=== PATIENT | female | born 2000 | race Two or more races ===

== ENCOUNTER 2024-03-21 09:29 | Inpatient (IN) | payer OTHER ==
[~2024-03-21] VITALS: Ht 182.9 cm; Wt 55.1 kg
[2024-03-21 10:21] LABS: Basophils # (auto) 0.1 10 ^3/uL (0-0.2); Basophils % (auto) 1.1 % (0.0-2.0); Eosinophils # (auto) 0 10 ^3/uL (0-0.8); Eosinophils % (auto) 0.2 % (0.0-7.0); Hematocrit 39.5 % (36.0-46.0); Hemoglobin 13.7 g/dL (12.2-16.2); Lymphocytes # (auto) 0.9 10 ^3/uL (0.4-5.4); Lymphocytes % (auto) 14.5 % (10.0-50.0); Mean Corpuscular Hemoglobin 34.4 pg (28.0-32.0); Mean Corpuscular Hgb Conc. 34.6 g/dL (32.0-36.0); Mean Corpuscular Volume 99.2 fL (80.0-100.0); Monocytes # (auto) 0.5 10 ^3/uL (0-1.3); Monocytes % (auto) 8.5 % (0.0-12.0); Neutrophils # (auto) 4.7 10 ^3/uL (1.6-8.6); Neutrophils % (auto) 75.7 % (37.0-80.0); Nucleated Red Blood Cells % 0.2 %; Red Blood Cells 3.98 10^6/uL (4.0-5.20); Red Cell Distribution Width 14.5 % (11.8-14.3); White Blood Cell 6.2 10^3/uL (4.4-10.8)
[2024-03-21 10:58] LABS: Alanine Aminotransferase 96 U/L (7-40); Albumin 4.5 g/dL (3.2-4.8); Alkaline Phosphatase 148 U/L (46-116); Anion Gap 10 (5-15); Aspartate Aminotransferase 146 U/L (13-40); Calcium 10.4 mg/dL (8.7-10.4); Carbon Dioxide 27 mmol/L (20-30); Chloride 100 mmol/L (98-107); Glucose 122 mg/dL (74-106); Sodium 137 mmol/L (136-145)
[2024-03-21 10:59] LABS: Bilirubin, Total 0.8 mg/dL (0.2-1.0)
[2024-03-21 11:06] LABS: BUN/Creatinine Ratio 9.8 (10.0-20.0); Blood Urea Nitrogen < 5 mg/dL (9-23)
[2024-03-21 11:19] VITALS: RESP 18; O2SAT 96
[2024-03-21] MEDS: SODIUM CHLORIDE 0.9% 1,000 ML IV ONE ×2 (11:33→11:34)
[2024-03-21] MEDS: THIAMINE 100mg/ml INJ (200mg/2ml VIAL) IV ONE (11:40)
[2024-03-21] MEDS ORDERED: ONDANSETRON HCL 4 MG/2 ML VIAL IV PRN (13:30)
[2024-03-21] MEDS ORDERED: HYDROcodone-ACET 5/325MG TAB PO PRN (13:30)
[2024-03-21] MEDS: LACTATED RINGER'S 2,000 ML IV ONE (13:30)
[2024-03-21] MEDS ORDERED: ACETAMINOPHEN 325 MG TAB PO PRN (13:30)
[2024-03-21] MEDS: PANTOPRAZOLE 40 MG/10 ML VIAL INJ IV SCH (13:30)
[2024-03-21] MEDS ORDERED: DOCUSATE SOD 100 MG CAP PO PRN (13:30)
[2024-03-21] MEDS: SODIUM CHLOR 0.9% PF (SALINE LOCK) 10ML VIAL/SYR IV SCH (14:22)
[2024-03-21] MEDS: LACTATED RINGER'S 1,000 ML IV ONE (15:50)
[2024-03-21 16:11] VITALS: PULSE 83; RESP 19; O2SAT 100
[2024-03-21 16:30] VITALS: BP 127/93; PULSE 83; RESP 19; TEMP 98; O2SAT 100
[2024-03-21] MEDS: LORazepam 2MG/ML-1ML VIAL IV PRN (19:12)
[2024-03-21 22:00] VITALS: BP 122/73; PULSE 75; RESP 18; TEMP 97.6; O2SAT 97
[2024-03-22 01:00] VITALS: BP 123/92; PULSE 69; RESP 19; TEMP 98; O2SAT 99
[2024-03-22 05:00] VITALS: BP 130/80; PULSE 60; RESP 17; TEMP 98.3; O2SAT 98
[2024-03-22 08:14] VITALS: BP 115/87; PULSE 102; RESP 16; TEMP 96.8; O2SAT 98
[2024-03-22 09:09] LABS: Basophils # (auto) 0 10 ^3/uL (0-0.2); Basophils % (auto) 0.4 % (0.0-2.0); Eosinophils # (auto) 0.1 10 ^3/uL (0-0.8); Eosinophils % (auto) 1.3 % (0.0-7.0); Hematocrit 40.1 % (36.0-46.0); Hemoglobin 13.7 g/dL (12.2-16.2); Lymphocytes # (auto) 0.9 10 ^3/uL (0.4-5.4); Lymphocytes % (auto) 18.3 % (10.0-50.0); Mean Corpuscular Hemoglobin 34.2 pg (28.0-32.0); Mean Corpuscular Hgb Conc. 34.1 g/dL (32.0-36.0); Mean Corpuscular Volume 100.2 fL (80.0-100.0); Monocytes # (auto) 0.4 10 ^3/uL (0-1.3); Monocytes % (auto) 7.6 % (0.0-12.0); Neutrophils # (auto) 3.7 10 ^3/uL (1.6-8.6); Neutrophils % (auto) 72.4 % (37.0-80.0); Nucleated Red Blood Cells % 0.1 %; Red Cell Distribution Width 14.8 % (11.8-14.3); White Blood Cell 5.1 10^3/uL (4.4-10.8)
[2024-03-22] MEDS: MAALOX PLUS or MAALOX 30 ML PO PRN (09:14)
[2024-03-22] MEDS: LACTULOSE 20Gm/30ML SOLN PO ONE (09:14)
[2024-03-22] MEDS: POTASSIUM CHL 20 Meq TABLET PO ONE ×2 (09:14→14:00)
[2024-03-22] MEDS: THIAMINE HCL 100 MG TAB PO SCH (09:15)
[2024-03-22] MEDS: ENOXAPARIN SOD 40 MG/0.4 ML SYRINGE SC SCH (09:15)
[2024-03-22] MEDS: FOLIC ACID 1 MG TAB PO SCH (09:15)
[2024-03-22 09:32] LABS: Alanine Aminotransferase 73 U/L (7-40); Alkaline Phosphatase 131 U/L (46-116); Anion Gap 10 (5-15); Aspartate Aminotransferase 132 U/L (13-40); Calcium 9.5 mg/dL (8.7-10.4); Carbon Dioxide 24 mmol/L (20-30); Chloride 104 mmol/L (98-107); Glucose 96 mg/dL (74-106); Potassium 3.3 mmol/L (3.5-5.1); Sodium 138 mmol/L (136-145)
[2024-03-22 09:33] LABS: Albumin 4.1 g/dL (3.2-4.8); Bilirubin, Total 2.3 mg/dL (0.2-1.0); Total Protein 7.4 g/dL (5.7-8.2)
[2024-03-22 09:34] LABS: Blood Urea Nitrogen < 5 mg/dL (9-23)
[2024-03-22 12:36] VITALS: BP 127/91; PULSE 73; RESP 15; TEMP 97.1; O2SAT 100
[2024-03-22] MEDS ORDERED: FOLI-119 PO (14:08)
[2024-03-22] MEDS ORDERED: THIA100T10 PO (14:08)
[2024-03-22 15:34] VITALS: BP 127/91; PULSE 73; RESP 15; TEMP 97.3; O2SAT 100
== END 2024-03-22 16:34 | disposition home or self-care (01) | DRG 203 ==
LOC: ER 09:29 → OVERFLOW 13:23 → CENTRAL 17:05
PROVIDERS: ADMIT Internal Medicine Pulmonary Disease; ATTEND Internal Medicine Pulmonary Disease
DX: M94.0 Chondrocostal junction syndrome [Tietze] (principal); E88.89 Other specified metabolic disorders; E80.6 Other disorders of bilirubin metabolism; F10.239 Alcohol dependence with withdrawal, unspecified; R74.01 Elevation of levels of liver transaminase levels; Y90.0 Blood alcohol level of less than 20 mg/100 ml; Z79.899 Other long term (current) drug therapy
CPT/HCPCS: 36415; 71045; 76705; 80053; 80320; 83735; 83880; 84484; 85025; 85379; 93005; 93970; 96361; 96374; 96375; G0378; J2470

== ENCOUNTER 2024-12-18 14:35 | Inpatient (IN) | payer MEDICAID, OTHER ==
[~2024-12-18] VITALS: Ht 160 cm; Wt 49.9 kg
[2024-12-18] MEDS: cefTRIAXone 1GM/50ML D5W 50 ML IV ONE (00:30)
[2024-12-18] MEDS: chlordiazePOXIDE HCL 25 MG CAP PO ONE (08:35)
[~2024-12-18 14:35] MED LIST: FOLI-119 PO; THIA100T10 PO
[2024-12-18] MEDS: SODIUM CHLORIDE 0.9% 1,000 ML IV ONE (15:00)
--- NOTE | 2024-12-18 15:01 | ED.PDOC ---
History of Present Illness HPI Comments 24 y.o female presents to the ED for a chief complaint of substernal chest pain associated with dizziness, blurred vision and right sided head pain s/p fall 3 days ago. Patient is unable to recall fall event due to drinking alcohol and states she has a history of alcohol abuse. Patient's last heavy drink was 3 days ago and today had one. Patient presents with tremors and constant chest pain that is non radiating. She denies any medical history or allergies. Chief Complaint: Withdrawal Time Seen by MD: 15:40 Primary Care Provider: Unknown Reviewed Notes: Nurses Notes, Medications, Allergies Allergies: Coded Allergies: NO KNOWN ALLERGIES (Unverified , 03/21/24) Home Meds Active Scripts Thiamine Hcl (VITAMIN B-1) 100 Mg Tb, 100 MG PO DAILY for 30 Days, #30 TAB Prov:FABIANO MURDOCK RESIDENT 03/22/24 Folic Acid (Folic Acid) 1 Mg Tab, 1 MG PO DAILY for 30 Days, #30 TAB Prov:FABIANO MURDOCK RESIDENT 03/22/24 Information Source: Patient Mode of Arrival: Ambulatory Severity: Moderate Timing: Hours Duration: Since onset Past Medical History PAST MEDICAL HISTORY: Denies Surgical History: Denies all surgeries ANIMAL KILLER History: No Pertinent ANIMAL KILLER History Family History Family History: Unknown Social History Smoker: Cigarettes Alcohol: Heavy Drugs: Marijuana Lives In: Home Constitutional: denies: chills, diaphoresis, fatigue, fever, malaise, sweats, weakness, others EENTM: reports: blurred vision; denies: double vision, ear bleeding, ear discharge, ear drainage, ear pain, ear ringing, eye pain, eye redness, hearing loss, mouth pain, mouth swelling, nasal discharge, nose bleeding, nose congestion, nose pain, photophobia, tearing, throat pain, throat swelling, voice changes, others Respiratory: denies: cough, hemoptysis, orthopnea, SOB at rest, shortness of breath, SOB with excertion, stridor, wheezing, others Cardiovascular: reports: chest pain; denies: dizzy spells, diaphoresis, Dyspnea on exertion, edema, irregular heart beat, left arm pain, lightheadedness, palpitations, PND, syncope, others Gastrointestinal: denies: abdomen distended, abdominal pain, blood streaked bowels, constipated, diarrhea, dysphagia, difficulty swallowing, hematemesis, melena, nausea, poor appetite, poor fluid intake, rectal bleeding, rectal pain, vomiting, others Genitourinary: denies: abnormal vagina bleeding, burning, dyspareunia, dysuria, flank pain, frequency, hematuria, incontinence, pain, , vagina discharge, urgency, others Neurological: reports: dizziness, headache, tremors; denies: fainting, left sided numbness, left sided weakness, numbness, paresthesia, pre-existing deficit, right sided numbness, right sided weakness, seizure, speech problems, tingling, weakness, others Musculoskeletal: denies: back pain, gout, joint pain, joint swelling, muscle pain, muscle stiffness, neck pain, others Integumetry: denies: bruises, change in color, change in hair/nails, dryness, laceration, lesions, lumps, rash, wounds, others Allergic/Immunocompromised: denies: Difficulty Healing, Frequent Infections, Hives, Itching, others Hematologic/Lymphatic: denies: anemia, blood clots, easy bleeding, easy bruising, swollen glands, others Endocrine: denies: excessive hunger, excessive sweating, excessive thirst, excessive urination, flushing, intolerance to cold, intolerance to heat, une xplained weight gain, unexplained weight loss, others Psychiatric: denies: anxiety, bipolar disorder, depression, hopeless, panic disorder, schizophrenia, sleepless, suicidal, others Physical Exam General Appearance: Mild Distress HEENT: PERRL/EOMI (Face symmetric. Moist mucous membranes.), Other (Face s ymmetric. Moist mucous membranes.) Neck: Full Range of Motion, Non-Tender, Normal Inspection, Supple Respiratory: Lungs Clear, No Accessory Muscle Use, No Respiratory Distress, Normal Breath Sounds, Other (Sternal abrasion and tenderness to palpation. No crepitus.) Cardiovascular: No Edema, No JVD, Tachycardia Breast Exam: Deferred Gastrointestinal: Non Tender, Soft Genitalia: Deferred Pelvic: Deferred Rectal: Deferred Extremities: Normal inspection, Normal range of motion, Non-tender, No pedal edema Neurologic: Alert (Oriented x4), Normal Affect, Other (Anxious. Tremulous. Ambulatory.) Cerebellar Function: Tremor Reflexes: NOT DONE Skin: Dry, Normal Color, Warm Lymphatic: NOT DONE Was a procedure done? Was a procedure done?: No Differential Dx Considerations may include: Minor head injury/concussion, skull fracture, intracranial hemorrhage, facial contusion, facial fracture, ETOH withdrawal, Dehydration/hypovolemia, Electrolyte imbalance, Anxiety, among others X-Ray, Labs, Meds, VS Vital Signs Date Time Temp Pulse Resp B/P (MAP) Pulse Ox O2 Delivery O2 Flow Rate FiO2 12/18/24 18:40 98.2 95 16 110/77 (88) 99 98.2 12/18/24 15:08 98.0 110 18 119/74 (89) 100 98.0 Lab Test 12/18/24 14:59 Range/Units White Blood Count 5.8 4.4-10.8 10^3/uL Red Blood Count 4.05 4.0-5.20 10^6/uL Hemoglobin 14.2 12.2-16.2 g/dL Hematocrit 41.2 36.0-46.0 % Mean Corpuscular Volume 101.7 H 80.0-100.0 fL Mean Corpuscular Hemoglobin 35.1 H 28.0-32.0 pg Mean Corpuscular Hemoglobin Concent 34.5 32.0-36.0 g/dL Red Cell Distribution Width 12.8 11.8-14.3 % Platelet Count 304 140-450 10^3/uL Mean Platelet Volume 7.8 6.9-10.8 fL Neutrophils (%) (Auto) 71.7 37.0-80.0 % Lymphocytes (%) (Auto) 19.8 10.0-50.0 % Monocytes (%) (Auto) 7.3 0.0-12.0 % Eosinophils (%) (Auto) 0.4 0.0-7.0 % Basophils (%) (Auto) 0.8 0.0-2.0 % Neutrophils # (Auto) 4.2 1.6-8.6 10 ^3/uL Lymphocytes # (Auto) 1.2 0.4-5.4 10 ^3/uL Monocytes # (Auto) 0.4 0-1.3 10 ^3/uL Eosinophils # (Auto) 0 0-0.8 10 ^3/uL Basophils # (Auto) 0 0-0.2 10 ^3/uL Nucleated Red Blood Cells 0.2 % Sodium Level 137 136-145 mmol/L Potassium Level 3.5 3.5-5.1 mmol/L Chloride Level 98 98-107 mmol/L Carbon Dioxide Level 26 20-31 mmol/L Anion Gap 13 5-15 Blood Urea Nitrogen 6 L 9-23 mg/dL Creatinine 0.44 L 0.550-1.02 mg/dL Glomerular Filtration Rate Calc 137 >90 mL/min BUN/Creatinine Ratio 13.6 10.0-20.0 Serum Glucose 103 74-106 mg/dL Calcium Level 10.2 8.7-10.4 mg/dL Plasma/Serum Blood Alcohol 140.3 H <10 mg/dL Current Medications Medications (Trade) Dose Ordered Sig/Daniela Route Start Time Stop Time Status Last Admin Sodium Chloride 1,000 ml @ 1,000 mls/hr Q1H ONCE IV 12/18/24 15:00 12/18/24 15:59 DC 12/18/24 15:00 Lorazepam (Ativan Inj) 1 mg ONCE ONCE IV 12/18/24 15:00 12/18/24 15:01 DC 12/18/24 18:35 Chlordiazepoxide HCl (Librium Capsule) 50 mg ONCE ONCE PO 12/18/24 15:00 12/18/24 15:01 DC 12/18/24 08:35 PROCEDURE(s): HWOCT - HEAD WITHOUT CONTRAST REASON: trauma ORDER NUMBER(s): [id number], ACCESSION NUMBER(s): [id number] EXAM: CT HEAD WITHOUT CONTRAST; DATE: 12/18/2024 08:26 PM HISTORY: trauma COMPARISON: None TECHNIQUE: Axial images were obtained and reformatted in coronal and sagittal planes. All CT scans at this medical facility are performed using dose modulation techniques as appropriate to a performed exam including the following: Automated exposure control was utilized; adjustment of the MA and/or KV according to patient size; and use of iterative reconstruction technique. CT Dose: CTDI volume is C1 mGy. Dose-length product is 2200 mGy*cm FINDINGS: Supratentorial Region: No evidence for large acute territorial ischemia. No intracranial hemorrhage is noted. Posterior Fossa: No acute abnormality. Brainstem: Unremarkable. Sellar/Suprasellar Region: Unremarkable. Ventricles, Cisterns, Sulci: Age-appropriate. Orbits: Unremarkable. Paranasal Sinuses: Unremarkable. Mastoid Air Cells: Unremarkable. Vasculature: Unremarkable. Bones/Soft Tissues: No acute abnormality. Other: None. IMPRESSION: 1. No acute intracranial process. EDURE(s): FAC2C - MAXILLOFACIAL WITHOUT REASON: trauma ORDER NUMBER(s): [id number], ACCESSION NUMBER(s): [id number] Procedure: CT MAXILLOFACIAL WITHOUT Study Date and Requested Time: 12/18/2024 08:26 PM History: trauma Comparison: None Dose: CTDI: 60.94 mGy DLP: 2200.99 mGycm Technique: Multiplanar images obtained through the face without intravenous contrast. Findings: No evidence of acute fracture or other significant osseous abnormality. Orbits and globes grossly unremarkable. Mild mucoperiosteal thickening of the right maxillary sinus. Otherwise, the Paranasal sinuses and right mastoid clear. Partial Opacification of left posterior and inferior mastoid. The nasal septum is relatively midline in position with left-sided nasal spurring. Nasal cavity and visualized nasopharynx and oropharynx grossly unremarkable with no evidence of focal lesion. Minimal right infraorbital soft tissue edema. Cerumen within the right external auditory canal. Impression: No evidence of acute traumatic fractures. Minimal right infraorbital soft tissue edema. Left mastoid disease. EDURE(s): CXR2 - CHEST TWO VIEWS ROUTINE REASON: sternal pain s/p fall ORDER NUMBER(s): [id number], ACCESSION NUMBER(s): [id number] EXAM: XY CHEST TWO VIEWS ROUTINE CLINICAL HISTORY: sternal pain s/p fall TECHNIQUE: Frontal and lateral views of the chest WID: COMPARISON: None FINDINGS: Lines and tubes: None Chest: The heart size and pulmonary vasculature is within normal limits. No pleural effusion, pneumothorax, or consolidation. The osseous structures are grossly intact. IMPRESSION: No acute cardiopulmonary abnormality. X-Ray, Labs, Meds, VS Comment 24-year-old female with a history of alcohol dependence complaining of right- sided headache, right-sided facial pain, dizziness and blurred vision status post fall while intoxicated. Vitals remarkable for heart rate 110, Exam remarkable for right head and facial soft tissue tenderness and right facial bruising, sternal tenderness to palpation with mild bruising, tremulousness Rhythm strip independently interpreted by me: Sinus tach, rate 110, no ectopy. CT head unremarkable CT maxillofacial bones Impression: No evidence of acute traumatic fractures. Minimal right infraorbital soft tissue edema. Left mastoid disease. Chest x-ray two views remarkable CBC and basic metabolic panel unremarkable, hCG negative, alcohol 140.3, UA, and urine drug screen pending Patient treated with the following in the ED: 2 L 0.9 normal saline IV bolus, Ativan 1 mg IV, Librium 50 mg p.o., Rocephin 1 g IV Re-evaluation, patient states symptoms have improved. Vitals are stable. Plan is to admit the patient for treatment of alcohol withdrawal and for IV antibiotics. Time of 1ST Reevaluation: 15:00 Reevaluation 1ST: Unchanged Patient Education/Counseling: Diagnosis, Treatment, Prognosis Family Education/Counseling: No Family Present Departure 1 Departure Time of Disposition: 22:13 Impression: Primary Impression: Alcohol withdrawal Additional Impression: Mastoiditis Disposition: 07 LEFT AWOL/ELOPED Admit to: Tele Condition: Guarded Critical Care Note Critical Care Time?: No Stability Stability form required: No I personally scribed for RUT ZAPATA MD ([facility]) on 12/18/24 at 15:01. Electronically submitted by Wendy Whitney ([facility]). RUT ZAPATA MD Dec 18, 2024 15:01
[2024-12-18 15:24] LABS: Potassium 3.5 mmol/L (3.5-5.1); Sodium 137 mmol/L (136-145)
[2024-12-18 15:25] LABS: Anion Gap 13 (5-15); Calcium 10.2 mg/dL (8.7-10.4); Carbon Dioxide 26 mmol/L (20-31)
[2024-12-18 15:27] LABS: Chloride 98 mmol/L (98-107)
[2024-12-18 15:30] LABS: BUN/Creatinine Ratio 13.6 (10.0-20.0); Blood Urea Nitrogen 6 mg/dL (9-23); Glucose 103 mg/dL (74-106)
[2024-12-18 15:33] LABS: Basophils # (auto) 0 10 ^3/uL (0-0.2); Basophils % (auto) 0.8 % (0.0-2.0); Eosinophils # (auto) 0 10 ^3/uL (0-0.8); Eosinophils % (auto) 0.4 % (0.0-7.0); Hematocrit 41.2 % (36.0-46.0); Hemoglobin 14.2 g/dL (12.2-16.2); Lymphocytes # (auto) 1.2 10 ^3/uL (0.4-5.4); Lymphocytes % (auto) 19.8 % (10.0-50.0); Mean Corpuscular Hemoglobin 35.1 pg (28.0-32.0); Mean Corpuscular Hgb Conc. 34.5 g/dL (32.0-36.0); Mean Corpuscular Volume 101.7 fL (80.0-100.0); Monocytes # (auto) 0.4 10 ^3/uL (0-1.3); Monocytes % (auto) 7.3 % (0.0-12.0); Neutrophils # (auto) 4.2 10 ^3/uL (1.6-8.6); Neutrophils % (auto) 71.7 % (37.0-80.0); Nucleated Red Blood Cells % 0.2 %; Platelet Count (auto) 304 10^3/uL (140-450); Red Blood Cells 4.05 10^6/uL (4.0-5.20); Red Cell Distribution Width 12.8 % (11.8-14.3); White Blood Cell 5.8 10^3/uL (4.4-10.8)
[2024-12-18] MEDS: LORazepam 2MG/ML-1ML VIAL IV ONE (18:35)
--- NOTE | 2024-12-18 20:58 | DVH ---
EXAM: XY CHEST TWO VIEWS ROUTINE CLINICAL HISTORY: sternal pain s/p fall TECHNIQUE: Frontal and lateral views of the chest WID: COMPARISON: None FINDINGS: Lines and tubes: None Chest: The heart size and pulmonary vasculature is within normal limits. No pleural effusion, pneumothorax, or consolidation. The osseous structures are grossly intact. IMPRESSION: No acute cardiopulmonary abnormality.
--- NOTE | 2024-12-18 21:23 | DVH ---
EXAM: CT HEAD WITHOUT CONTRAST; DATE: 12/18/2024 08:26 PM HISTORY: trauma COMPARISON: None TECHNIQUE: Axial images were obtained and reformatted in coronal and sagittal planes. All CT scans at this medical facility are performed using dose modulation techniques as appropriate t o a performed exam including the following: Automated exposure control was utilized; adjustment of th e MA and/or KV according to patient size; and use of iterative reconstruction technique. CT Dose: CTDI volume is C1 mGy. Dose-length product is 2200 mGy*cm FINDINGS: Supratentorial Region: No evidence for large acute territorial ischemia. No intracranial hemorrhage is noted. Posterior Fossa: No acute abnormality. Brainstem: Unremarkable. Sellar/Suprasellar Region: Unremarkable. Ventricles, Cisterns, Sulci: Age-appropriate. Orbits: Unremarkable. Paranasal Sinuses: Unremarkable. Mastoid Air Cells: Unremarkable. Vasculature: Unremarkable. Bones/Soft Tissues: No acute abnormality. Other: None. IMPRESSION: 1. No acute intracranial process.
--- NOTE | 2024-12-18 21:37 | DVH ---
Procedure: CT MAXILLOFACIAL WITHOUT Study Date and Requested Time: 2024 08:26 PM History: trauma Comparison: None Dose: CTDI: 60.94 mGy DLP: 2200.99 mGycm Technique: Multiplanar images obtained through the face without intravenous contrast. Findings: No evidence of acute fracture or other significant osseous abnormality. Orbits and globes grossly unr emarkable. Mild mucoperiosteal thickening of the right maxillary sinus. Otherwise, the Paranasal sinuses and ri ght mastoid clear. Partial Opacification of left posterior and inferior mastoid. The nasal septum is relatively midline in position with left-sided nasal spurring. Nasal cavity and visualized nasopharynx and oropharynx grossly unremarkable with no evidence of focal lesion. Minimal right infraorbital soft tissue edema. Cerumen within the right external auditory ca nal. Impression: No evidence of acute traumatic fractures. Minimal right infraorbital soft tissue edema. Left mastoid disease.
--- NOTE | 2024-12-18 23:52 | DVHHPRES ---
History of Present Illness Resident Creating Document: JOIE PALUMBO RESIDENT History of Present Illness Ms Raymond is a 24-year-old female with past medical history of alcoholism who does not follow a physician presented to the ER with a chief complaint of mechanical fall and intractable nausea and vomiting starting 12/15. Patient reports that she drinks around a large bottle of vodka daily at home, patient the same on 12/15 and then experienced a fall when she tripped in her house and hit her head and chest onto a hard surface. Patient was knocked out and her woke the patient up, denies any seizure-like activity, losing urine or bowel incontinence. Patient has been experiencing intractable nausea and vomiting, and vomited almost 10 times today, mostly mucoid denies any hemoptysis or hematemesis. Also reports chest pain which is sharp and pressure-type, midsternal radiating to the left shoulder, increases with ambulation or any kind of movement. Patient also reports palpable chest tenderness. Patient was previously admitted in this facility for similar reasons in February 21 Past medical history: Chronic alcoholism Past surgical history: None Social history: Lives with , drinks a large bottle of vodka daily for the past 12 years, uses marijuana gummies. PCP: None Home medications: None Patient seen and examined in the ER. Has a resting tremor. CIWA score is 17 Smoke: Quit ALCOHOL: heavy Drugs: Marijuana Lives: with Family Review of Systems Constitutional: Yes: Chills Respiratory: Pleuritic Pain Cardiovascular: Chest Pain, Paroxysmal Noc. Dyspnea Gastrointestinal: Nausea, Vomiting, Abdominal Pain, Constipation Musculoskeletal: shoulder pain Allergies: Coded Allergies: NO KNOWN ALLERGIES (Unverified , 03/21/24) Exam Vital Signs Vital Signs Date Time Temp Pulse Resp B/P (MAP) Pulse Ox O2 Delivery O2 Flow Rate FiO2 12/18/24 18:40 98.2 95 16 110/77 (88) 99 98.2 Exam Young female patient sitting in the chair comfortably in the ER, no acute distress General: Well-built, afebrile, palor, mucosae are moist Cardiovascular: Tachycardic but regular S1 and S2. No murmurs, gallops or rubs. No JVD elevation. No pedal edema. Palpable chest tenderness Respiratory: Normal B/L air entry on room air. Clear lung sounds on auscultation Abdomen: Soft, nontender, nondistended, normoactive bowel sounds, no rebound tenderness, no organomegaly, no masses Genitourinary: Deferred MSK/skin: Mobilizes 4 limbs. Skin is dry and warm Neurological: No motor, no sensitive deficits, normal speech. Pupils are isocoric and reactive. Psych/Mental Status: A/Ox3 Labs/Xrays Labs Test 12/18/24 14:59 Range/Units White Blood Count 5.8 4.4-10.8 10^3/uL Red Blood Count 4.05 4.0-5.20 10^6/uL Hemoglobin 14.2 12.2-16.2 g/dL Hematocrit 41.2 36.0-46.0 % Mean Corpuscular Volume 101.7 H 80.0-100.0 fL Mean Corpuscular Hemoglobin 35.1 H 28.0-32.0 pg Mean Corpuscular Hemoglobin Concent 34.5 32.0-36.0 g/dL Red Cell Distribution Width 12.8 11.8-14.3 % Platelet Count 304 140-450 10^3/uL Mean Platelet Volume 7.8 6.9-10.8 fL Neutrophils (%) (Auto) 71.7 37.0-80.0 % Lymphocytes (%) (Auto) 19.8 10.0-50.0 % Monocytes (%) (Auto) 7.3 0.0-12.0 % Eosinophils (%) (Auto) 0.4 0.0-7.0 % Basophils (%) (Auto) 0.8 0.0-2.0 % Neutrophils # (Auto) 4.2 1.6-8.6 10 ^3/uL Lymphocytes # (Auto) 1.2 0.4-5.4 10 ^3/uL Monocytes # (Auto) 0.4 0-1.3 10 ^3/uL Eosinophils # (Auto) 0 0-0.8 10 ^3/uL Basophils # (Auto) 0 0-0.2 10 ^3/uL Nucleated Red Blood Cells 0.2 % Sodium Level 137 136-145 mmol/L Potassium Level 3.5 3.5-5.1 mmol/L Chloride Level 98 98-107 mmol/L Carbon Dioxide Level 26 20-31 mmol/L Anion Gap 13 5-15 Blood Urea Nitrogen 6 L 9-23 mg/dL Creatinine 0.44 L 0.550-1.02 mg/dL Glomerular Filtration Rate Calc 137 >90 mL/min BUN/Creatinine Ratio 13.6 10.0-20.0 Serum Glucose 103 74-106 mg/dL Calcium Level 10.2 8.7-10.4 mg/dL Beta HCG, Quantitative 1.0 L 1.5-4.2 mIU/mL Plasma/Serum Blood Alcohol 140.3 H <10 mg/dL Assessment/Plan Assessment/Plan Alcoholic withdrawal-CIWA score 17 Chronic alcoholic dependence Mechanical fall and loss of consciousness Intractable nausea and vomiting Atypical chest pain, likely musculoskeletal Probable GERD Macrocytosis but no anemia Transaminitis Hypomagnesemia Plan: Head CT unremarkable for acute intracranial pathology IV lorazepam 1 mg Q 1 hour maximum of 3 doses ordered, followed by Librium Thiamine, folate supplemented. IV banana bag daily EKG pending, troponin I negative, BNP unremarkable Follow up with B12 and vitamin-D levels Follow up with liver ultrasound, hepatitis panel, lipase level 2 g magnesium ordered Pantoprazole 40 mg IV daily litigation services manager consulted for resources and primary care physician Lovenox 40 mg sc daily Diet: NPO Plan discussed with patient in which all questions have been answered Goals of care discussed for more than 20 minutes, full code status Case discussed with Dr. Potts Plan discussed with: Patient My Orders Orders - JOIE PALUMBO Procedure Category Date Status Time Admit ADMIT 12/18/24 Verified 23:51 Date of Service: Dec 18, 2024 Billing Provider: AG POTTS MD Common Visit Codes: [id number] INP/OBS CARE (HIGH) JOIE PALUMBO Dec 18, 2024 23:52
[2024-12-19] MEDS ORDERED: ONDANSETRON HCL 4 MG/2 ML VIAL IV PRN
[2024-12-19] MEDS ORDERED: HYDROcodone-ACET 5/325MG TAB PO PRN
[2024-12-19] MEDS ORDERED: KETOROLAC TROMETH 30 MG/ML 1ML VIAL IV ONE
[2024-12-19] MEDS: THIAMINE 100mg/ml INJ (200mg/2ml VIAL) IV ONE (00:44)
[2024-12-19] MEDS: FOLIC ACID 1 MG, MAGNESIUM SULF SDV 50% 8 MEQ, MULTIPLE VITAMIN 10 ML, THIAMINE INJ 100... INJ SCH (00:44)
[2024-12-19] MEDS: MULTIPLE VITAMIN TAB PO ONE (00:45)
[2024-12-19] MEDS: LORazepam 2MG/ML-1ML VIAL IV SCH (00:45)
[2024-12-19] MEDS: FOLIC ACID 1 MG TAB PO ONE (00:45)
[2024-12-19] MEDS: PANTOPRAZOLE 40 MG/10 ML VIAL INJ IV ONE (00:45)
[2024-12-19] MEDS: ACETAMINOPHEN 500 MG TAB or CAP PO PRN (00:46)
[2024-12-19] MEDS: ACETAMINOPHEN 325 MG TAB PO ONE (01:59)
[2024-12-19 02:09] LABS: Albumin 4.4 g/dL (3.2-4.8); Phosphorus 3.3 mg/dL (2.4-5.1); Total Protein 7.5 g/dL (5.7-8.2)
[2024-12-19 02:10] LABS: Bilirubin, Total 1.1 mg/dL (0.2-1.0)
[2024-12-19 02:28] LABS: Bilirubin, Direct 0.3 mg/dL (<0.3); Magnesium 1.5 mg/dL (1.6-2.6)
[2024-12-19 03:20] VITALS: BP 124/77; PULSE 75; RESP 17; TEMP 98.1; O2SAT 100
[2024-12-19 04:48] VITALS: BP 131/78; PULSE 89; RESP 15; TEMP 97.8; O2SAT 95
[2024-12-19 05:16] LABS: Basophils # (auto) 0 10 ^3/uL (0-0.2); Eosinophils # (auto) 0 10 ^3/uL (0-0.8); Hemoglobin 12.1 g/dL (12.2-16.2); Lymphocytes # (auto) 0.8 10 ^3/uL (0.4-5.4); Monocytes # (auto) 0.5 10 ^3/uL (0-1.3)
[2024-12-19 05:19] LABS: Basophils % (auto) 0.8 % (0.0-2.0); Eosinophils % (auto) 0.6 % (0.0-7.0); Hematocrit 34.6 % (36.0-46.0); Lymphocytes % (auto) 18.1 % (10.0-50.0); Mean Corpuscular Hemoglobin 35.6 pg (28.0-32.0); Mean Corpuscular Volume 101.7 fL (80.0-100.0); Monocytes % (auto) 11.4 % (0.0-12.0); Neutrophils # (auto) 3.1 10 ^3/uL (1.6-8.6); Neutrophils % (auto) 69.1 % (37.0-80.0); Nucleated Red Blood Cells % 0.2 %; Platelet Count (auto) 210 10^3/uL (140-450); Red Cell Distribution Width 12.6 % (11.8-14.3); White Blood Cell 4.4 10^3/uL (4.4-10.8)
[2024-12-19] MEDS: chlordiazePOXIDE HCL 25 MG CAP PO SCH (05:29)
[2024-12-19] MEDS: MAGNESIUM SULFATE 1GM/100ML 100 ML IV SCH (05:43)
[2024-12-19 05:50] LABS: Anion Gap 8 (5-15); Calcium 9.6 mg/dL (8.7-10.4); Carbon Dioxide 26 mmol/L (20-31); Chloride 102 mmol/L (98-107); Glucose 82 mg/dL (74-106); Potassium 3.5 mmol/L (3.5-5.1); Sodium 136 mmol/L (136-145); Total Protein 6.8 g/dL (5.7-8.2)
[2024-12-19 05:54] LABS: Alanine Aminotransferase 79 U/L (7-40); Alkaline Phosphatase 237 U/L (46-116); Aspartate Aminotransferase 183 U/L (13-40); BUN/Creatinine Ratio 12.2 (10.0-20.0); Blood Urea Nitrogen < 5 mg/dL (9-23)
[2024-12-19] MEDS: POTASSIUM CHL 20MEQ/50ML 50 ML IV ONE ×2 (06:47→07:00)
[2024-12-19] MEDS: ERGOCALCIFEROL 50,000 UNIT(1.25MG) CAP PO SCH (07:08)
[2024-12-19] MEDS ORDERED: SODIUM CHLORIDE 0.9% 1,000 ML IV SCH (08:15)
--- NOTE | 2024-12-19 09:04 | DVH ---
INDICATION: transamnitis TECHNIQUE: Multiple real-time sonographic images were obtained of the right upper quadrant. COMPARISON: US ABDOMEN LIMITED on DOS: 03/21/24 FINDINGS: The liver demonstrates heterogenous echotexture without focal mass lesions. The liver measu res 19 cm. There is no intrahepatic or extrahepatic ductal dilatation. The common duct measures 0. 2 mm. Gallbladder sludge.. The gallbladder wall measures 0.2 mm and is within normal limits. The right kidney measures 11 cm. The right kidney is normal in contour, size, and shape. The echogen icity is normal. Moderate right hydronephrosis. The pancreas is not well visualized due to overlying bowel gas. IMPRESSION: Gallbladder sludge. Moderate right hydronephrosis. Hepatic steatosis
[2024-12-19] MEDS: FOLIC ACID 1 MG TAB PO SCH (09:46)
[2024-12-19] MEDS ORDERED: PANTOPRAZOLE 40 MG/10 ML VIAL INJ IV SCH (10:00)
[2024-12-19] MEDS: THIAMINE 100mg/ml INJ (200mg/2ml VIAL) IM ONE (11:43)
[2024-12-19 12:05] LABS: Hepatitis B Surface Antibody Positive (Negative); Hepatitis B Surface Antigen Negative (Negative); Hepatitis C Antibody Negative (Negative)
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
[2024-12-20] MEDS ORDERED: THIAMINE HCL 100 MG TAB PO SCH (10:00)
[2024-12-20] MEDS ORDERED: chlordiazePOXIDE HCL 25 MG CAP PO SCH (10:00)
[2024-12-21] MEDS ORDERED: chlordiazePOXIDE HCL 25 MG CAP PO SCH (10:00)
[2024-12-22] MEDS ORDERED: chlordiazePOXIDE HCL 25 MG CAP PO SCH (07:00)
== END 2024-12-19 12:45 | disposition left against medical advice (07) | DRG 243 ==
LOC: ER 14:51 → OVERFLOW 23:51
PROVIDERS: ADMIT Student in an Organized Health Care Education/Training Program; ATTEND Emergency Medicine
DX: K21.9 Gastro-esophageal reflux disease without esophagitis (principal); N13.30 Unspecified hydronephrosis; K76.0 Fatty (change of) liver, not elsewhere classified; H70.892 Other mastoiditis and related conditions, left ear; F10.239 Alcohol dependence with withdrawal, unspecified; D75.89 Other specified diseases of blood and blood-forming organs; F17.210 Nicotine dependence, cigarettes, uncomplicated; E83.42 Hypomagnesemia; Z53.29 Procedure and treatment not carried out because of patient's decision for other reasons; Y90.6 Blood alcohol level of 120-199 mg/100 ml
CPT/HCPCS: 36415; 70450; 70486; 71046; 76705; 80048; 80053; 80076; 80320; 82306; 82607; 82746; 83036; 83690; 83735; 83880; 84100; 84443; 84484; 84702; 85025; 86706; 86803; 87040; 87340; 96365; 96375; G0378; J2470

== ENCOUNTER 2025-01-02 15:10 | Inpatient (IN) | payer MEDICAID ==
[~2025-01-02] VITALS: Ht 160 cm; Wt 49.5 kg
[2025-01-02] MEDS: LORazepam 2MG/ML-1ML VIAL IV ONE ×2 (15:37→20:42)
[2025-01-02 15:46] LABS: Basophils # (auto) 0.1 10 ^3/uL (0-0.2); Basophils % (auto) 0.8 % (0.0-2.0); Eosinophils # (auto) 0 10 ^3/uL (0-0.8); Eosinophils % (auto) 0.2 % (0.0-7.0); Hematocrit 42.3 % (36.0-46.0); Hemoglobin 14.7 g/dL (12.2-16.2); Lymphocytes # (auto) 0.7 10 ^3/uL (0.4-5.4); Lymphocytes % (auto) 9.7 % (10.0-50.0); Mean Corpuscular Hemoglobin 35.1 pg (28.0-32.0); Mean Corpuscular Hgb Conc. 34.7 g/dL (32.0-36.0); Mean Corpuscular Volume 100.9 fL (80.0-100.0); Monocytes # (auto) 0.5 10 ^3/uL (0-1.3); Monocytes % (auto) 6.3 % (0.0-12.0); Neutrophils # (auto) 6.3 10 ^3/uL (1.6-8.6); Nucleated Red Blood Cells % 0.1 %; Platelet Count (auto) 261 10^3/uL (140-450); Red Blood Cells 4.19 10^6/uL (4.0-5.20); Red Cell Distribution Width 12.8 % (11.8-14.3); White Blood Cell 7.6 10^3/uL (4.4-10.8)
--- NOTE | 2025-01-02 16:24 | ED.PDOC ---
History of Present Illness HPI Comments 24-year-old female with PMHx Alcoholism presents with a chief complaint of alcohol withdrawal. Patient states that her last drink was last night where she had a beer. Patient reports a headache, dizziness, nausea, vomiting, chest pressure, and tremors. Patient normally drinks daily or hard liquor. Patient is visibly anxious in triage and unable to sit still. Patient sttates that visual hallucinations and hears "ringing". Chief Complaint: Withdrawal Time Seen by MD: 16:22 Primary Care Provider: UNKNOWN Reviewed Notes: Medications, Allergies Allergies: Coded Allergies: NO KNOWN ALLERGIES (Unverified , 03/21/24) Home Meds Active Scripts Thiamine Hcl (VITAMIN B-1) 100 Mg Tb, 100 MG PO DAILY for 30 Days, #30 TAB Prov:FABIANO MURDOCK RESIDENT 03/22/24 Folic Acid (Folic Acid) 1 Mg Tab, 1 MG PO DAILY for 30 Days, #30 TAB Prov:FABIANO MURDOCK RESIDENT 03/22/24 Information Source: Patient Mode of Arrival: Ambulatory Severity: Moderate Timing: Hours Duration: Since onset Prehospital treatment: None Past Medical History PAST MEDICAL HISTORY: Denies Surgical History: Denies all surgeries [employer] History: No Pertinent [employer]ER History Family History Family History: Unknown Social History Smoker: Cigarettes Alcohol: Heavy Drugs: Marijuana Lives In: Home Constitutional: denies: chills, diaphoresis, fatigue, fever, malaise, sweats, weakness, others EENTM: denies: blurred vision, double vision, ear bleeding, ear discharge, ear drainage, ear pain, ear ringing, eye pain, eye redness, hearing loss, mouth pain, mouth swelling, nasal discharge, nose bleeding, nose congestion, nose pain, photophobia, tearing, throat pain, throat swelling, voice changes, others Respiratory: denies: cough, hemoptysis, orthopnea, SOB at rest, shortness of breath, SOB with excertion, stridor, wheezing, others Cardiovascular: denies: chest pain, dizzy spells, diaphoresis, Dyspnea on exertion, edema, irregular heart beat, left arm pain, lightheadedness, palpitations, PND, syncope, others Gastrointestinal: reports: nausea, vomiting; denies: abdomen distended, abdominal pain, blood streaked bowels, constipated, diarrhea, dysphagia, difficulty swallowing, hematemesis, melena, poor appetite, poor fluid intake, rectal bleeding, rectal pain, others Genitourinary: denies: abnormal vagina bleeding, burning, dyspareunia, dysuria, flank pain, frequency, hematuria, incontinence, pain, , vagina discharge, urgency, others Neurological: reports: dizziness, tremors; denies: fainting, headache, left sided numbness, left sided weakness, numbness, paresthesia, pre-existing deficit, right sided numbness, right sided weakness, seizure, speech problems, tingling, weakness, others Musculoskeletal: denies: back pain, gout, joint pain, joint swelling, muscle pa in, muscle stiffness, neck pain, others Integumetry: denies: bruises, change in color, change in hair/nails, dryness, laceration, lesions, lumps, rash, wounds, others Allergic/Immunocompromised: denies: Difficulty Healing, Frequent Infections, Hives, Itching, others Hematologic/Lymphatic: denies: anemia, blood clots, easy bleeding, easy bruising, swollen glands, others Endocrine: denies: excessive hunger, excessive sweating, excessive thirst, excessive urination, flushing, intolerance to cold, intolerance to heat, unexplained weight gain, unexplained weight loss, others Psychiatric: denies: anxiety, bipolar disorder, depression, hopeless, panic disorder, schizophrenia, sleepless, suicidal, others All Other Systems: Reviewed and Negative Physical Exam General Appearance: Moderate Distress, Normal, Other (ANXIOUS APPEARING) HEENT: Normal ENT Inspection, Pharynx Normal, TMs Normal Neck: Full Range of Motion, Non-Tender, Normal, Normal Inspection Respiratory: Chest Non-Tender, Lungs Clear, No Accessory Muscle Use, No Respiratory Distress, Normal Breath Sounds Cardiovascular: No Edema, No JVD, No Murmur, No Gallop, Tachycardia Breast Exam: Deferred Gastrointestinal: No Organomegaly, Non Tender, No Pulsatile Mass, Normal Bowel Sounds, Soft Genitalia: Deferred Pelvic: Deferred Rectal: Deferred Extremities: No calf tenderness, Normal capillary refill, Normal inspection, Normal range of motion, Non-tender, No pedal edema Neurologic: Alert, net washer II-XII nml as Tested, No Motor Deficits, Normal Affect, Normal Mood, No Sensory Deficits Cerebellar Function: Normal Reflexes: Normal Skin: Dry, Normal Color, Warm Lymphatic: No Adenopathy Was a procedure done? Was a procedure done?: No Differential Dx Considerations may include: Seizures, alcohol withdrawal, delirium tremors, X-Ray, Labs, Meds, VS Vital Signs Date Time Temp Pulse Resp B/P (MAP) Pulse Ox O2 Delivery O2 Flow Rate FiO2 01/02/25 20:00 89 01/02/25 19:53 98.1 93 24 115/83 (94) 97 98.1 01/02/25 19:53 86 16 97 Room Air* 0 21 01/02/25 18:01 98.1 90 16 115/90 (98) 97 98.1 01/02/25 15:53 97.8 86 16 119/84 (96) 97 97.8 01/02/25 15:53 Room Air* 0 21 01/02/25 15:16 98.0 105 20 128/78 (95) 97 98.0 Lab Test 01/02/25 20:26 01/02/25 17:32 01/02/25 15:31 01/02/25 15:21 Range/Units Urine Color Pending Urine Clarity Pending Urine pH Pending Urine Specific [place] Pending Urine Protein Pending Urine Ketones Pending Urine Blood Pending Urine Nitrite Pending Urine Bilirubin Pending Urine Urobilinogen Pending Urine Leukocyte Esterase Pending Urine RBC Pending Urine Microscopic WBC Pending Urine Squamous Epithelial Cells Pending Urine Bacteria Pending Urine Glucose Pending Sodium Level 137 136-145 mmol/L Potassium Level 3.7 3.5-5.1 mmol/L Chloride Level 100 98-107 mmol/L Carbon Dioxide Level 27 20-31 mmol/L Anion Gap 10 5-15 Blood Urea Nitrogen < 5 L 9-23 mg/dL Creatinine 0.44 L 0.550-1.02 mg/dL Glomerular Filtration Rate Calc 137 >90 mL/min BUN/Creatinine Ratio 11.4 10.0-20.0 Serum Glucose 96 74-106 mg/dL Calcium Level 9.6 8.7-10.4 mg/dL Total Bilirubin 1.4 H 0.2-1.0 mg/dL Aspartate Amino Transferase (AST) 231 H 13-40 U/L Alanine Aminotransferase (ALT) 95 H 7-40 U/L Alkaline Phosphatase 276 H 46-116 U/L Total Protein 7.0 5.7-8.2 g/dL Albumin 4.1 3.2-4.8 g/dL Lipase 29 12-53 U/L Plasma/Serum Blood Alcohol 4.5 <10 mg/dL White Blood Count 7.6 4.4-10.8 10^3/uL Red Blood Count 4.19 4.0-5.20 10^6/uL Hemoglobin 14.7 12.2-16.2 g/dL Hematocrit 42.3 36.0-46.0 % Mean Corpuscular Volume 100.9 H 80.0-100.0 fL Mean Corpuscular Hemoglobin 35.1 H 28.0-32.0 pg Mean Corpuscular Hemoglobin Concent 34.7 32.0-36.0 g/dL Red Cell Distribution Width 12.8 11.8-14.3 % Platelet Count 261 140-450 10^3/uL Mean Platelet Volume 8.2 6.9-10.8 fL Neutrophils (%) (Auto) 83.0 H 37.0-80.0 % Lymphocytes (%) (Auto) 9.7 L 10.0-50.0 % Monocytes (%) (Auto) 6.3 0.0-12.0 % Eosinophils (%) (Auto) 0.2 0.0-7.0 % Basophils (%) (Auto) 0.8 0.0-2.0 % Neutrophils # (Auto) 6.3 1.6-8.6 10 ^3/uL Lymphocytes # (Auto) 0.7 0.4-5.4 10 ^3/uL Monocytes # (Auto) 0.5 0-1.3 10 ^3/uL Eosinophils # (Auto) 0 0-0.8 10 ^3/uL Basophils # (Auto) 0.1 0-0.2 10 ^3/uL Nucleated Red Blood Cells 0.1 % POC Glucose 127 H 70-106 mg/dl Current Medications Medications (Trade) Dose Ordered Sig/Daniela Route Start Time Stop Time Status Last Admin Lorazepam (Ativan Inj) 0.5 mg ONCE ONCE IV 01/02/25 15:30 01/02/25 15:31 DC 01/02/25 15:37 Folic Acid 1 mg/ Multivitamins 10 ml/Magnesium Sulfate 8 meq/ Thiamine HCl 100 mg/Dextrose 1,013.2 ml @ 125.001 mls/hr DAILY@1800 INJ 01/02/25 18:00 01/02/25 18:19 Famotidine (Pepcid Injection) 20 mg ONCE ONCE IV 01/02/25 17:15 01/02/25 17:16 DC 01/02/25 17:25 Ondansetron HCl (Zofran) 4 mg ONCE ONCE IV 01/02/25 17:15 01/02/25 17:16 DC 01/02/25 17:25 Lorazepam (Ativan Inj) 0.5 mg ONCE ONCE IV 01/02/25 20:30 01/02/25 20:31 DC 01/02/25 20:42 Prochlorperazine Edisylate (Compazine Inj) 5 mg ONCE ONCE IV 01/02/25 20:30 01/02/25 20:31 DC 01/02/25 20:41 X-Ray, Labs, Meds, VS Comment Imaging: X-rays and CT scans were reviewed and interpreted by this provider, imaging shows no fractures and no pathological disease. Pending radiology review. Laboratory: Labs reviewed and interpreted by this provider. No significant abnormalities noted. Patient has prior medical visits reviewed. Med reconciliation performed Vital signs reviewed Patient will be admitted for alcohol withdrawal Patient's CIWA score of 20 Patient currently has been antibiotic running Has been given Ativan 0.5 with good effect Given Pepcid 24 acid reflux and stomach pains Time of 1ST Reevaluation: 16:53 Reevaluation 1ST: Unchanged Patient Education/Counseling: Diagnosis, Treatment, Need For Follow Up Family Education/Counseling: Diagnosis, Treatment Departure 1 Departure Time of Disposition: 20:48 Impression: Primary Impression: Alcohol withdrawal Qualified Codes: F10.931 - Alcohol use, unspecified with withdrawal delirium Disposition: ADMITTED INPATIENT Condition: Stable Discharged With: Self Critical Care Note Critical Care Time?: No Stability Stability form required: No Heart Score Heart Score: Heart Score Response (Comments) Value History N/A 0 EKG N/A 0 Age N/A 0 Risk Factors N/A 0 Troponin N/A 0 Total 0 I personally scribed for BEULAH REN ([email or web address]) on 01/02/25 at 16:24. Electronically submitted by Kelechi Wang ([email or web address]). BEULAH REN January 02, 2025 16:24
[2025-01-02] MEDS: FAMOTIDINE (10MG/ML) 2ML VL IV ONE (17:25)
[2025-01-02] MEDS: ONDANSETRON HCL 4 MG/2 ML VIAL IV ONE (17:25)
[2025-01-02 18:16] LABS: Chloride 100 mmol/L (98-107); Sodium 137 mmol/L (136-145)
[2025-01-02 18:17] LABS: Alanine Aminotransferase 95 U/L (7-40); Albumin 4.1 g/dL (3.2-4.8); Alkaline Phosphatase 276 U/L (46-116); Anion Gap 10 (5-15); Aspartate Aminotransferase 231 U/L (13-40); BUN/Creatinine Ratio 11.4 (10.0-20.0); Bilirubin, Total 1.4 mg/dL (0.2-1.0); Blood Alcohol 4.5 mg/dL (<10); Blood Urea Nitrogen < 5 mg/dL (9-23); Calcium 9.6 mg/dL (8.7-10.4); Carbon Dioxide 27 mmol/L (20-31); Glucose 96 mg/dL (74-106); Potassium 3.7 mmol/L (3.5-5.1)
[2025-01-02] MEDS: FOLIC ACID 1 MG, MULTIPLE VITAMIN 10 ML, MAGNESIUM SULF SDV 50% 8 MEQ, THIAMINE INJ 100... INJ SCH (18:19)
[2025-01-02 18:28] LABS: Lipase 29 U/L (12-53)
[2025-01-02 19:53] VITALS: PULSE 86; RESP 16; O2SAT 97
[2025-01-02 20:27] LABS: Urine Bacteria None Seen /hpf (None Seen)
[2025-01-02] MEDS: PROCHLORPERAZINE EDISYLATE 5 MG/ML 2ML VIAL IV ONE (20:41)
[2025-01-02 20:45] LABS: Urine Blood Negative /uL (Negative); Urine Clarity Clear (Clear); Urine Color Light-Orange (Yellow); Urine Mucus FEW (None Seen); Urine Protein, UAD 1+ (Negative); Urine Specific Gravity 1.023 (1.001-1.035); Urine Squamous Epithelial Cell FEW /hpf (<5); Urine Urobilinogen Normal (Negative); Urine WBC < 1 /HPF (0-5); Urine pH 8.5 (5.0-9.0)
[2025-01-02] MEDS ORDERED: LORazepam 0.5 MG TAB PO PRN (22:00)
[2025-01-02] MEDS ORDERED: chlordiazePOXIDE HCL 5 MG CAP PO SCH (22:00)
[2025-01-02] MEDS ORDERED: ONDANSETRON HCL 4 MG/2 ML VIAL IV PRN (22:00)
[2025-01-02] MEDS ORDERED: SODIUM CHLORIDE 0.9% 1,000 ML IV SCH (22:00)
[2025-01-02] MEDS: MULTIPLE VITAMIN TAB PO SCH (22:14)
[2025-01-02] MEDS: chlordiazePOXIDE HCL 25 MG CAP PO SCH (22:14)
[2025-01-02] MEDS: FOLIC ACID 1 MG TAB PO SCH (22:14)
[2025-01-02 23:01] LABS: INR 1.15 (0.9-1.15); Partial Thromboplastin Time 26.6 SEC (24.5-34.5)
[2025-01-02 23:03] LABS: Cannabinoid Screen, Urine Neg (NEGATIVE)
[2025-01-02 23:04] LABS: Amphetamine Screen, Urine Neg (NEGATIVE); Barbiturate Scree,Urine Neg (NEGATIVE); Benzodiazephine Screen, Urine Pos (NEGATIVE); Cocaine Screen, Urine Neg (NEGATIVE); Opiate Scree,Urine Neg (NEGATIVE); Phencyclidine Screen, Urine Neg (NEGATIVE)
--- NOTE | 2025-01-03 03:38 | DVHHP2 ---
History of Present Illness History of Present Illness 24-year-old female with a history of alcohol use disorder presents with symptoms consistent with alcohol withdrawal. Patient reports her last alcoholic drink was the night prior (a beer). She normally consumes hard liquor or beer daily. On presentation, she was visibly anxious, unable to sit still, and endorsed auditory and visual hallucinations, including hearing ringing. She also reported headache, dizziness, nausea, vomiting, chest pressure, and tremors. During my assessment, she was noted to be mildly tremulous and a bit drowsy but oriented. CIWA score on arrival was 20, decreased to 3 after treatment. Patient also mentioned mild chest pain overnight. 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 Otherwise unremarkable per ROS in chart. Review of Systems Allergies: Coded Allergies: NO KNOWN ALLERGIES (Unverified , 03/21/24) Medications Current Medications Medications Dose Ordered Sig/Daniela Route Start Time Stop Time Status Last Admin Dose Admin Lorazepam 0.5 mg Q6HP PRN PO 01/02/25 22:00 Cancel Ondansetron HCl 4 mg Q4HP PRN IV 01/02/25 22:00 Folic Acid 1 mg DAILY PO 01/02/25 22:00 01/02/25 22:14 1 MG Multivitamins 1 tab DAILY PO 01/02/25 22:00 01/02/25 22:14 1 TAB Chlordiazepoxide HCl 50 mg Q8HR PO 01/02/25 22:15 01/03/25 14:01 01/02/25 22:14 50 MG Chlordiazepoxide HCl 50 mg Q12HR PO 01/04/25 10:00 01/04/25 22:01 Chlordiazepoxide HCl 25 mg Q12HR PO 01/05/25 10:00 01/05/25 22:01 Chlordiazepoxide HCl 25 mg QAM PO 01/06/25 07:00 01/06/25 07:01 Folic Acid 1 mg/ Magnesium Sulfate 8 meq/ Multivitamins 10 ml/Thiamine HCl 100 mg/Sodium Chloride 1,013.2 ml @ 126.247 mls/hr DAILY@1800 INJ 01/03/25 18:00 Thiamine HCl 100 mg DAILY PO 01/03/25 10:00 Exam Vital Signs Vital Signs Date Time Temp Pulse Resp B/P (MAP) Pulse Ox O2 Delivery O2 Flow Rate FiO2 01/03/25 01:59 61 16 103/58 (73) 97 01/02/25 19:53 98.1 98.1 01/02/25 19:53 Room Air* 0 21 Exam Physical Exam: General: Anxious, mildly drowsy, tremulous HEENT: No signs of trauma Lungs: Clear to auscultation CV: Normal S1/S2, no murmurs Abdomen: Soft, non-distended Neuro: Mild tremors, oriented, no focal deficits Skin: No signs of trauma or jaundice Psych: Anxious, reports hallucinations to previous provider Labs/Xrays Labs Test 01/02/25 22:14 01/02/25 20:52 01/02/25 20:26 01/02/25 17:32 Range/Units Prothrombin Time 12.0 H 9.3-11.8 sec Prothrombin Time INR 1.15 0.9-1.15 Activated Partial Thromboplast Time 26.6 24.5-34.5 SEC Urine Opiates Screen Neg NEGATIVE Urine Fentanyl Screen Neg NEGATIVE Urine Barbiturates Screen Neg NEGATIVE Urine Phencyclidine Screen Neg NEGATIVE Urine Amphetamines Screen Neg NEGATIVE Urine Benzodiazepines Screen Pos NEGATIVE Urine Cocaine Screen Neg NEGATIVE Urine Cannabinoids Screen Neg NEGATIVE Urine Color Light-orange Yellow Urine Clarity Clear Clear Urine pH 8.5 5.0-9.0 Urine Specific [place] 1.023 1.001-1.035 Urine Protein 1+ H Negative Urine Ketones 1+ H Negative Urine Blood Negative Negative /uL Urine Nitrite Negative Negative Urine Bilirubin Negative Negative Urine Urobilinogen Normal Negative mg/dL Urine Leukocyte Esterase Negative Negative /uL Urine RBC 2 0 - 4 /hpf Urine Microscopic WBC < 1 0-5 /HPF Urine Squamous Epithelial Cells Few <5 /hpf Urine Bacteria None seen None Seen /hpf Urine Mucus Few None Seen Urine Glucose Normal Normal mg/dL Sodium Level 137 136-145 mmol/L Potassium Level 3.7 3.5-5.1 mmol/L Chloride Level 100 98-107 mmol/L Carbon Dioxide Level 27 20-31 mmol/L Anion Gap 10 5-15 Blood Urea Nitrogen < 5 L 9-23 mg/dL Creatinine 0.44 L 0.550-1.02 mg/dL Glomerular Filtration Rate Calc 137 >90 mL/min BUN/Creatinine Ratio 11.4 10.0-20.0 Serum Glucose 96 74-106 mg/dL Calcium Level 9.6 8.7-10.4 mg/dL Total Bilirubin 1.4 H 0.2-1.0 mg/dL Aspartate Amino Transferase (AST) 231 H 13-40 U/L Alanine Aminotransferase (ALT) 95 H 7-40 U/L Alkaline Phosphatase 276 H 46-116 U/L Troponin I High Sensitivity < 3 L </=34 ng/L Total Protein 7.0 5.7-8.2 g/dL Albumin 4.1 3.2-4.8 g/dL Lipase 29 12-53 U/L Plasma/Serum Blood Alcohol 4.5 <10 mg/dL Test 01/02/25 15:31 01/02/25 15:21 Range/Units White Blood Count 7.6 4.4-10.8 10^3/uL Red Blood Count 4.19 4.0-5.20 10^6/uL Hemoglobin 14.7 12.2-16.2 g/dL Hematocrit 42.3 36.0-46.0 % Mean Corpuscular Volume 100.9 H 80.0-100.0 fL Mean Corpuscular Hemoglobin 35.1 H 28.0-32.0 pg Mean Corpuscular Hemoglobin Concent 34.7 32.0-36.0 g/dL Red Cell Distribution Width 12.8 11.8-14.3 % Platelet Count 261 140-450 10^3/uL Mean Platelet Volume 8.2 6.9-10.8 fL Neutrophils (%) (Auto) 83.0 H 37.0-80.0 % Lymphocytes (%) (Auto) 9.7 L 10.0-50.0 % Monocytes (%) (Auto) 6.3 0.0-12.0 % Eosinophils (%) (Auto) 0.2 0.0-7.0 % Basophils (%) (Auto) 0.8 0.0-2.0 % Neutrophils # (Auto) 6.3 1.6-8.6 10 ^3/uL Lymphocytes # (Auto) 0.7 0.4-5.4 10 ^3/uL Monocytes # (Auto) 0.5 0-1.3 10 ^3/uL Eosinophils # (Auto) 0 0-0.8 10 ^3/uL Basophils # (Auto) 0.1 0-0.2 10 ^3/uL Nucleated Red Blood Cells 0.1 % POC Glucose 127 H 70-106 mg/dl Assessment/Plan Assessment/Plan #Acute alcohol hepatitis #Alcohol withdrawal CIWA 20 at admission #Hepatic steatosis #Right hydronephrosis Admit Med surg CIWA score 20 --> 3 Banana bag Librium protocol MVI Thiamine Folic acid Ceftriaxone IV F/u on [facility] due to moderate hydronephrosis on november [address] Potts Full code Plan discussed with: Patient, Other (rn) My Orders Orders - BOWEN MARTINEZ Procedure Category Date Status Time Admit ADMIT 01/02/25 Transmitted 21:52 Code Status CODE 01/02/25 Transmitted 21:52 Vital Signs JUAN 01/02/25 In Process 21:52 Review Orders With JUAN 01/02/25 In Process Adm. 21:52 Regular Diet DIET 01/03/25 Transmitted Breakfast Notify Md Of Changes JUAN 01/02/25 In Process From Base 21:52 Advance Directive JUAN 01/02/25 In Process 21:52 Patient Condition ORDERS 01/02/25 Transmitted 21:52 Allergies JUAN 01/02/25 In Process 21:52 Ondansetron Hcl PHA 01/02/25 In Process (Zofran) 22:00 Folic Acid Tablet PHA 01/02/25 In Process 22:00 Multiple Vitamin PHA 01/02/25 In Process Tablet (Mvi Tab) 22:00 Etoh Withdrawal JUAN 01/02/25 In Process Assessment 21:56 Electrocardigram EKG 01/02/25 Logged 21:58 Chlordiazepoxide Hcl PHA 01/02/25 In Process Capsule (Librium Ca 22:15 Folic Acid... PHA 01/03/25 In Process 18:00 Thiamine Tab PHA 01/03/25 In Process 10:00 Acute Hepatitis Panel LAB 01/02/25 In Process 22:03 Chlordiazepoxide Hcl PHA 01/04/25 In Process Capsule (Librium Ca 10:00 Chlordiazepoxide Hcl PHA 01/05/25 In Process Capsule (Librium Ca 10:00 Chlordiazepoxide Hcl PHA 5/17/25 In Process Capsule (Librium Ca 07:00 Date of Service: January 02, 2025 Billing Provider: AG POTTS MD Common Visit Codes: 48568-PSLFZCN INP/OBS CARE (HIGH) Secondary Visit Codes: 38583-ONJGAOCV CARE PLAN 30 MINUTES BOWEN MARTINEZ RESIDENT January 03, 2025 03:38
[2025-01-03 05:04] LABS: Basophils # (auto) 0 10 ^3/uL (0-0.2); Basophils % (auto) 0.5 % (0.0-2.0); Eosinophils # (auto) 0.1 10 ^3/uL (0-0.8); Eosinophils % (auto) 1.5 % (0.0-7.0); Hematocrit 37.2 % (36.0-46.0); Hemoglobin 12.8 g/dL (12.2-16.2); Lymphocytes # (auto) 0.8 10 ^3/uL (0.4-5.4); Mean Corpuscular Hemoglobin 34.5 pg (28.0-32.0); Mean Corpuscular Hgb Conc. 34.4 g/dL (32.0-36.0); Mean Corpuscular Volume 100.5 fL (80.0-100.0); Monocytes # (auto) 0.4 10 ^3/uL (0-1.3); Monocytes % (auto) 8.4 % (0.0-12.0); Neutrophils # (auto) 3.8 10 ^3/uL (1.6-8.6); Neutrophils % (auto) 74.6 % (37.0-80.0); Platelet Count (auto) 164 10^3/uL (140-450); Red Cell Distribution Width 12.7 % (11.8-14.3); White Blood Cell 5.2 10^3/uL (4.4-10.8)
[2025-01-03 05:25] LABS: Albumin 4.2 g/dL (3.2-4.8); Anion Gap 8 (5-15); Calcium 9.3 mg/dL (8.7-10.4); Carbon Dioxide 28 mmol/L (20-31); Chloride 98 mmol/L (98-107); Glucose 98 mg/dL (74-106); Potassium 3.7 mmol/L (3.5-5.1); Sodium 134 mmol/L (136-145); Total Protein 7.1 g/dL (5.7-8.2)
[2025-01-03 05:26] LABS: Alanine Aminotransferase 84 U/L (7-40); Alkaline Phosphatase 277 U/L (46-116); Aspartate Aminotransferase 250 U/L (13-40); BUN/Creatinine Ratio 9.1 (10.0-20.0); Bilirubin, Total 2.1 mg/dL (0.2-1.0); Blood Urea Nitrogen < 5 mg/dL (9-23)
--- NOTE | 2025-01-03 07:48 | DVH ---
INDICATION: h/o moderate hydronephrosis TECHNIQUE: Multiple real-time sonographic images of the kidneys and bladder were obtained. COMPARISON: None FINDINGS: The right kidney measures 10.6 cm in length, which is normal in size. There is normal echog enicity of the right kidney. Mild hydronephrosis. The left kidney measures 10.6 cm in length, which is normal in size. There is normal echogenicity of the left kidney. No hydronephrosis. No large intraluminal masses are seen in the bladder. Prior to voiding the bladder volume measures vo lume 146 cc. IMPRESSION: 1. Mild right hydronephrosis.
[2025-01-03] MEDS: cefTRIAXone 1GM/50ML D5W 50 ML IV SCH (09:58)
[2025-01-03] MEDS ORDERED: THIAMINE 100mg/ml INJ (200mg/2ml VIAL) IV SCH (10:00)
[2025-01-03 10:09] LABS: Hepatitis B Surface Antigen Negative (Negative)
[2025-01-03 10:16] LABS: Hepatitis A Ab IgM Negative; Hepatitis B Core IgM Negative (Negative)
[2025-01-03 10:17] LABS: Hepatitis C Antibody Negative (Negative)
[2025-01-03] MEDS: THIAMINE HCL 100 MG TAB PO SCH (10:21)
[2025-01-03 11:17] VITALS: BP 105/61; PULSE 78; RESP 17; TEMP 98.4; O2SAT 97
[2025-01-03 11:30] VITALS: PULSE 69; RESP 16; O2SAT 100
[2025-01-03 12:28] VITALS: PULSE 69; RESP 16; O2SAT 100
[2025-01-03 12:38] VITALS: BP 97/63; PULSE 69; RESP 16; TEMP 98.2; O2SAT 100
[2025-01-03] MEDS ORDERED: FOLIC ACID 1 MG, MAGNESIUM SULF SDV 50% 8 MEQ, MULTIPLE VITAMIN 10 ML, THIAMINE INJ 100... INJ SCH (18:00)
--- NOTE | 2025-01-03 18:55 | DVHDSRES ---
Discharge Summary Date of Admission Resident Creating Document: MARTIN SEN RESIDENT January 02, 2025 at 21:52 Date of Discharge: January 03, 2025 Admitting Diagnosis Alcohol withdrawal Labs/Diagnostic Data: Laboratory Results Test 01/03/25 04:48 01/02/25 22:14 01/02/25 20:52 01/02/25 20:26 White Blood Count 5.2 10^3/uL (4.4-10.8) Red Blood Count 3.70 10^6/uL (4.0-5.20) Hemoglobin 12.8 g/dL (12.2-16.2) Hematocrit 37.2 % (36.0-46.0) Mean Corpuscular Volume 100.5 fL (80.0-100.0) Mean Corpuscular Hemoglobin 34.5 pg (28.0-32.0) Mean Corpuscular Hemoglobin Concent 34.4 g/dL (32.0-36.0) Red Cell Distribution Width 12.7 % (11.8-14.3) Platelet Count 164 10^3/uL (140-450) Mean Platelet Volume 8.0 fL (6.9-10.8) Neutrophils (%) (Auto) 74.6 % (37.0-80.0) Lymphocytes (%) (Auto) 15.0 % (10.0-50.0) Monocytes (%) (Auto) 8.4 % (0.0-12.0) Eosinophils (%) (Auto) 1.5 % (0.0-7.0) Basophils (%) (Auto) 0.5 % (0.0-2.0) Neutrophils # (Auto) 3.8 10 ^3/uL (1.6-8.6) Lymphocytes # (Auto) 0.8 10 ^3/uL (0.4-5.4) Monocytes # (Auto) 0.4 10 ^3/uL (0-1.3) Eosinophils # (Auto) 0.1 10 ^3/uL (0-0.8) Basophils # (Auto) 0 10 ^3/uL (0-0.2) Nucleated Red Blood Cells 0.0 % Sodium Level 134 mmol/L (136-145) Potassium Level 3.7 mmol/L (3.5-5.1) Chloride Level 98 mmol/L (98-107) Carbon Dioxide Level 28 mmol/L (20-31) Anion Gap 8 (5-15) Blood Urea Nitrogen < 5 mg/dL (9-23) Creatinine 0.55 mg/dL (0.550-1.02) Glomerular Filtration Rate Calc 130 mL/min (>90) BUN/Creatinine Ratio 9.1 (10.0-20.0) Serum Glucose 98 mg/dL (74-106) Calcium Level 9.3 mg/dL (8.7-10.4) Total Bilirubin 2.1 mg/dL (0.2-1.0) Aspartate Amino Transferase (AST) 250 U/L (13-40) Alanine Aminotransferase (ALT) 84 U/L (7-40) Alkaline Phosphatase 277 U/L (46-116) Total Protein 7.1 g/dL (5.7-8.2) Albumin 4.2 g/dL (3.2-4.8) Prothrombin Time 12.0 sec (9.3-11.8) Prothrombin Time INR 1.15 (0.9-1.15) Activated Partial Thromboplast Time 26.6 SEC (24.5-34.5) Hepatitis A IgM Antibody Negative Hepatitis B Surface Antigen Negative (Negative) Hepatitis B Core IgM Antibody Negative (Negative) Hepatitis C Antibody Negative (Negative) Urine Opiates Screen Neg (NEGATIVE) Urine Fentanyl Screen Neg (NEGATIVE) Urine Barbiturates Screen Neg (NEGATIVE) Urine Phencyclidine Screen Neg (NEGATIVE) Urine Amphetamines Screen Neg (NEGATIVE) Urine Benzodiazepines Screen Pos (NEGATIVE) Urine Cocaine Screen Neg (NEGATIVE) Urine Cannabinoids Screen Neg (NEGATIVE) Urine Color Light-orange (Yellow) Urine Clarity Clear (Clear) Urine pH 8.5 (5.0-9.0) Urine Specific [place] 1.023 (1.001-1.035) Urine Protein 1+ (Negative) Urine Ketones 1+ (Negative) Urine Blood Negative /uL (Negative) Urine Nitrite Negative (Negative) Urine Bilirubin Negative (Negative) Urine Urobilinogen Normal mg/dL (Negative) Urine Leukocyte Esterase Negative /uL (Negative) Urine RBC 2 /hpf (0 - 4) Urine Microscopic WBC < 1 /HPF (0-5) Urine Squamous Epithelial Cells Few /hpf (<5) Urine Bacteria None seen /hpf (None Seen) Urine Mucus Few (None Seen) Urine Glucose Normal mg/dL (Normal) Test 01/02/25 17:32 5/13/25 15:21 Troponin I High Sensitivity < 3 ng/L (</=34) Lipase 29 U/L (12-53) Plasma/Serum Blood Alcohol 4.5 mg/dL (<10) POC Glucose 127 mg/dl (70-106) Other Laboratory Tests 01/03/25 04:48 Brief Hx & Hospital Course: 24-year-old patient with a history of alcohol use since age 15, presents to the hospital with symptoms of alcohol withdrawal, including shakiness and chest pain. The patient reports experiencing similar symptoms a week ago, when they came to the hospital but left due to it being overcrowded. Her current episode began yesterday with shakiness and chest pain. She was diagnosed with probable alcohol withdrawal upon arrival and were started on IV hydration, which has improved her condition. The patient reports a 9-year history of alcohol use, typically consuming a bottle of vodka on weekends and 1-2 beers on weekdays. Associated symptoms include frequent nausea and vomiting, primarily occurring in the mornings on most days. Regarding their current hospital stay, the patient reports feeling better than yesterday and has regained their appetite after receiving IV fluids and benzodiazepines. She was able to eat sandwiches for breakfast. Medical History - Gastroesophageal reflux disease (GERD) - History of alcohol withdrawal symptoms - Liver inflammation due to alcohol use During my assessment, she was noted to be mildly tremulous and a bit drowsy but oriented. CIWA score on arrival was 20, decreased to 3 after treatment. Patient requested to go AMA, Counselled patient about risk for AMA including, DT, Seizure and even , patient verbalized understanding and signed AMA. Condition at Discharge: Undetermined Final Diagnosis/Problems List #Acute alcohol hepatitis #Alcohol withdrawal CIWA 20 at admission #Hepatic steatosis #Right hydronephrosis Discharge Disposition: AMA SNF Discharge Will this Physician continue t: No Discharge Statement: "Patient was advised to return to the ER or call 911 if any headaches, dizziness, shortness of breath, chest pain, abdominal pain, bleeding, fevers, or worsening of medical condition. Patient was counseled about treatment plan, medications, possible side effects, patient�verbalized understanding. All questions were answered to the best of my ability. This discharge took greater then 30 minutes in planning, reviewing documentation, counseling the patient, and discussing with other team members." ASSESSMENT ASSESSMENT Assessment MARTIN SEN RESIDENT January 03, 2025 18:55
[2025-01-04] MEDS ORDERED: THIAMINE 100mg/ml INJ (200mg/2ml VIAL) IV SCH (10:00)
[2025-01-04] MEDS ORDERED: chlordiazePOXIDE HCL 25 MG CAP PO SCH (10:00)
[2025-01-05] MEDS ORDERED: chlordiazePOXIDE HCL 25 MG CAP PO SCH (10:00)
[2025-01-06] MEDS ORDERED: chlordiazePOXIDE HCL 25 MG CAP PO SCH (07:00)
== END 2025-01-03 16:00 | disposition left against medical advice (07) | DRG 280 ==
LOC: ER 15:18 → OVERFLOW 21:52 → EAST 01-03 10:57
PROVIDERS: ADMIT Student in an Organized Health Care Education/Training Program; ATTEND Student in an Organized Health Care Education/Training Program
DX: K70.10 Alcoholic hepatitis without ascites (principal); N13.30 Unspecified hydronephrosis; F10.239 Alcohol dependence with withdrawal, unspecified; K76.0 Fatty (change of) liver, not elsewhere classified; Z53.29 Procedure and treatment not carried out because of patient's decision for other reasons; F17.210 Nicotine dependence, cigarettes, uncomplicated; K21.9 Gastro-esophageal reflux disease without esophagitis; Z88.8 Allergy status to other drugs, medicaments and biological substances; Z79.899 Other long term (current) drug therapy; Y90.0 Blood alcohol level of less than 20 mg/100 ml
CPT/HCPCS: 36415; 76775; 80053; 80074; 80307; 80320; 81001; 82962; 83690; 84484; 85025; 85610; 85730; 96365; 96375; G0378; J2405; J3490

== ENCOUNTER 2025-01-16 19:19 | Emergency (ER) | payer MEDICAID ==
[~2025-01-16] VITALS: Ht 160 cm; Wt 49.5 kg
[2025-01-16 19:20] VITALS: BP 149/90; RESP 22; TEMP 99.5; O2SAT 98
[2025-01-16] MEDS ORDERED: LORazepam 2MG/ML-1ML VIAL IV ONE (19:45)
[2025-01-16] MEDS ORDERED: ONDANSETRON ODT 4 MG TAB PO ONE (19:45)
[2025-01-16] MEDS ORDERED: SODIUM CHLORIDE 0.9% 1,000 ML IV ONE (19:45)
[2025-01-16 19:50] LABS: Basophils # (auto) 0 10 ^3/uL (0-0.2); Basophils % (auto) 0.4 % (0.0-2.0); Eosinophils # (auto) 0 10 ^3/uL (0-0.8); Eosinophils % (auto) 0.2 % (0.0-7.0); Hematocrit 40.6 % (36.0-46.0); Hemoglobin 14.1 g/dL (12.2-16.2); Lymphocytes # (auto) 0.7 10 ^3/uL (0.4-5.4); Lymphocytes % (auto) 11.2 % (10.0-50.0); Mean Corpuscular Hemoglobin 34.7 pg (28.0-32.0); Mean Corpuscular Hgb Conc. 34.6 g/dL (32.0-36.0); Mean Corpuscular Volume 100.2 fL (80.0-100.0); Monocytes # (auto) 0.4 10 ^3/uL (0-1.3); Monocytes % (auto) 6.5 % (0.0-12.0); Neutrophils # (auto) 4.8 10 ^3/uL (1.6-8.6); Neutrophils % (auto) 81.7 % (37.0-80.0); Platelet Count (auto) 161 10^3/uL (140-450); Red Blood Cells 4.05 10^6/uL (4.0-5.20); Red Cell Distribution Width 12.8 % (11.8-14.3); White Blood Cell 5.9 10^3/uL (4.4-10.8)
[2025-01-16 20:04] LABS: Anion Gap 12 (5-15); BUN/Creatinine Ratio 8.6 (10.0-20.0); Carbon Dioxide 28 mmol/L (20-31); Magnesium 1.8 mg/dL (1.6-2.6); Potassium 4.1 mmol/L (3.5-5.1); Sodium 137 mmol/L (136-145)
[2025-01-16] MEDS ORDERED: PANTOPRAZOLE 40 MG TAB PO ONE (20:30)
[2025-01-16] MEDS ORDERED: SUCRALFATE 1 GM TAB PO ONE (20:30)
[2025-01-16] MEDS ORDERED: LIDOCAINE VISCOUS 2% 15ML UD PO ONE (20:30)
[2025-01-16 20:46] LABS: Cannabinoid Screen, Urine Neg (NEGATIVE)
--- NOTE | 2025-01-16 20:47 | DVH ---
CHEST RADIOGRAPH Indication: cp Technique: Single frontal view of the chest was obtained COMPARISON: XY CHEST PORTABLE on DOS: 12/18/2024 FINDINGS: Lines and Tubes: None Lungs: Clear Pleura: No effusion. No pneumothorax. Cardiomediastinal contours: Unremarkable IMPRESSION: No abnormality.
[2025-01-16 20:52] LABS: Alanine Aminotransferase 168 U/L (7-40); Albumin 4.9 g/dL (3.2-4.8); Alkaline Phosphatase 408 U/L (46-116); Aspartate Aminotransferase 611 U/L (13-40); Bilirubin, Total 1.9 mg/dL (0.2-1.0); Blood Urea Nitrogen 5 mg/dL (9-23); Calcium 11.3 mg/dL (8.7-10.4); Chloride 97 mmol/L (98-107); Glucose 112 mg/dL (74-106); Total Protein 8.4 g/dL (5.7-8.2)
--- NOTE | 2025-01-16 20:55 | ECG ---
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
[2025-01-16 20:57] LABS: Urine Bacteria None Seen /hpf (None Seen)
[2025-01-16 20:58] LABS: Amphetamine Screen, Urine Neg (NEGATIVE); Barbiturate Scree,Urine Neg (NEGATIVE); Benzodiazephine Screen, Urine Pos (NEGATIVE); Cocaine Screen, Urine Neg (NEGATIVE); Opiate Scree,Urine Neg (NEGATIVE); Phencyclidine Screen, Urine Neg (NEGATIVE)
[2025-01-16 21:04] LABS: Lipase 33 U/L (12-53)
[2025-01-16 21:09] LABS: Urine Blood Negative /uL (Negative); Urine Clarity Turbid (Clear); Urine Color Yellow (Yellow); Urine Mucus FEW (None Seen); Urine Protein, UAD 1+ (Negative); Urine Specific Gravity 1.025 (1.001-1.035); Urine Squamous Epithelial Cell MOD /hpf (<5); Urine Urobilinogen 4 mg/dL (Negative); Urine WBC 16 /HPF (0-5); Urine pH 8.5 (5.0-9.0)
--- NOTE | 2025-01-16 22:20 | ED.PDOC ---
History of Present Illness HPI Comments HPI: Poor Historian. 24 -year-old female presents to emergency department with multiple complaints. Most recent alcohol intake was this morning. Patient has history of alcoholism. She states that she feels this way to the she drinks excessively. Patient smokes marijuana occasionally. Patient presents with multiple complaints including epigastric discomfort that radiates to her substernal area with the associated belching. Denies any vomiting. Patient says she has some tremors and she is concerned that she might be withdrawing. PATIENT ALSO COMPLAINS OF URINARY SYMPTOMS STATES HAVING BURNING WITH URINATION INCREASED FREQUENCY. Vitals: temperature of 99.5F, pulse of 108, respiratory rate of 22, blood pressure of 149/90, and a SpO2 of 98%RA Past Medical History: ALCOHOL ABUSE, GASTRITIS, Past Surgical History: DENIES ANY REVIEW OF SYSTEMS: CONSTITUTIONAL: Denies acute: fever, diaphoresis, chills, HEAD: Denies acute: headache, photophobia Eyes: Denies acute: Double vision, vision loss, eye pain, eye discharge. EARS: Denies acute: tinnitus, hearing loss, ear discharge, ear pain, THROAT: Denies acute: sore throat, swelling, difficulty swallowing , pain with swallowing, change in voice. NECK: Denies acute: neck pain, neck swelling, stiff neck. HEART: Denies acute : , palpitations, LUNGS: Denies acute: SOB, wheezing, cough, hemoptysis ABDOMEN: Denies acute: , Nausea, Vomiting, diarrhea, melena , hematemesis, hematochezia SKIN: Denies acute: rash, redness, lesions, itchiness. EXTREMITIES: Denies acute: calf pain, numbness, tingling, weakness, denies pain in extremity. Denies acute: Low back pain. Neuro: Denies acute: focal neurological deficit, motor or sensory focal neurological deficit, seizure like activity, confusion, dizziness, change in mental status, loss of bowel or bladder function, cauda equina like symptoms. : Denies acute: dysuria, hematuria, flank pain, increase in urinary frequency. PSYCH: Denies acute: hallucination, suicidal ideation, homicidal ideation. FEMALE: Denies acute: abnormal vaginal bleeding, foul odor, unusual discharge. PHYSICAL EXAM: General: ---mild-----acute distress, awake and alert. Head: normocephalic, atraumatic. Neck: supple, trachea is midline, no swelling. Throat: Normal phonation. Eyes:, no erythema, no purulent discharge, no proptosis, no icterus. Heart: regular tachycardic,, no significant murmur appreciated. Lungs: no apparent respiratory distress, Able to speak in full sentences. No wheezing, no rhonchi, no crackles. No stridors Clear to auscultation bilaterally. Abdomen: Minimal epigastric tender to palpation, non distended, soft, no guarding, no rebound, + bowel sounds. Neuro: Awake, Alert, oriented to name, self, situation, follows commands GCS=15. Speech is normal. Skin: no petechia, no purpura, no cyanosis, non-pale, not jaundice. Lower extremities: --no - Pitting edema no deformity, no focal swelling, no calf TTP. Makes eye contact. moves all four extremities. Face: no apparent facial droop. Ambulating in the ED independently. ED COURSE: Chief Complaint: Withdrawal Time Seen by MD: 19:23 Primary Care Provider: UNKNOWN Reviewed Notes: Nurses Notes, Allergies Allergies: Coded Allergies: NO KNOWN ALLERGIES (Unverified , 03/21/24) Home Meds Active Scripts Thiamine Hcl (VITAMIN B-1) 100 Mg Tb, 100 MG PO DAILY for 30 Days, #30 TAB Prov:FABIANO MURDOCK RESIDENT 03/22/24 Folic Acid (Folic Acid) 1 Mg Tab, 1 MG PO DAILY for 30 Days, #30 TAB Prov:FABIANO MURDOCK RESIDENT 03/22/24 Information Source: Patient Mode of Arrival: Ambulatory Past Medical History Past Medical History (Other): gastritis Surgical History: Denies all surgeries 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 Was a procedure done?: No EKG EKG : Pulse Rate (adult): 95 [place]: Normal Cardiac Rhythm: NSR Block: None Hypertrophy: None ST: Normal Differential Dx Considerations may include: DDX include Diverticulitis, colitis, gastroenteritis, acute abdomen, SBO, enteritis, constipation, volvulus, appendicitis, Gallbladder disease, choledocolithiasis, ascending cholangitis, pancreatitis, intraAbdominal mass/neoplasm, hepatitis, UTI, pylonephritis, kidney stone, aneurysm, dissection, Inflammatory bowel disease, gastroparesis, ischemic bowel, ovarian torsion, ovarian cyst/mass, tubo-ovarian abscess, , ectopic , PID, STD. X-Ray, Labs, Meds, VS Vital Signs Date Time Temp Pulse Resp B/P (MAP) Pulse Ox O2 Delivery O2 Flow Rate FiO2 01/17/25 02:58 95 01/16/25 19:27 95 01/16/25 19:20 99.5 108 22 149/90 (109) 98 99.5 Lab Test 01/16/25 20:33 01/16/25 19:32 01/16/25 19:30 Range/Units Troponin I High Sensitivity < 3 L < 3 L </=34 ng/L Urine Color Yellow Yellow Urine Clarity Turbid H Clear Urine pH 8.5 5.0-9.0 Urine Specific [place] 1.025 1.001-1.035 Urine Protein 1+ H Negative Urine Ketones 2+ H Negative Urine Blood Negative Negative /uL Urine Nitrite Negative Negative Urine Bilirubin Negative Negative Urine Urobilinogen 4 H Negative mg/dL Urine Leukocyte Esterase 1+ Negative /uL Urine RBC 1 0 - 4 /hpf Urine Microscopic WBC 16 H 0-5 /HPF Urine Squamous Epithelial Cells Mod <5 /hpf Urine Bacteria None seen None Seen /hpf Urine Mucus Few None Seen Urine Glucose Normal Normal mg/dL Urine Opiates Screen Neg NEGATIVE Urine Fentanyl Screen Neg NEGATIVE Urine Barbiturates Screen Neg NEGATIVE Urine Phencyclidine Screen Neg NEGATIVE Urine Amphetamines Screen Neg NEGATIVE Urine Benzodiazepines Screen Pos NEGATIVE Urine Cocaine Screen Neg NEGATIVE Urine Cannabinoids Screen Neg NEGATIVE White Blood Count 5.9 4.4-10.8 10^3/uL Red Blood Count 4.05 4.0-5.20 10^6/uL Hemoglobin 14.1 12.2-16.2 g/dL Hematocrit 40.6 36.0-46.0 % Mean Corpuscular Volume 100.2 H 80.0-100.0 fL Mean Corpuscular Hemoglobin 34.7 H 28.0-32.0 pg Mean Corpuscular Hemoglobin Concent 34.6 32.0-36.0 g/dL Red Cell Distribution Width 12.8 11.8-14.3 % Platelet Count 161 140-450 10^3/uL Mean Platelet Volume 8.5 6.9-10.8 fL Neutrophils (%) (Auto) 81.7 H 37.0-80.0 % Lymphocytes (%) (Auto) 11.2 10.0-50.0 % Monocytes (%) (Auto) 6.5 0.0-12.0 % Eosinophils (%) (Auto) 0.2 0.0-7.0 % Basophils (%) (Auto) 0.4 0.0-2.0 % Neutrophils # (Auto) 4.8 1.6-8.6 10 ^3/uL Lymphocytes # (Auto) 0.7 0.4-5.4 10 ^3/uL Monocytes # (Auto) 0.4 0-1.3 10 ^3/uL Eosinophils # (Auto) 0 0-0.8 10 ^3/uL Basophils # (Auto) 0 0-0.2 10 ^3/uL Nucleated Red Blood Cells 0.0 % Sodium Level 137 136-145 mmol/L Potassium Level 4.1 3.5-5.1 mmol/L Chloride Level 97 L 98-107 mmol/L Carbon Dioxide Level 28 20-31 mmol/L Anion Gap 12 5-15 Blood Urea Nitrogen 5 L 9-23 mg/dL Creatinine 0.58 0.550-1.02 mg/dL Glomerular Filtration Rate Calc 128 >90 mL/min BUN/Creatinine Ratio 8.6 L 10.0-20.0 Serum Glucose 112 H 74-106 mg/dL Lactic Acid Level 1.6 0.4-2.0 mmol/L Calcium Level 11.3 H 8.7-10.4 mg/dL Magnesium Level 1.8 1.6-2.6 mg/dL Total Bilirubin 1.9 H 0.2-1.0 mg/dL Aspartate Amino Transferase (AST) 611 H 13-40 U/L Alanine Aminotransferase (ALT) 168 H 7-40 U/L Alkaline Phosphatase 408 H 46-116 U/L Total Protein 8.4 H 5.7-8.2 g/dL Albumin 4.9 H 3.2-4.8 g/dL Lipase 33 12-53 U/L Plasma/Serum Blood Alcohol 65.0 H <10 mg/dL [facility] [id number] [facility] [address] Ph: [phone] DIAGNOSTIC IMAGING Diagnostic Imaging Report : [id number] Signed PATIENT: DAYANA RIGGS ACCT: [id number] UNIT: [id number] : 2000 LOC: ER ROOM / BED: / AGE / SEX: 24 / F ADM STATUS: REG ER SERVICE 19 ORDERING PHYSICIAN: SHARMIN SWAN DO PROCEDURE(s): CXRP - CHEST PORTABLE REASON: cp ORDER NUMBER(s): [id number], ACCESSION NUMBER(s): [id number] CHEST RADIOGRAPH Indication: cp Technique: Single frontal view of the chest was obtained COMPARISON: XY CHEST PORTABLE on DOS: 12/18/2024 FINDINGS: Lines and Tubes: None Lungs: Clear Pleura: No effusion. No pneumothorax. Cardiomediastinal contours: Unremarkable IMPRESSION: No abnormality. ATED BY: YOUNG MOELLER MD DICTATED DATE/TIME: 01/16/252044 SIGNED BY: YOUNG MOELLER MD SIGNED DATE/TIME: 01/16/252044 CC: Time of 1ST Reevaluation: 19:23 Reevaluation 1ST: Unchanged Patient Education/Counseling: Diagnosis, Treatment Family Education/Counseling: No Family Present Comments Patient was placed up for admission but she eloped. Departure 1 Departure Time of Disposition: 22:28 Impression: Primary Impression: Alcoholic gastritis Additional Impressions: Alcohol withdrawal Elevated LFTs Eloped from emergency department Disposition: 09 ADMITTED INPATIENT Admit to: [facility] Condition: Guarded Discharged With: Self Critical Care Note Critical Care Time?: No Heart Score Heart Score: Heart Score Response (Comments) Value History Slightly Suspicious 0 EKG Normal 0 Age <45 0 Risk Factors No known risk factors 0 Troponin Normal limit 0 Total 0 I personally scribed for SHARMIN SWAN DO ([email or web address]) on 01/17/25 at 02:58. Electronically submitted by Adam Mccrary ([email or web address]). SHARMIN SWAN DO January 16, 2025 22:20
[2025-01-17 02:58] VITALS: PULSE 95
== END 2025-01-16 22:47 | disposition left against medical advice (07) ==
LOC: ER 19:19
DX: K29.20 Alcoholic gastritis without bleeding (principal); F10.939 Alcohol use, unspecified with withdrawal, unspecified; R94.5 Abnormal results of liver function studies; F17.210 Nicotine dependence, cigarettes, uncomplicated; F12.90 Cannabis use, unspecified, uncomplicated; Z79.899 Other long term (current) drug therapy; Y90.9 Presence of alcohol in blood, level not specified
CPT/HCPCS: 36415; 71045; 80053; 80307; 80320; 81001; 83605; 83690; 83735; 84484; 85025; 93005

== ENCOUNTER 2025-02-04 19:03 | Emergency (ER) | payer MEDICAID ==
[~2025-02-04] VITALS: Ht 160 cm; Wt 48.3 kg
[2025-02-04 19:03] VITALS: TEMP 98.4
--- NOTE | 2025-02-04 19:25 | ED.PDOC ---
Psychiatric HPI Comments 24 y.o female presents to the ED for a chief complaint of dizziness associated with tremors and chest pain that started earlier today. Patient reports heavy ETOH abuse for the past 5 years involving heavy liquor, last drink was today at 0300 in which symptoms presented after stopping. Patient denies any nausea, vomiting, fever, chills, diarrhea, abdominal pain. Patient also admits to using marijuana and tobacco yesterday. Chief Complaint: Withdrawal Time Seen by MD: 19:20 Primary Care Provider: UNKNOWN Reviewed Notes: Nurses Notes, Medications, Allergies Information Source: Patient Mode of Arrival: Ambulatory Severity: Able to Care for Self Timing: Hours Duration: Since onset Presents with: None Circumstance: Withdrawal Symptoms Current substance abuse: ETOH Stressors: None History of: None Associated signs and symptoms: ETOH Past Medical History PAST MEDICAL HISTORY: Denies Surgical History: Denies all surgeries CABLE SWAGER History: No Pertinent CABLE SWAGER History Family History Family History: Unknown Social History Smoker: Cigarettes Alcohol: Heavy Drugs: Marijuana Lives In: Home Constitutional: denies: chills, diaphoresis, fatigue, fever, malaise, sweats, weakness, others EENTM: denies: blurred vision, double vision, ear bleeding, ear discharge, ear drainage, ear pain, ear ringing, eye pain, eye redness, hearing loss, mouth pain, mouth swelling, nasal discharge, nose bleeding, nose congestion, nose pain, photophobia, tearing, throat pain, throat swelling, voice changes, others Respiratory: denies: cough, hemoptysis, orthopnea, SOB at rest, shortness of breath, SOB with excertion, stridor, wheezing, others Cardiovascular: reports: chest pain; denies: dizzy spells, diaphoresis, Dyspnea on exertion, edema, irregular heart beat, left arm pain, lightheadedness, palpitations, PND, syncope, others Gastrointestinal: denies: abdomen distended, abdominal pain, blood streaked bowels, constipated, diarrhea, dysphagia, difficulty swallowing, hematemesis, melena, nausea, poor appetite, poor fluid intake, rectal bleeding, rectal pain, vomiting, others Genitourinary: denies: abnormal vagina bleeding, burning, dyspareunia, dysuria, flank pain, frequency, hematuria, incontinence, pain, , vagina discharge, urgency, others Neurological: reports: dizziness, tremors; denies: fainting, headache, left sided numbness, left sided weakness, numbness, paresthesia, pre-existing deficit, right sided numbness, right sided weakness, seizure, speech problems, tingling, weakness, others Musculoskeletal: denies: back pain, gout, joint pain, joint swelling, muscle pain, muscle stiffness, neck pain, others Integumetry: denies: bruises, change in color, change in hair/nails, dryness, laceration, lesions, lumps, rash, wounds, others Allergic/Immunocompromised: denies: Difficulty Healing, Frequent Infections, Hives, Itching, others Hematologic/Lymphatic: denies: anemia, blood clots, easy bleeding, easy bruising, swollen glands, others Endocrine: denies: excessive hunger, excessive sweating, excessive thirst, excessive urination, flushing, intolerance to cold, intolerance to heat, unexplained weight gain, unexplained weight loss, others Psychiatric: reports: anxiety; denies: bipolar disorder, depression, hopeless, panic disorder, schizophrenia, sleepless, suicidal, others All Other Systems: Reviewed and Negative Physical Exam General Appearance: Mild Distress HEENT: Normal ENT Inspection, Pharynx Normal, TMs Normal Neck: Full Range of Motion, Non-Tender, Normal, Normal Inspection Respiratory: Chest Non-Tender, Lungs Clear, No Accessory Muscle Use, No Respiratory Distress, Normal Breath Sounds Cardiovascular: No Edema, No JVD, No Murmur, No Gallop, Normal Peripheral Pulses, Regular Rate/Rhythm Breast Exam: Deferred Gastrointestinal: No Organomegaly, Non Tender, No Pulsatile Mass, Normal Bowel Sounds, Soft Genitalia: Deferred Pelvic: Deferred Rectal: Deferred Extremities: No calf tenderness, Normal capillary refill, Normal inspection, Normal range of motion, Non-tender, No pedal edema Musculoskeletal : Apperance: Normal Neurologic: Alert, launderette attendant II-XII nml as Tested, No Motor Deficits, Normal Affect, Normal Mood, No Sensory Deficits Cerebellar Function: Normal Reflexes: Normal Skin: Diaphoresis, Normal Color, Warm Lymphatic: No Adenopathy EKG EKG : Pulse Rate (adult): 90 Cardiac Rhythm: NSR Was a procedure done? Was a procedure done?: No Psych Differential Dx Intoxication Differential Dx: Alcohol Withdraw Syndrome, Delerium Tremens, Dehydration, Electrolyte Imbalance, Intoxication, Substance Abuse Disorder, Thiamine Deficiency X-Ray, Labs, Meds, VS Vital Signs Date Time Temp Pulse Resp B/P (MAP) Pulse Ox O2 Delivery O2 Flow Rate FiO2 02/04/25 20:10 76 24 120/76 (91) 99 02/04/25 20:10 76 18 99 Room Air 02/04/25 19:25 90 02/04/25 19:22 90 02/04/25 19:22 90 02/04/25 19:03 98.4 113 18 119/85 (96) 100 98.4 Lab Test 02/04/25 19:37 Range/Units White Blood Count 7.9 4.4-10.8 10^3/uL Red Blood Count 3.81 L 4.0-5.20 10^6/uL Hemoglobin 13.2 12.2-16.2 g/dL Hematocrit 38.1 36.0-46.0 % Mean Corpuscular Volume 100.0 80.0-100.0 fL Mean Corpuscular Hemoglobin 34.6 H 28.0-32.0 pg Mean Corpuscular Hemoglobin Concent 34.6 32.0-36.0 g/dL Red Cell Distribution Width 14.2 11.8-14.3 % Platelet Count 215 140-450 10^3/uL Mean Platelet Volume 8.0 6.9-10.8 fL Neutrophils (%) (Auto) 84.1 H 37.0-80.0 % Lymphocytes (%) (Auto) 10.5 10.0-50.0 % Monocytes (%) (Auto) 4.8 0.0-12.0 % Eosinophils (%) (Auto) 0.3 0.0-7.0 % Basophils (%) (Auto) 0.3 0.0-2.0 % Neutrophils # (Auto) 6.6 1.6-8.6 10 ^3/uL Lymphocytes # (Auto) 0.8 0.4-5.4 10 ^3/uL Monocytes # (Auto) 0.4 0-1.3 10 ^3/uL Eosinophils # (Auto) 0 0-0.8 10 ^3/uL Basophils # (Auto) 0 0-0.2 10 ^3/uL Nucleated Red Blood Cells 0.0 % Sodium Level 138 136-145 mmol/L Potassium Level 3.6 3.5-5.1 mmol/L Chloride Level 100 98-107 mmol/L Carbon Dioxide Level 27 20-31 mmol/L Anion Gap 11 5-15 Blood Urea Nitrogen 5 L 9-23 mg/dL Creatinine 0.50 L 0.550-1.02 mg/dL Glomerular Filtration Rate Calc 133 >90 mL/min BUN/Creatinine Ratio 10.0 10.0-20.0 Serum Glucose 99 74-106 mg/dL Calcium Level 10.2 8.7-10.4 mg/dL Plasma/Serum Blood Alcohol < 3.0 <10 mg/dL Current Medications Medications (Trade) Dose Ordered Sig/Daniela Route Start Time Stop Time Status Last Admin Sodium Chloride 1,000 ml @ 1,000 mls/hr Q1H ONCE IV 02/04/25 19:30 02/04/25 20:29 DC 02/04/25 20:34 Lorazepam (Ativan Inj) 1 mg ONCE ONCE IV 02/04/25 19:30 02/04/25 19:31 DC 02/04/25 20:34 Ondansetron HCl (Zofran) 4 mg ONCE ONCE IV 02/04/25 19:30 02/04/25 19:31 DC 02/04/25 20:34 IV Hep-Lock was established The patient was given a 1 L bolus of normal saline The patient was given Ativan 1 mg IV push The patient was given Zofran 4 mg IV push for the nausea The CBC and chemistry panel are within normal limits At this time, the patient will be discharged on Librium and Zofran The patient understands and agrees with the management Images Reviewed?: Images reviewed and evaluated by me Time of 1ST Reevaluation: 20:22 Reevaluation 1ST: Unchanged Patient Education/Counseling: Diagnosis, Treatment, Prognosis, Need For Follow Up Family Education/Counseling: No Family Present Departure 1 Departure Time of Disposition: 21:35 Impression: Primary Impression: Alcohol withdrawal Qualified Codes: F10.930 - Alcohol use, unspecified with withdrawal, u ncomplicated Disposition: 01 HOME / SELF CARE / HOMELESS Condition: Fair e-Prescriptions Chlordiazepoxide Hcl (Ni-1) (I (Librium) 10 Mg Cap 10 MG PO BID for 7 Days, #14 CAP Prov: GISELLA DA SILVA MD 02/04/25 Ondansetron Odt 4MG Tab (ZOFRAN PO) 4 Mg Tb 4 MG PO Q8HP PRN for 7 Days, #21 TAB ODT TAB-DISSOLVE IN MOUTH, THEN SWALLOW Prov: GISELLA DA SILVA MD 02/04/25 Discharged With: Self Critical Care Note Critical Care Time?: No Stability Stability form required: No Heart Score Heart Score: Heart Score Response (Comments) Value History Slightly Suspicious 0 EKG Normal 0 Age <45 0 Risk Factors No known risk factors 0 Troponin Normal limit 0 Total 0 I personally scribed for GISELLA DA SILVA MD ([email or web address]) on 02/04/25 at 19:25. Electronically submitted by Wendy Whitney ([facility]). GISELLA DA SILVA MD Feb 04, 2025 19:25
[2025-02-04 19:45] LABS: Basophils # (auto) 0 10 ^3/uL (0-0.2); Eosinophils # (auto) 0 10 ^3/uL (0-0.8); Eosinophils % (auto) 0.3 % (0.0-7.0); Lymphocytes # (auto) 0.8 10 ^3/uL (0.4-5.4); Monocytes # (auto) 0.4 10 ^3/uL (0-1.3)
[2025-02-04 19:47] LABS: Basophils % (auto) 0.3 % (0.0-2.0); Hematocrit 38.1 % (36.0-46.0); Hemoglobin 13.2 g/dL (12.2-16.2); Lymphocytes % (auto) 10.5 % (10.0-50.0); Mean Corpuscular Hemoglobin 34.6 pg (28.0-32.0); Mean Corpuscular Hgb Conc. 34.6 g/dL (32.0-36.0); Monocytes % (auto) 4.8 % (0.0-12.0); Neutrophils # (auto) 6.6 10 ^3/uL (1.6-8.6); Neutrophils % (auto) 84.1 % (37.0-80.0); Platelet Count (auto) 215 10^3/uL (140-450); Red Blood Cells 3.81 10^6/uL (4.0-5.20); Red Cell Distribution Width 14.2 % (11.8-14.3); White Blood Cell 7.9 10^3/uL (4.4-10.8)
[2025-02-04 19:54] LABS: Anion Gap 11 (5-15); Carbon Dioxide 27 mmol/L (20-31); Chloride 100 mmol/L (98-107); Potassium 3.6 mmol/L (3.5-5.1); Sodium 138 mmol/L (136-145)
[2025-02-04 19:55] LABS: Calcium 10.2 mg/dL (8.7-10.4)
[2025-02-04 20:00] LABS: Glucose 99 mg/dL (74-106)
[2025-02-04 20:02] LABS: Blood Alcohol < 3.0 mg/dL (<10); Blood Urea Nitrogen 5 mg/dL (9-23)
[2025-02-04 20:10] VITALS: BP 120/76; PULSE 76; RESP 18; O2SAT 99
[2025-02-04] MEDS: ONDANSETRON HCL 4 MG/2 ML VIAL IV ONE (20:34)
[2025-02-04] MEDS: LORazepam 2MG/ML-1ML VIAL IV ONE (20:34)
[2025-02-04] MEDS: SODIUM CHLORIDE 0.9% 1,000 ML IV ONE (20:34)
[2025-02-04] MEDS ORDERED: ZOFR4T PO (21:31)
[2025-02-04] MEDS ORDERED: CHL10C PO (21:31)
[2025-02-04 22:25] LABS: Urine Bacteria FEW /hpf (None Seen); Urine Blood Negative /uL (Negative); Urine Clarity Turbid (Clear); Urine Color Light-Orange (Yellow); Urine Mucus FEW (None Seen); Urine Protein, UAD Negative (Negative); Urine Specific Gravity 1.023 (1.001-1.035); Urine Squamous Epithelial Cell FEW /hpf (<5); Urine Urobilinogen Normal (Negative); Urine WBC 1 /HPF (0-5)
[2025-02-04 22:36] LABS: Benzodiazephine Screen, Urine Pos (NEGATIVE)
[2025-02-04 22:37] LABS: Cannabinoid Screen, Urine Pos (NEGATIVE)
[2025-02-04 22:40] LABS: Amphetamine Screen, Urine Neg (NEGATIVE); Barbiturate Scree,Urine Neg (NEGATIVE); Cocaine Screen, Urine Neg (NEGATIVE); Opiate Scree,Urine Neg (NEGATIVE); Phencyclidine Screen, Urine Neg (NEGATIVE)
--- NOTE | 2025-02-05 14:40 | ECG ---
[facility] Test Date: 2025-02-04 Test Time: 19:22:17 Pat Name: DAYANA RIGGS Department: ER Room: Gender: F Lipcoat Sprayer: LUCIANA : 2000 Requested By: GISELLA DA SILVA Order Number: [id number] Reading MD: Sergei Arreola Measurements Intervals [place] Rate: 90 P: 64 DE: 119 QRS: 72 QRSD: 99 T: 57 QT: 377 QTc: 462 Interpretive Statements Sinus rhythm Borderline short DE interval Electronically Signed On 02-06-2025 17:32:17 PDT by Sergei Arreola Please click the below link to view image of tracing.
== END 2025-02-04 22:41 | disposition home or self-care (01) ==
LOC: ER 19:03
DX: F10.139 Alcohol abuse with withdrawal, unspecified (principal); F17.210 Nicotine dependence, cigarettes, uncomplicated; F12.90 Cannabis use, unspecified, uncomplicated; Y90.0 Blood alcohol level of less than 20 mg/100 ml
CPT/HCPCS: 36415; 80048; 80307; 80320; 81001; 81025; 85025; 93005; 96374; 96375; 99284; J2060; J2405; J7030

== ENCOUNTER 2025-02-13 13:34 | Emergency (ER) | payer MEDICAID ==
[~2025-02-13] VITALS: Ht 160 cm; Wt 47.6 kg
[~2025-02-13 13:34] MED LIST changes: +CHL10C PO; +ZOFR4T PO
[2025-02-13] MEDS: cefTRIAXone SOD 1,000 MG VL IM ONE (15:41)
--- NOTE | 2025-02-13 15:46 | ED.PDOC ---
History of Present Illness HPI Comments 24-year-old female presents with a chief complaint of bilateral ear pain x onset Wednesday. Patient states that she had an ear lavage done by her primary care provider and was referred to the ER. Patient has already been prescribed Amoxicillin and Ibuprofen for her inner ear infection. Patient is requesting an IV for fluids. Denies blunt trauma (hand blow to the ear, fall, direct hit) Denies penetrating trauma (Q-tip use, match-stick, gunshot wound, welding spark) Denies ear trauma Denies barotrauma Denies blast injury Denies air travel Denies scuba diving Denies hearing loss Denies persistent ringing in the ear Denies fever chills night sweats unintentional weight loss Denies nausea vomiting severe headache or recent vision changes Chief Complaint: Earache Time Seen by MD: 15:26 Primary Care Provider: SHARMIN Kang Notes: Medications, Allergies Allergies: Coded Allergies: NO KNOWN ALLERGIES (Unverified , 03/21/24) Home Meds Active Scripts Chlordiazepoxide Hcl (Ni-1) (I (Librium) 10 Mg Cap, 10 MG PO DAILY for 3 Days, #3 CAP Prov:LALITA GARCIA MD 02/14/25 Ibuprofen (Ibuprofen) 600 Mg Tab, 1 TAB PO TID for 10 Days, #30 TAB 0 Refills Prov:NEGRO ROSSI NP 02/13/25 Ciprofloxacin Hcl (Cipro) 500 Mg Tab, 1 TAB PO BID for 7 Days, #14 TAB 0 Refills Prov:NEGRO ROSSI NP 02/13/25 Amoxicillin & Pot Clavulanate (AUGMENTIN TABLET) 875 Mg Tb, 875 MG PO BID for 5 Days, #10 TAB 0 Refills Prov:NEGRO ROSSI NP 02/13/25 Chlordiazepoxide Hcl (Ni-1) (I (Librium) 10 Mg Cap, 10 MG PO BID for 7 Days, #14 CAP Prov:GISELLA DA SILVA MD 02/04/25 Ondansetron Odt 4MG Tab (ZOFRAN PO) 4 Mg Tb, 4 MG PO Q8HP PRN for 7 Days, #21 TAB ODT TAB-DISSOLVE IN MOUTH, THEN SWALLOW Prov:GISELLA DA SILVA MD 02/04/25 Thiamine Hcl (VITAMIN B-1) 100 Mg Tb, 100 MG PO DAILY for 30 Days, #30 TAB Prov:FABIANO MURDOCK RESIDENT 03/22/24 Folic Acid (Folic Acid) 1 Mg Tab, 1 MG PO DAILY for 30 Days, #30 TAB Prov:FABIANO MURDOCK RESIDENT 03/22/24 Information Source: Patient Mode of Arrival: Ambulatory Severity: Moderate Timing: Days Duration: Since onset Prehospital treatment: None Past Medical History PAST MEDICAL HISTORY: Denies Surgical History: Denies all surgeries MAILER History: No Pertinent MAILER History Family History Family History: Unknown Social History Smoker: Cigarettes Alcohol: Heavy Drugs: Marijuana Lives In: Home All Other Systems: Reviewed and Negative ( PER HPI) Physical Exam General Appearance: No Apparent Distress, Normal HEENT: Normal ENT Inspection, Pharynx Normal, TMs Normal, Other (NO MASTOIDITIS, NO HEMOTYPAN, NARES PATENT, NO CREPITIUS) Neck: Full Range of Motion, Non-Tender, Normal, Normal Inspection Respiratory: Chest Non-Tender, Lungs Clear, No Accessory Muscle Use, No Respiratory Distress, Normal Breath Sounds Cardiovascular: No Edema, No JVD, No Murmur, No Gallop, Normal Peripheral Pulses, Regular Rate/Rhythm Breast Exam: Deferred Gastrointestinal: No Organomegaly, Non Tender, No Pulsatile Mass, Normal Bowel Sounds, Soft Genitalia: Deferred Pelvic: Deferred Rectal: Deferred Extremities: No calf tenderness, Normal capillary refill, Normal inspection, Normal range of motion, Non-tender, No pedal edema Musculoskeletal : Apperance: Normal Neurologic: Alert, career services assistant II-XII nml as Tested, No Motor Deficits, Normal Affect, Normal Mood, No Sensory Deficits Cerebellar Function: Normal Reflexes: Normal Skin: Dry, Normal Color, Warm Lymphatic: No Adenopathy Was a procedure done? Was a procedure done?: No Differential Dx Considerations may include: Acute otitis media, acute otitis externa, foreign body, barotrauma X-Ray, Labs, Meds, VS Vital Signs Date Time Temp Pulse Resp B/P (MAP) Pulse Ox O2 Delivery O2 Flow Rate FiO2 02/13/25 15:47 88 16 96 Room Air 02/13/25 15:47 98.3 87 16 127/92 (104) 96 98.3 02/13/25 13:40 98.2 91 17 130/99 (109) 97 98.2 Current Medications Medications (Trade) Dose Ordered Sig/Daniela Route Start Time Stop Time Status Last Admin Ceftriaxone Sodium (Rocephin) 1,000 mg ONCE ONCE IM 02/13/25 15:45 02/13/25 15:46 DC 02/13/25 15:41 X-Ray, Labs, Meds, VS Comment 24-year-old female presents with a chief complaint of bilateral ear pain x onset Wednesday. Patient arrives alert and oriented, ABC's intact, afebrile, vital signs stable, saturating well in room air Patient is seen by urgent care Differentials considered but not limited to bullous myringitis, eustachian tube dysfunction, cholesteatoma, mastoiditis, meningitis. Exam and history are most consistent with Acute Otitis Media. No diabetes, immunosuppression. Rx: Prescribed Augmentin and Cipro to cover for any minor mastoiditis. Advised to stop taking amoxicillin. Start medications that were prescribed today Prescribed p.o. antibiotics for presentation of symptoms Complete course of antibiotic therapy even if symptoms improve or resolve. There should be no leftover antibiotics as this can lead to antibiotic resistant bacteria and even worse infection. Patient verbalized understanding. Potential side effects discussed with patient including abdominal pain, nausea, diarrhea. Patient is stable for discharge at this time. External notes reviewed. Test results and diagnostic imaging interpreted. All diagnostic findings, discharge care, education and instructions provided Follow-up with PCP in 2 to 3 days Patient verbalized understanding and agreed to treatment plan Vital signs stable, afebrile, no acute distress noted Patient ambulatory with strong steady gait Advised to return precautions for any new or worsening symptoms, return to ER immediately for re-evaluation Patient is aware that the purpose of this visit was for an acute medical emergency requiring emergent stabilization. Chronic conditions, including malignancies have not been ruled out. Patient is instructed to follow up with PCP as directed and discharge instructions for continued care and workup. If unable to arrange follow-up, patient is to return to the emergency department for reassessment. Patient (parent or legal guardian if applicable) was given verbal and written discharge instructions and acknowledges understanding. Additional MDM Review of External, Non-ED records: External records reviewed. Discussion with independent historian (EMS, family) history obtained from the patient/parents (if applicable) at bedside Chronic conditions affecting care: None Social determinants of health affecting care: None Consideration of admission (observation or admission): I considered escalation of care to admission for this patient, however given the reassuring workup, the patient is safe for outpatient management. Discussion with the Radiology: No Tests considered but not performed: Prescription medication considered but not given: Time of 1ST Reevaluation: 15:56 Reevaluation 1ST: Improved Patient Education/Counseling: Diagnosis, Treatment, Prognosis Family Education/Counseling: No Family Present SEPSIS Sepsis Screen Date sepsis recognized/suspect: Feb 13, 2025 Time Sepsis recognized/suspect: 1340 Recent Procedure: No On Antibiotic Therapy: No Respiratory Rate >20: No Heart Rate >90: Yes Temp<36 C (96.8 F) or >38.3 C: No SBP <90 or MAP <65 mmHG: No New Acute Mental Status Change: No Is the patient on CPAP, BIPAP,: No Vital Signs Date Time Temp Pulse Resp B/P (MAP) Pulse Ox O2 Delivery O2 Flow Rate FiO2 02/13/25 15:47 88 16 96 Room Air 02/13/25 15:47 98.3 87 16 127/92 (104) 96 98.3 02/13/25 13:40 98.2 91 17 130/99 (109) 97 98.2 Departure 1 Departure Time of Disposition: 15:49 Impression: Primary Impression: AOM (acute otitis media) Qualified Codes: H66.001 - Acute suppurative otitis media without spontaneous rupture of ear drum, right ear Disposition: 01 HOME / SELF CARE / HOMELESS Condition: Stable Additional Instructions: Discharge Note: Continue on your medications. Drink plenty of fluids. Follow up with your primary Dr. Take your prescriptions as ordered. If your condition becomes worse call and follow up with your primary Dr. for instructions or return to the ER if needed. Keep EARS clean and dry. Thank you for visiting [facility]. e-Prescriptions Ibuprofen (Ibuprofen) 600 Mg Tab 1 TAB PO TID for 10 Days, #30 TAB 0 Refills Prov: NEGRO ROSSI CORE FILER 02/13/25 Ciprofloxacin Hcl (Cipro) 500 Mg Tab 1 TAB PO BID for 7 Days, #14 TAB 0 Refills Prov: NEGRO ROSSI CORE FILER 02/13/25 Amoxicillin & Pot Clavulanate (AUGMENTIN TABLET) 875 Mg Tb 875 MG PO BID for 5 Days, #10 TAB 0 Refills Prov: NEGRO ROSSI CORE FILER 02/13/25 Critical Care Note Critical Care Time?: No Stability Stability form required: No Heart Score Heart Score: Heart Score Response (Comments) Value History N/A 0 EKG N/A 0 Age N/A 0 Risk Factors N/A 0 Troponin N/A 0 Total 0 I personally scribed for NEGRO ROSSI NP ([email or web address]) on 02/13/25 at 15:46. Electronically submitted by Kelechi Wang ([email or web address]). NEGRO ROSSI NP Feb 13, 2025 15:46
[2025-02-13 15:47] VITALS: BP 127/92; PULSE 88; RESP 16; TEMP 98.3; O2SAT 96
[2025-02-13] MEDS ORDERED: IBUP-1454 PO (15:50)
[2025-02-13] MEDS ORDERED: AUG875T PO (15:50)
[2025-02-13] MEDS ORDERED: CIPR-173 PO (15:50)
[2025-02-14] MEDS ORDERED: CHL10C PO (08:10)
== END 2025-02-13 16:00 | disposition home or self-care (01) ==
LOC: ER 13:34
DX: H66.93 Otitis media, unspecified, bilateral (principal); F17.210 Nicotine dependence, cigarettes, uncomplicated; F12.90 Cannabis use, unspecified, uncomplicated; F10.20 Alcohol dependence, uncomplicated; Z79.899 Other long term (current) drug therapy; Y90.9 Presence of alcohol in blood, level not specified
CPT/HCPCS: 96372; 99283; J0696

== ENCOUNTER 2025-02-14 06:18 | Emergency (ER) | payer MEDICAID ==
[~2025-02-14] VITALS: Ht 160 cm; Wt 47.4 kg
[~2025-02-14 06:18] MED LIST changes: +AUG875T PO; +CIPR-173 PO; +IBUP-1454 PO
--- NOTE | 2025-02-14 07:12 | ED.PDOC ---
History of Present Illness HPI Comments 24 y/o F, presents to the ED for CC of alcohol withdrawals. Patient states, that she has been experiencing alcohol withdrawal symptoms including tremors and nausea/vomiting onset, x3days. Patient relays, that she drinks approximately x2- 3 cups of wine daily however, has been unable to d/t being prescribed a ntibiotics for a recent ear infection. Patient endorses, last drink to be 1600 yesterday (02/13/25). Patient denies suicidal ideation, homicidal ideation, auditory hallucinations, or visual hallucinations. No other symptoms or modfiying factors present at this time. Chief Complaint: Withdrawal Time Seen by MD: 06:50 Primary Care Provider: SHARMIN Kang Notes: Nurses Notes, Medications, Allergies Allergies: Coded Allergies: NO KNOWN ALLERGIES (Unverified , 03/21/24) Home Meds Active Scripts Ibuprofen (Ibuprofen) 600 Mg Tab, 1 TAB PO TID for 10 Days, #30 TAB 0 Refills Prov:NEGRO ROSSI NP 02/13/25 Ciprofloxacin Hcl (Cipro) 500 Mg Tab, 1 TAB PO BID for 7 Days, #14 TAB 0 Refills Prov:NEGRO ROSSI NP 02/13/25 Amoxicillin & Pot Clavulanate (AUGMENTIN TABLET) 875 Mg Tb, 875 MG PO BID for 5 Days, #10 TAB 0 Refills Prov:NEGRO ROSSI NP 02/13/25 Chlordiazepoxide Hcl (Ni-1) (I (Librium) 10 Mg Cap, 10 MG PO BID for 7 Days, #14 CAP Prov:GISELLA DA SILVA MD 02/04/25 Ondansetron Odt 4MG Tab (ZOFRAN PO) 4 Mg Tb, 4 MG PO Q8HP PRN for 7 Days, #21 TAB ODT TAB-DISSOLVE IN MOUTH, THEN SWALLOW Prov:GISELLA DA SILVA MD 02/04/25 Thiamine Hcl (VITAMIN B-1) 100 Mg Tb, 100 MG PO DAILY for 30 Days, #30 TAB Prov:FABIANO MURDOCK RESIDENT 03/22/24 Folic Acid (Folic Acid) 1 Mg Tab, 1 MG PO DAILY for 30 Days, #30 TAB Prov:FABIANO MURDOCK RESIDENT 03/22/24 Information Source: Patient Mode of Arrival: Ambulatory Severity: Moderate Timing: Days Duration: Since onset Prehospital treatment: None Past Medical History PAST MEDICAL HISTORY: Denies Surgical History: Denies all surgeries STRUCTURES TECHNICIAN History: No Pertinent STRUCTURES TECHNICIAN History Family History Family History: Unknown Social History Smoker: Cigarettes Alcohol: Heavy Drugs: Marijuana Lives In: Home Constitutional: denies: chills, diaphoresis, fatigue, fever, malaise, sweats, weakness, others EENTM: denies: blurred vision, double vision, ear bleeding, ear discharge, ear drainage, ear pain, ear ringing, eye pain, eye redness, hearing loss, mouth pain, mouth swelling, nasal discharge, nose bleeding, nose congestion, nose pain, photophobia, tearing, throat pain, throat swelling, voice changes, others Respiratory: denies: cough, hemoptysis, orthopnea, SOB at rest, shortness of breath, SOB with excertion, stridor, wheezing, others Cardiovascular: denies: chest pain, dizzy spells, diaphoresis, Dyspnea on exertion, edema, irregular heart beat, left arm pain, lightheadedness, palpitations, PND, syncope, others Gastrointestinal: denies: abdomen distended, abdominal pain, blood streaked bowels, constipated, diarrhea, dysphagia, difficulty swallowing, hematemesis, melena, nausea, poor appetite, poor fluid intake, rectal bleeding, rectal pain, vomiting, others Genitourinary: denies: abnormal vagina bleeding, burning, dyspareunia, dysuria, flank pain, frequency, hematuria, incontinence, pain, , vagina discharge, urgency, others Neurological: reports: tremors; denies: dizziness, fainting, headache, left sided numbness, left sided weakness, numbness, paresthesia, pre-existing deficit, right sided numbness, right sided weakness, seizure, speech problems, tingling, weakness, others Musculoskeletal: denies: back pain, gout, joint pain, joint swelling, muscle pain, muscle stiffness, neck pain, others Integumetry: denies: bruises, change in color, change in hair/nails, dryness, laceration, lesions, lumps, rash, wounds, others Allergic/Immunocompromised: denies: Difficulty Healing, Frequent Infections, Hives, Itching, others Hematologic/Lymphatic: denies: anemia, blood clots, easy bleeding, easy bruising, swollen glands, others Endocrine: denies: excessive hunger, excessive sweating, excessive thirst, excessive urination, flushing, intolerance to cold, intolerance to heat, unexplained weight gain, unexplained weight loss, others Psychiatric: denies: anxiety, bipolar disorder, depression, hopeless, panic disorder, schizophrenia, sleepless, suicidal, others All Other Systems: Reviewed and Negative Physical Exam General Appearance: Moderate Distress HEENT: Normal ENT Inspection, Pharynx Normal, TMs Normal Neck: Full Range of Motion, Non-Tender, Normal, Normal Inspection Respiratory: Chest Non-Tender, Lungs Clear, No Accessory Muscle Use, No Respiratory Distress, Normal Breath Sounds Cardiovascular: No Edema, No JVD, No Murmur, No Gallop, Normal Peripheral Pulses, Regular Rate/Rhythm Breast Exam: Deferred Gastrointestinal: No Organomegaly, Non Tender, No Pulsatile Mass, Normal Bowel Sounds, Soft Genitalia: Deferred Pelvic: Deferred Rectal: Deferred Extremities: No calf tenderness, Normal capillary refill, Normal inspection, Normal range of motion, Non-tender, No pedal edema Musculoskeletal : Apperance: Normal Neurologic: Alert, window clerk II-XII nml as Tested, No Motor Deficits, Normal Affect, Normal Mood, No Sensory Deficits Cerebellar Function: Normal Reflexes: Normal Skin: Dry, Normal Color, Warm Peripheral Pulses: 3+ Radial (R), 3+ Radial (L) Lymphatic: No Adenopathy Was a procedure done? Was a procedure done?: No EKG EKG : Pulse Rate (adult): 83 [place]: Normal Cardiac Rhythm: NSR Block: None Hypertrophy: None ST: Normal Differential Dx Considerations may include: ETOH INTOXICATION, ETOH WITHDRAWALS X-Ray, Labs, Meds, VS Vital Signs Date Time Temp Pulse Resp B/P (MAP) Pulse Ox O2 Delivery O2 Flow Rate FiO2 02/14/25 07:51 99.5 77 22 110/76 (87) 96 99.5 02/14/25 07:12 83 02/14/25 06:43 83 02/14/25 06:41 98.3 101 22 145/94 (111) 100 98.3 Current Medications Medications (Trade) Dose Ordered Sig/Daniela Route Start Time Stop Time Status Last Admin Lorazepam (Ativan Inj) 1 mg ONCE ONCE IV 02/14/25 07:15 02/14/25 07:16 DC 02/14/25 07:54 Patient alert. She is shaking. Alcohol abuse. Vitals stable. Establish intravenous access. Was given fluids. Was given Ativan. Counseled patient on effects of drinking for 15 minutes pain Was told to join AA. Reviewed her previous visit. She was here recently for antibiotics for possible urine infection. Was given prescription of Librium. Was told to follow up with her primary care physician. Was told to come back if there is any problem. Time of 1ST Reevaluation: 07:20 Reevaluation 1ST: Unchanged Patient Education/Counseling: Diagnosis, Treatment Family Education/Counseling: No Family Present SEPSIS Sepsis Screen Date sepsis recognized/suspect: Feb 14, 2025 Time Sepsis recognized/suspect: 623 Recent Procedure: No On Antibiotic Therapy: No Respiratory Rate >20: No Heart Rate >90: No Temp<36 C (96.8 F) or >38.3 C: No SBP <90 or MAP <65 mmHG: No New Acute Mental Status Change: No Is the patient on CPAP, BIPAP,: No Physician Orders Urinalysis (02/14/25 06:31) Sodium Chloride 0.9% (02/14/25 07:15) Sodium Chloride 0.9% (02/14/25 07:15) Electrocardigram (02/14/25 07:04) Vital Signs Date Time Temp Pulse Resp B/P (MAP) Pulse Ox O2 Delivery O2 Flow Rate FiO2 02/14/25 07:51 99.5 77 22 110/76 (87) 96 99.5 02/14/25 07:12 83 02/14/25 06:43 83 02/14/25 06:41 98.3 101 22 145/94 (111) 100 98.3 Medications Medications Dose Ordered Sig/Daniela Route Start Time Stop Time Status Last Admin Dose Admin Lorazepam 1 mg ONCE ONCE IV 02/14/25 07:15 02/14/25 07:16 DC 02/14/25 07:54 Departure 1 Departure Time of Disposition: 08:10 Impression: Primary Impression: Alcohol withdrawal Qualified Codes: F10.930 - Alcohol use, unspecified with withdrawal, unco mplicated Disposition: 01 HOME / SELF CARE / HOMELESS Condition: Good e-Prescriptions Chlordiazepoxide Hcl (Ni-1) (I (Librium) 10 Mg Cap 10 MG PO DAILY for 3 Days, #3 CAP Prov: LALITA GARCIA MD 02/14/25 Discharged With: Self Critical Care Note Critical Care Time?: No Stability Stability form required: No Heart Score Heart Score: Heart Score Response (Comments) Value History N/A 0 EKG N/A 0 Age N/A 0 Risk Factors N/A 0 Troponin N/A 0 Total 0 I personally scribed for LALITA GARCIA MD ([email or web address]) on 02/14/25 at 07:12. Electronically submitted by Carol Desouza ([email or web address]). LALITA GARCIA MD Feb 14, 2025 07:12
[2025-02-14 07:50] VITALS: PULSE 76; RESP 22; O2SAT 96
[2025-02-14] MEDS: LORazepam 2MG/ML-1ML VIAL IV ONE (07:54)
[2025-02-14] MEDS: SODIUM CHLORIDE 0.9% 1,000 ML IV ONE ×2 (08:00)
[2025-02-14] MEDS ORDERED: CHL10C PO (08:10)
[2025-02-14 09:31] LABS: Urine Bacteria FEW /hpf (None Seen); Urine Blood Negative /uL (Negative); Urine Clarity Turbid (Clear); Urine Color Light-Orange (Yellow); Urine Mucus FEW (None Seen); Urine Protein, UAD 1+ (Negative); Urine Specific Gravity 1.026 (1.001-1.035); Urine Squamous Epithelial Cell MOD /hpf (<5); Urine Urobilinogen Normal (Negative); Urine WBC 4 /HPF (0-5)
[2025-02-14 09:49] VITALS: BP 114/87; PULSE 54; RESP 16; TEMP 98.2; O2SAT 97
--- NOTE | 2025-02-14 14:25 | ECG ---
[facility] Test Date: 2025-02-14 Test Time: 06:43:38 Pat Name: DAYANA RIGGS Department: ER Room: Gender: F Interventional Nurse: HOPE : 2000 Requested By: LALITA GARCIA Order Number: [id number] Reading MD: Sergei Arreola Measurements Intervals [place] Rate: 83 P: 60 UT: 130 QRS: 80 QRSD: 106 T: 64 QT: 406 QTc: 477 Interpretive Statements Sinus rhythm Borderline prolonged QT interval Electronically Signed On 02-17-2025 19:56:59 PDT by Sergei Arreola Please click the below link to view image of tracing.
== END 2025-02-14 09:58 | disposition home or self-care (01) ==
LOC: ER 06:18
DX: F10.930 Alcohol use, unspecified with withdrawal, uncomplicated (principal); F17.210 Nicotine dependence, cigarettes, uncomplicated; Z79.899 Other long term (current) drug therapy; Y90.9 Presence of alcohol in blood, level not specified
CPT/HCPCS: 81001; 93005; 96361; 96374; 99284; J2060; J7030

== ENCOUNTER 2025-03-28 12:12 | Emergency (ER) | payer MEDICAID ==
[~2025-03-28] VITALS: Ht 160 cm; Wt 48.6 kg
[2025-03-28] MEDS: SODIUM CHLORIDE 0.9% 1,000 ML IV ONE (13:00)
--- NOTE | 2025-03-28 13:27 | ED.PDOC ---
History of Present Illness HPI Comments This is a 24 year-old female, with a social history of MJ and drinking daily, presents to the ED with a chief complaint of tremors with associated dizziness and N/V as of X1 week. Patient has no further complaints at this time and otherwise denies diarrhea, fever, chills, weakness, fatigue, or abdominal pain. Chief Complaint: Withdrawal Time Seen by MD: 13:19 Primary Care Provider: SHARMIN Kang Notes: Nurses Notes, Medications, Allergies Allergies: Coded Allergies: NO KNOWN ALLERGIES (Unverified , 03/21/24) Home Meds Active Scripts Chlordiazepoxide Hcl (Ni-1) (I (Librium) 10 Mg Cap, 10 MG PO BID for 7 Days, #14 CAP Prov:GISELLA DA SILVA MD 03/28/25 Chlordiazepoxide Hcl (Ni-1) (I (Librium) 10 Mg Cap, 10 MG PO DAILY for 3 Days, #3 CAP Prov:LALITA GARCIA MD 02/14/25 Ibuprofen (Ibuprofen) 600 Mg Tab, 1 TAB PO TID for 10 Days, #30 TAB 0 Refills Prov:NEGRO ROSSI NP 02/13/25 Ciprofloxacin Hcl (Cipro) 500 Mg Tab, 1 TAB PO BID for 7 Days, #14 TAB 0 Refills Prov:NEGRO ROSSI NP 02/13/25 Amoxicillin & Pot Clavulanate (AUGMENTIN TABLET) 875 Mg Tb, 875 MG PO BID for 5 Days, #10 TAB 0 Refills Prov:NEGRO ROSSI NP 02/13/25 Ondansetron Odt 4MG Tab (ZOFRAN PO) 4 Mg Tb, 4 MG PO Q8HP PRN for 7 Days, #21 T AB ODT TAB-DISSOLVE IN MOUTH, THEN SWALLOW Prov:GISELLA DA SILVA MD 02/04/25 Thiamine Hcl (VITAMIN B-1) 100 Mg Tb, 100 MG PO DAILY for 30 Days, #30 TAB Prov:FABIANO MURDOCK RESIDENT 03/22/24 Folic Acid (Folic Acid) 1 Mg Tab, 1 MG PO DAILY for 30 Days, #30 TAB Prov:FABIANO MURDOCK RESIDENT 03/22/24 Information Source: Patient Mode of Arrival: Ambulatory Severity: Moderate Timing: Weeks (1) Duration: Since onset Associated signs and symptoms tremors, dizziness, N/V Past Medical History PAST MEDICAL HISTORY: Denies Surgical History: Denies all surgeries MEDICAL RECORDS RECEPTIONIST History: No Pertinent MEDICAL RECORDS RECEPTIONIST History Family History Family History: Unknown Social History Smoker: Cigarettes Alcohol: Heavy Drugs: Marijuana Lives In: Home Constitutional: denies: chills, diaphoresis, fatigue, fever, malaise, sweats, weakness, others EENTM: denies: blurred vision, double vision, ear bleeding, ear discharge, ear drainage, ear pain, ear ringing, eye pain, eye redness, hearing loss, mouth bharti n, mouth swelling, nasal discharge, nose bleeding, nose congestion, nose pain, photophobia, tearing, throat pain, throat swelling, voice changes, others Respiratory: denies: cough, hemoptysis, orthopnea, SOB at rest, shortness of breath, SOB with excertion, stridor, wheezing, others Cardiovascular: denies: chest pain, dizzy spells, diaphoresis, Dyspnea on exertion, edema, irregular heart beat, left arm pain, lightheadedness, palpitations, PND, syncope, others Gastrointestinal: reports: nausea, vomiting; denies: abdomen distended, abdominal pain, blood streaked bowels, constipated, diarrhea, dysphagia, difficulty swallowing, hematemesis, melena, poor appetite, poor fluid intake, rectal bleeding, rectal pain, others Genitourinary: denies: abnormal vagina bleeding, burning, dyspareunia, dysuria, flank pain, frequency, hematuria, incontinence, pain, , vagina discharge, urgency, others Neurological: reports: dizziness, tremors; denies: fainting, headache, left sided numbness, left sided weakness, numbness, paresthesia, pre-existing deficit, right sided numbness, right sided weakness, seizure, speech problems, tingling, weakness, others Musculoskeletal: denies: back pain, gout, joint pain, joint swelling, muscle pain, muscle stiffness, neck pain, others Integumetry: denies: bruises, change in color, change in hair/nails, dryness, laceration, lesions, lumps, rash, wounds, others Allergic/Immunocompromised: denies: Difficulty Healing, Frequent Infections, Hives, Itching, others Hematologic/Lymphatic: denies: anemia, blood clots, easy bleeding, easy bruising, swollen glands, others Endocrine: denies: excessive hunger, excessive sweating, excessive thirst, excessive urination, flushing, intolerance to cold, intolerance to heat, unexplained weight gain, unexplained weight loss, others Psychiatric: denies: anxiety, bipolar disorder, depression, hopeless, panic disorder, schizophrenia, sleepless, suicidal, others All Other Systems: Reviewed and Negative Physical Exam General Appearance: Moderate Distress, Other (Tremors) HEENT: Normal ENT Inspection, Pharynx Normal, TMs Normal Neck: Full Range of Motion, Non-Tender, Normal, Normal Inspection Respiratory: Chest Non-Tender, Lungs Clear, No Accessory Muscle Use, No Respiratory Distress, Normal Breath Sounds Cardiovascular: No Edema, No JVD, No Murmur, No Gallop, Normal Peripheral Pulses, Regular Rate/Rhythm Breast Exam: Deferred Gastrointestinal: No Organomegaly, Non Tender, No Pulsatile Mass, Normal Bowel Sounds, Soft Genitalia: Deferred Pelvic: Deferred Rectal: Deferred Extremities: No calf tenderness, Normal capillary refill, Normal inspection, Normal range of motion, Non-tender, No pedal edema Musculoskeletal : Apperance: Normal Neurologic: Alert, retort firer II-XII nml as Tested, Motor Weakness, Normal Affect, Normal Mood, No Sensory Deficits Cerebellar Function: Tremor Reflexes: Normal Skin: Dry, Normal Color, Warm Lymphatic: No Adenopathy Was a procedure done? Was a procedure done?: No Differential Dx Considerations may include: Tremors, alcohol withdrawal, alcohol abuse, generalized weakness X-Ray, Labs, Meds, VS Vital Signs Date Time Temp Pulse Resp B/P (MAP) Pulse Ox O2 Delivery O2 Flow Rate FiO2 03/28/25 14:42 75 20 100 Room Air 03/28/25 14:42 98.4 75 20 126/61 (82) 100 98.4 03/28/25 12:35 98.1 90 18 114/75 99 98.1 Lab Test 03/28/25 13:26 03/28/25 12:43 Range/Units White Blood Count 6.7 4.4-10.8 10^3/uL Red Blood Count 3.95 L 4.0-5.20 10^6/uL Hemoglobin 14.1 12.2-16.2 g/dL Hematocrit 39.7 36.0-46.0 % Mean Corpuscular Volume 100.4 H 80.0-100.0 fL Mean Corpuscular Hemoglobin 35.6 H 28.0-32.0 pg Mean Corpuscular Hemoglobin Concent 35.5 32.0-36.0 g/dL Red Cell Distribution Width 14.6 H 11.8-14.3 % Platelet Count 228 140-450 10^3/uL Mean Platelet Volume 8.6 6.9-10.8 fL Neutrophils (%) (Auto) 84.6 H 37.0-80.0 % Lymphocytes (%) (Auto) 9.8 L 10.0-50.0 % Monocytes (%) (Auto) 4.9 0.0-12.0 % Eosinophils (%) (Auto) 0.4 0.0-7.0 % Basophils (%) (Auto) 0.3 0.0-2.0 % Neutrophils # (Auto) 5.7 1.6-8.6 10 ^3/uL Lymphocytes # (Auto) 0.7 0.4-5.4 10 ^3/uL Monocytes # (Auto) 0.3 0-1.3 10 ^3/uL Eosinophils # (Auto) 0 0-0.8 10 ^3/uL Basophils # (Auto) 0 0-0.2 10 ^3/uL Nucleated Red Blood Cells 0.0 % Sodium Level 137 136-145 mmol/L Potassium Level 4.1 3.5-5.1 mmol/L Chloride Level 100 98-107 mmol/L Carbon Dioxide Level 26 20-31 mmol/L Anion Gap 11 5-15 Blood Urea Nitrogen 7 L 9-23 mg/dL Creatinine 0.51 L 0.550-1.02 mg/dL Glomerular Filtration Rate Calc 132 >90 mL/min BUN/Creatinine Ratio 13.7 10.0-20.0 Serum Glucose 106 74-106 mg/dL Calcium Level 9.6 8.7-10.4 mg/dL Plasma/Serum Blood Alcohol 34.0 H <10 mg/dL POC Glucose 120 H 70-106 mg/dl Current Medications Medications (Trade) Dose Ordered Sig/Daniela Route Start Time Stop Time Status Last Admin Sodium Chloride 1,000 ml @ 1,000 mls/hr Q1H ONCE IV 03/28/25 13:00 03/28/25 13:59 DC 03/28/25 13:00 Lorazepam (Ativan Inj) 1 mg ONCE ONCE IV 03/28/25 13:00 03/28/25 13:18 DC 03/28/25 14:42 IV Hep-Lock was established The patient was given a 1 L bolus of normal saline The patient was given Ativan 1 mg IV push The patient's CBC and chemistry panel are within normal limits The patient is being discharged at this time The patient will follow up with the primary care doctor The patient was given a prescription of Librium The patient was given substance abuse counseling. Time of 1ST Reevaluation: 13:58 Reevaluation 1ST: Unchanged Patient Education/Counseling: Diagnosis, Treatment Family Education/Counseling: No Family Present SEPSIS Sepsis Screen Date sepsis recognized/suspect: Mar 28, 2025 Time Sepsis recognized/suspect: 1234 Recent Procedure: No On Antibiotic Therapy: No Respiratory Rate >20: No Heart Rate >90: No Temp<36 C (96.8 F) or >38.3 C: No SBP <90 or MAP <65 mmHG: No New Acute Mental Status Change: No Is the patient on CPAP, BIPAP,: No Physician Orders Heplock Iv (03/28/25 12:56) Drug Screen (03/28/25 12:56) Vital Signs Date Time Temp Pulse Resp B/P (MAP) Pulse Ox O2 Delivery O2 Flow Rate FiO2 03/28/25 14:42 75 20 100 Room Air 03/28/25 14:42 98.4 75 20 126/61 (82) 100 98.4 03/28/25 12:35 98.1 90 18 114/75 99 98.1 Laboratory Tests Test 03/28/25 13:26 White Blood Count 6.7 10^3/uL (4.4-10.8) Medications Medications Dose Ordered Sig/Daniela Route Start Time Stop Time Status Last Admin Dose Admin Lorazepam 1 mg ONCE ONCE IV 03/28/25 13:00 03/28/25 13:18 DC 03/28/25 14:42 Sodium Chloride 1,000 ml @ 1,000 mls/hr Q1H ONCE IV 03/28/25 13:00 03/28/25 13:59 DC 03/28/25 13:00 Departure 1 Departure Time of Disposition: 16:34 Impression: Primary Impression: Alcohol withdrawal Qualified Codes: F10.930 - Alcohol use, unspecified with withdrawal, uncomplicated Disposition: 01 HOME / SELF CARE / HOMELESS Condition: Fair e-Prescriptions Chlordiazepoxide Hcl (Ni-1) (I (Librium) 10 Mg Cap 10 MG PO BID for 7 Days, #14 CAP Prov: GISELLA DA SILVA MD 03/28/25 Discharged With: Self Critical Care Note Critical Care Time?: Yes (35 min-critical care time only) Stability Stability form required: No Heart Score Heart Score: Heart Score Response (Comments) Value History N/A 0 EKG N/A 0 Age N/A 0 Risk Factors N/A 0 Troponin N/A 0 Total 0 I personally scribed for GISELLA DA SILVA MD ([email or web address]) on 03/28/25 at 13:26. Electronically submitted by Evie Blackburn ([facility]). GISELLA DA SILVA MD Mar 28, 2025 13:26
[2025-03-28 13:53] LABS: Hemoglobin 14.1 g/dL (12.2-16.2); Mean Corpuscular Volume 100.4 fL (80.0-100.0); Nucleated Red Blood Cells % 0.0 %
[2025-03-28 13:54] LABS: Anion Gap 11 (5-15); Carbon Dioxide 26 mmol/L (20-31); Chloride 100 mmol/L (98-107); Potassium 4.1 mmol/L (3.5-5.1); Sodium 137 mmol/L (136-145)
[2025-03-28 13:55] LABS: Calcium 9.6 mg/dL (8.7-10.4); Hematocrit 39.7 % (36.0-46.0); Mean Corpuscular Hemoglobin 35.6 pg (28.0-32.0)
[2025-03-28 14:00] LABS: BUN/Creatinine Ratio 13.7 (10.0-20.0); Glucose 106 mg/dL (74-106)
[2025-03-28 14:01] LABS: Blood Urea Nitrogen 7 mg/dL (9-23)
[2025-03-28 14:42] VITALS: BP 126/61; PULSE 75; RESP 20; TEMP 98.4; O2SAT 100
[2025-03-28] MEDS: LORazepam 2MG/ML-1ML VIAL IV ONE (14:42)
== END 2025-03-28 17:01 | disposition home or self-care (01) ==
LOC: ER 12:12
DX: F10.930 Alcohol use, unspecified with withdrawal, uncomplicated (principal); F17.210 Nicotine dependence, cigarettes, uncomplicated; Y90.9 Presence of alcohol in blood, level not specified
CPT/HCPCS: 36415; 80048; 80320; 82947; 85025; 96361; 96374; 99283; J2060; J7030; 82962

== ENCOUNTER 2025-04-09 15:07 | Emergency (ER) | payer MEDICAID ==
[~2025-04-09] VITALS: Ht 160 cm; Wt 50.0 kg
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
[2025-04-09 16:21] LABS: Hematocrit 40.1 % (36.0-46.0); Hemoglobin 14.1 g/dL (12.2-16.2); Mean Corpuscular Hemoglobin 35.0 pg (28.0-32.0); Mean Corpuscular Volume 99.5 fL (80.0-100.0); Nucleated Red Blood Cells % 0.0 %
[2025-04-09] MEDS: LORazepam 0.5 MG TAB PO ONE (16:26)
[2025-04-09] MEDS: SODIUM CHLORIDE 0.9% 1,000 ML IV ONE (16:26)
[2025-04-09 16:29] LABS: Potassium 3.8 mmol/L (3.5-5.1); Sodium 137 mmol/L (136-145)
[2025-04-09 16:30] LABS: Anion Gap 12 (5-15); Calcium 9.8 mg/dL (8.7-10.4); Carbon Dioxide 28 mmol/L (20-31)
[2025-04-09 16:33] LABS: Chloride 97 mmol/L (98-107)
[2025-04-09 16:36] LABS: BUN/Creatinine Ratio 10.0 (10.0-20.0); Blood Urea Nitrogen < 5 mg/dL (9-23); Glucose 111 mg/dL (74-106)
[2025-04-09 18:10] LABS: Urine Protein, UAD 1+ (Negative)
--- NOTE | 2025-04-09 20:45 | DVH ---
CLINICAL INDICATION: Pain TECHNIQUE: 3 radiographic views of the facial bone were obtained. Comparison: None FINDINGS/IMPRESSION: No displaced fractures are noted. There are no air-fluid levels in the maxillary sinuses.
[2025-04-09 21:15] VITALS: BP 123/73; PULSE 83; RESP 16; TEMP 98.6; O2SAT 99
== END 2025-04-09 21:17 | disposition home or self-care (01) ==
LOC: ER 15:07
DX: S09.93XA Unspecified injury of face, initial encounter (principal); F10.129 Alcohol abuse with intoxication, unspecified; F17.210 Nicotine dependence, cigarettes, uncomplicated; Z79.899 Other long term (current) drug therapy; X58.XXXA Exposure to other specified factors, initial encounter; Y93.89 Activity, other specified; Y92.89 Other specified places as the place of occurrence of the external cause; Y99.8 Other external cause status; Y90.9 Presence of alcohol in blood, level not specified
CPT/HCPCS: 36415; 80048; 80320; 81001; 85025; 96360; 96361; 99284; J7030

== ENCOUNTER 2025-04-17 11:31 | Emergency (ER) | payer MEDICAID ==
[~2025-04-17] VITALS: Ht 157.5 cm; Wt 48.1 kg
[2025-04-17 11:32] VITALS: TEMP 98.1
--- NOTE | 2025-04-17 12:38 | ED.PDOC ---
History of Present Illness HPI Comments 25-year-old female history of alcohol abuse last drink was yesterday night at 11:00 p.m.. She had vodka. She comes today because she is having epigastric discomfort shaking. She did take Librium prior to coming to the ER. She does drink every day along with taking Librium. She has been drinking for many y ears. Denies any past medical a two such as hypertension diabetes. Denies any other symptoms. Chief Complaint: Abdominal Pain Time Seen by MD: 11:35 Primary Care Provider: SHARMIN Reviewed Notes: Nurses Notes, Medications, Allergies Allergies: Coded Allergies: NO KNOWN ALLERGIES (Unverified , 03/21/24) Home Meds Active Scripts Chlordiazepoxide Hcl (Ni-1) (I (Librium) 10 Mg Cap, 10 MG PO BID for 7 Days, #14 CAP Prov:GISELLA DA SILVA MD 03/28/25 Chlordiazepoxide Hcl (Ni-1) (I (Librium) 10 Mg Cap, 10 MG PO DAILY for 3 Days, #3 CAP Prov:LALITA GARCIA MD 02/14/25 Ibuprofen (Ibuprofen) 600 Mg Tab, 1 TAB PO TID for 10 Days, #30 TAB 0 Refills Prov:NEGRO ROSSI NP 02/13/25 Ciprofloxacin Hcl (Cipro) 500 Mg Tab, 1 TAB PO BID for 7 Days, #14 TAB 0 Refills Prov:NEGRO ROSSI NP 02/13/25 Amoxicillin & Pot Clavulanate (AUGMENTIN TABLET) 875 Mg Tb, 875 MG PO BID for 5 Days, #10 TAB 0 Refills Prov:NEGRO ROSSI NP 02/13/25 Ondansetron Odt 4MG Tab (ZOFRAN PO) 4 Mg Tb, 4 MG PO Q8HP PRN for 7 Days, #21 TAB ODT TAB-DISSOLVE IN MOUTH, THEN SWALLOW Prov:GISELLA DA SILVA MD 02/04/25 Thiamine Hcl (VITAMIN B-1) 100 Mg Tb, 100 MG PO DAILY for 30 Days, #30 TAB Prov:FABIANO MURDOCK RESIDENT 03/22/24 Folic Acid (Folic Acid) 1 Mg Tab, 1 MG PO DAILY for 30 Days, #30 TAB Prov:FABIANO MURDOCK RESIDENT 03/22/24 Mode of Arrival: Ambulatory Severity: Moderate Timing: Days Duration: Since onset Past Medical History PAST MEDICAL HISTORY: Denies Surgical History: Denies all surgeries DISTRICT FIRE CHIEF History: No Pertinent DISTRICT FIRE CHIEF History Family History Family History: Unknown Social History Smoker: Cigarettes Alcohol: Heavy Drugs: Marijuana Lives In: Home Constitutional: denies: chills, diaphoresis, fatigue, fever, malaise, sweats, weakness, others EENTM: denies: blurred vision, double vision, ear bleeding, ear discharge, ear drainage, ear pain, ear ringing, eye pain, eye redness, hearing loss, mouth pain, mouth swelling, nasal discharge, nose bleeding, nose congestion, nose pain, photophobia, tearing, throat pain, throat swelling, voice changes, others Respiratory: denies: cough, hemoptysis, orthopnea, SOB at rest, shortness of breath, SOB with excertion, stridor, wheezing, others Cardiovascular: denies: chest pain, dizzy spells, diaphoresis, Dyspnea on exertion, edema, irregular heart beat, left arm pain, lightheadedness, palpitations, PND, syncope, others Gastrointestinal: reports: abdominal pain; denies: abdomen distended, blood streaked bowels, constipated, diarrhea, dysphagia, difficulty swallowing, hematemesis, melena, nausea, poor appetite, poor fluid intake, rectal bleeding, rectal pain, vomiting, others Genitourinary: denies: abnormal vagina bleeding, burning, dyspareunia, dysuria, flank pain, frequency, hematuria, incontinence, pain, , vagina discharge, urgency, others Neurological: denies: dizziness, fainting, headache, left sided numbness, left sided weakness, numbness, paresthesia, pre-existing deficit, right sided n umbness, right sided weakness, seizure, speech problems, tingling, tremors, weakness, others Musculoskeletal: denies: back pain, gout, joint pain, joint swelling, muscle pain, muscle stiffness, neck pain, others Integumetry: denies: bruises, change in color, change in hair/nails, dryness, laceration, lesions, lumps, rash, wounds, others Allergic/Immunocompromised: denies: Difficulty Healing, Frequent Infections, Hives, Itching, others Hematologic/Lymphatic: denies: anemia, blood clots, easy bleeding, easy bruising, swollen glands, others Endocrine: denies: excessive hunger, excessive sweating, excessive thirst, excessive urination, flushing, intolerance to cold, intolerance to heat, unexplained weight gain, unexplained weight loss, others Psychiatric: denies: anxiety, bipolar disorder, depression, hopeless, panic disorder, schizophrenia, sleepless, suicidal, others Physical Exam General Appearance: Moderate Distress HEENT: Normal ENT Inspection, Pharynx Normal, TMs Normal Neck: Full Range of Motion, Non-Tender, Normal, Normal Inspection Respiratory: Chest Non-Tender, Lungs Clear, No Accessory Muscle Use, No Respiratory Distress, Normal Breath Sounds Cardiovascular: No Edema, No JVD, No Murmur, No Gallop, Normal Peripheral Pulses, Regular Rate/Rhythm Breast Exam: Deferred Gastrointestinal: No Organomegaly, Non Tender, No Pulsatile Mass, Normal Bowel Sounds, Soft Genitalia: Deferred Pelvic: Deferred Rectal: Deferred Extremities: No calf tenderness, Normal capillary refill, Normal inspection, Normal range of motion, Non-tender, No pedal edema Musculoskeletal : Apperance: Normal Neurologic: Alert, position classification specialist II-XII nml as Tested, No Motor Deficits, Normal Affect, Normal Mood, No Sensory Deficits Cerebellar Function: Normal Reflexes: Normal Skin: Dry, Normal Color, Warm Peripheral Pulses: 3+ Radial (R), 3+ Radial (L) Lymphatic: No Adenopathy Was a procedure done? Was a procedure done?: No Differential Dx Considerations may include: Gastritis Electrolyte imbalance X-Ray, Labs, Meds, VS Vital Signs Date Time Temp Pulse Resp B/P (MAP) Pulse Ox O2 Delivery O2 Flow Rate FiO2 04/17/25 11:32 98.1 83 19 117/80 98 98.1 Lab Test 04/17/25 12:26 Range/Units Sodium Level Pending Potassium Level Pending Chloride Level Pending Carbon Dioxide Level Pending Anion Gap Pending Blood Urea Nitrogen Pending Creatinine Pending Glomerular Filtration Rate Calc Pending BUN/Creatinine Ratio Pending Serum Glucose Pending Calcium Level Pending Plasma/Serum Blood Alcohol Pending Patient alert. Complaining of epigastric discomfort. Vitals stable. Answering questions. No risk factors for coronary artery disease. Counseled patient on effects of drinking for 15 minutes. Was given Protonix. Was given thiamine. Establish intravenous access. Was given fluids. Explained to the patient. Was told to follow up with her primary care physician. Was told to come back if there is any problem. Time of 1ST Reevaluation: 12:36 Reevaluation 1ST: Improved Patient Education/Counseling: Diagnosis, Treatment, Prognosis, Need For Follow Up Family Education/Counseling: No Family Present SEPSIS Sepsis Screen Date sepsis recognized/suspect: Apr 17, 2025 Time Sepsis recognized/suspect: 113 Recent Procedure: No On Antibiotic Therapy: No Respiratory Rate >20: No Heart Rate >90: No Temp<36 C (96.8 F) or >38.3 C: No SBP <90 or MAP <65 mmHG: No New Acute Mental Status Change: No Is the patient on CPAP, BIPAP,: No Physician Orders Urinalysis (04/17/25 12:05) Basic Metabolic Panel (04/17/25 12:05) Blood Alcohol (04/17/25 12:05) Sodium Chloride 0.9% (04/17/25 12:15) Vital Signs Date Time Temp Pulse Resp B/P (MAP) Pulse Ox O2 Delivery O2 Flow Rate FiO2 04/17/25 11:32 98.1 83 19 117/80 98 98.1 Departure 1 Departure Time of Disposition: 12:38 Impression: Primary Impression: Alcoholic gastritis Qualified Codes: K29.20 - Alcoholic gastritis without bleeding Disposition: 01 HOME / SELF CARE / HOMELESS Condition: Good Discharged With: Self Critical Care Note Critical Care Time?: No Stability Stability form required: No Heart Score Heart Score: Heart Score Response (Comments) Value History N/A 0 EKG N/A 0 Age N/A 0 Risk Factors N/A 0 Troponin N/A 0 Total 0 LALITA GARCIA MD Apr 17, 2025 12:38
[2025-04-17 13:09] LABS: Chloride 98 mmol/L (98-107); Potassium 3.7 mmol/L (3.5-5.1); Sodium 139 mmol/L (136-145)
[2025-04-17 13:10] LABS: Anion Gap 13 (5-15); Calcium 9.8 mg/dL (8.7-10.4); Carbon Dioxide 28 mmol/L (20-31)
[2025-04-17 13:15] LABS: Glucose 92 mg/dL (74-106)
[2025-04-17 13:16] LABS: BUN/Creatinine Ratio 9.3 (10.0-20.0); Blood Urea Nitrogen < 5 mg/dL (9-23)
[2025-04-17] MEDS: LORazepam 2MG/ML-1ML VIAL IV ONE (15:45)
[2025-04-17] MEDS: SODIUM CHLORIDE 0.9% 1,000 ML IV ONE (15:45)
[2025-04-17] MEDS: PANTOPRAZOLE 40 MG/10 ML VIAL INJ IV ONE (15:45)
[2025-04-17] MEDS: THIAMINE 100mg/ml INJ (200mg/2ml VIAL) IV ONE (15:45)
[2025-04-17 15:56] VITALS: BP 114/71; PULSE 65; RESP 16; O2SAT 99
== END 2025-04-17 16:30 | disposition home or self-care (01) ==
LOC: ER 11:31
DX: K29.20 Alcoholic gastritis without bleeding (principal); F17.210 Nicotine dependence, cigarettes, uncomplicated; Z79.899 Other long term (current) drug therapy
CPT/HCPCS: 36415; 80048; 80320; 96361; 96374; 96375; 99284; J2060; J2470; J3411; J7030

== ENCOUNTER 2025-05-20 12:46 | Emergency (ER) | payer MEDICAID ==
[~2025-05-20] VITALS: Ht 160 cm; Wt 47.7 kg
--- NOTE | 2025-05-20 13:00 | ED.PDOC ---
General HPI Comments Parisa Gonzalez is a 25-year-old female with past medical history of alcohol abuse (since age 15th) with multiples admissions due to alcohol withdrawal, GERD, and anxiety. The patient came to the ED with chief complain of 3 months of on and off epigastric abdominal pain, 5/10, burning-like, irradiate to the umbilical area and back, associated with nausea, vomit of gastric content # 3 per day, urinary urgency and dysuria, unintentional weight loss of approximate 10 pounds. Today, the patient reports worsen of abdominal pain 9/10 with nausea and vomit >4 times, and 1 day of noticing black stools, this prompted her visit to the ED. The patient denies hematemesis, fever, chills, diarrhea, hematochezia or other symptoms. In the ED BP: 135/82, HR: 103bpm. Chief Complaint: Abdominal Pain Time Seen by MD: 12:59 Primary Care Provider: SHARMIN Reviewed notes: Nurses Notes, Medications, Allergies Allergies: Coded Allergies: NO KNOWN ALLERGIES (Unverified , 03/21/24) Home Meds Active Scripts Chlordiazepoxide Hcl (Ni-1) (I (Librium) 10 Mg Cap, 10 MG PO BID for 7 Days, #14 CAP Prov:GISELLA DA SILVA MD 03/28/25 Chlordiazepoxide Hcl (Ni-1) (I (Librium) 10 Mg Cap, 10 MG PO DAILY for 3 Days, #3 CAP Prov:LALITA GARCIA MD 02/14/25 Ibuprofen (Ibuprofen) 600 Mg Tab, 1 TAB PO TID for 10 Days, #30 TAB 0 Refills Prov:NEGRO ROSSI NP 02/13/25 Ciprofloxacin Hcl (Cipro) 500 Mg Tab, 1 TAB PO BID for 7 Days, #14 TAB 0 Refills Prov:NEGRO ROSSI NP 02/13/25 Amoxicillin & Pot Clavulanate (AUGMENTIN TABLET) 875 Mg Tb, 875 MG PO BID for 5 Days, #10 TAB 0 Refills Prov:NEGRO ROSSI NP 02/13/25 Ondansetron Odt 4MG Tab (ZOFRAN PO) 4 Mg Tb, 4 MG PO Q8HP PRN for 7 Days, #21 TAB ODT TAB-DISSOLVE IN MOUTH, THEN SWALLOW Prov:GISELLA DA SILVA MD 02/04/25 Thiamine Hcl (VITAMIN B-1) 100 Mg Tb, 100 MG PO DAILY for 30 Days, #30 TAB Prov:FABIANO MURDOCK RESIDENT 03/22/24 Folic Acid (Folic Acid) 1 Mg Tab, 1 MG PO DAILY for 30 Days, #30 TAB Prov:FABIANO MURDOCK RESIDENT 03/22/24 Information Source: Patient Mode of Arrival: Ambulatory Severity: Mild Timing: Months Duration: Since onset Onset: Spontaneous associated signs and symptoms: Abdominal Pain, Nausea, Vomiting Past Medical History PAST MEDICAL HISTORY: Anxiety, GERD Past Medical History (Other): Alcohol abuse Alcohol withdrawal sindrome in multiples occassions Surgical History: Denies all surgeries LMP 03/29/2025 Family History Family History: Reviewed,noncontributory to illness, Unknown Social History Smoker: Cigarettes (1-2 per day) Alcohol: Heavy (daily alcohol drinking) Drugs: Marijuana (daily use) Lives In: Home Constitutional: reports: fatigue; denies: chills, diaphoresis, fever, malaise, sweats, weakness, others EENTM: denies: blurred vision, double vision, ear bleeding, ear discharge, ear drainage, ear pain, ear ringing, eye pain, eye redness, hearing loss, mouth pain, mouth swelling, nasal discharge, nose bleeding, nose congestion, nose pain, photophobia, tearing, throat pain, throat swelling, voice changes, others Respiratory: denies: cough, hemoptysis, orthopnea, SOB at rest, shortness of breath, SOB with excertion, stridor, wheezing, others Cardiovascular: denies: chest pain, dizzy spells, diaphoresis, Dyspnea on exertion, edema, irregular heart beat, left arm pain, lightheadedness, palpitations, PND, syncope, others Gastrointestinal: reports: abdominal pain, nausea, vomiting, others (Weight loss, approximated 10 punds on last 3 months) Genitourinary: denies: abnormal vagina bleeding, burning, dyspareunia, dysuria, flank pain, frequency, hematuria, incontinence, pain, , vagina discharge, urgency, others Neurological: denies: dizziness, fainting, headache, left sided numbness, left sided weakness, numbness, paresthesia, pre-existing deficit, right sided numbness, right sided weakness, seizure, speech problems, tingling, tremors, weakness, others Musculoskeletal: denies: back pain, gout, joint pain, joint swelling, muscle pain, muscle stiffness, neck pain, others Integumetry: denies: bruises, change in color, change in hair/nails, dryness, laceration, lesions, lumps, rash, wounds, others Allergic/Immunocompromised: denies: Difficulty Healing, Frequent Infections, Hives, Itching, others Hematologic/Lymphatic: denies: anemia, blood clots, easy bleeding, easy bruising, swollen glands, others Endocrine: denies: excessive hunger, excessive sweating, excessive thirst, excessive urination, flushing, intolerance to cold, intolerance to heat, unexplained weight gain, unexplained weight loss, others Psychiatric: reports: anxiety, others (alcohol abuse disorder); denies: bipolar disorder, depression, hopeless, panic disorder, schizophrenia, sleepless, suicidal Physical Exam General Appearance: Mild Distress HEENT: Normal ENT Inspection, Pharynx Normal, TMs Normal Neck: Full Range of Motion, Non-Tender, Normal, Normal Inspection Respiratory: Chest Non-Tender, Lungs Clear, No Accessory Muscle Use, No Respiratory Distress, Normal Breath Sounds Cardiovascular: No Edema, No JVD, No Murmur, No Gallop, Normal Peripheral Pulses, Regular Rate/Rhythm Breast Exam: Deferred Gastrointestinal: Epigastric, Tenderness Genitalia: Deferred Pelvic: Deferred Rectal: Deferred Extremities: No calf tenderness, Normal capillary refill, Normal inspection, Normal range of motion, Non-tender, No pedal edema Neurologic: Alert, hairpiece stylist II-XII nml as Tested, No Motor Deficits, Normal Affect, Normal Mood, No Sensory Deficits Cerebellar Function: Normal Reflexes: Normal Skin: Dry, Normal Color, Warm Lymphatic: No Adenopathy Was a procedure done? Was a procedure done?: No Differential Diagnosis Kidney stone (Female): Pancreatitis Kidney stone (Male): Urinary tract infection, N/A Penile/Scrotal: N/A Other Differential Diagnosis #GERD #PUD #Gastritis #Upper GI bleeding X-Ray, Labs, Meds, VS Vital Signs Date Time Temp Pulse Resp B/P (MAP) Pulse Ox O2 Delivery O2 Flow Rate FiO2 05/20/25 14:25 97 18 96 Room Air* 0 21 05/20/25 14:24 98.6 97 18 119/83 (95) 96 98.6 05/20/25 12:47 98.0 103 20 135/82 98 98.0 Lab Test 05/20/25 14:21 05/20/25 13:44 Range/Units Urine Color [place] H Yellow Urine Clarity Turbid H Clear Urine pH 7.5 5.0-9.0 Urine Specific [place] 1.029 1.001-1.035 Urine Protein 2+ H Negative Urine Ketones Trace Negative Urine Blood Negative Negative /uL Urine Nitrite Negative Negative Urine Bilirubin 1+ H Negative Urine Urobilinogen 4 H Negative mg/dL Urine Leukocyte Esterase 2+ Negative /uL Urine RBC 1 0 - 4 /hpf Urine Microscopic WBC 6 H 0-5 /HPF Urine Squamous Epithelial Cells Mod <5 /hpf Urine Bacteria Few H None Seen /hpf Urine Mucus Few None Seen Urine Glucose Trace Normal mg/dL Urine Test Negative Negative Urine Opiates Screen Neg NEGATIVE Urine Fentanyl Screen Neg NEGATIVE Urine Barbiturates Screen Neg NEGATIVE Urine Phencyclidine Screen Neg NEGATIVE Urine Amphetamines Screen Neg NEGATIVE Urine Benzodiazepines Screen Pos NEGATIVE Urine Cocaine Screen Neg NEGATIVE Urine Cannabinoids Screen Pos NEGATIVE White Blood Count 5.7 4.4-10.8 10^3/uL Red Blood Count 3.99 L 4.0-5.20 10^6/uL Hemoglobin 14.2 12.2-16.2 g/dL Hematocrit 40.4 36.0-46.0 % Mean Corpuscular Volume 101.4 H 80.0-100.0 fL Mean Corpuscular Hemoglobin 35.7 H 28.0-32.0 pg Mean Corpuscular Hemoglobin Concent 35.2 32.0-36.0 g/dL Red Cell Distribution Width 14.8 H 11.8-14.3 % Platelet Count 122 L 140-450 10^3/uL Mean Platelet Volume 9.9 6.9-10.8 fL Neutrophils (%) (Auto) 84.9 H 37.0-80.0 % Lymphocytes (%) (Auto) 8.0 L 10.0-50.0 % Monocytes (%) (Auto) 6.3 0.0-12.0 % Eosinophils (%) (Auto) 0.4 0.0-7.0 % Basophils (%) (Auto) 0.4 0.0-2.0 % Neutrophils # (Auto) 4.9 1.6-8.6 10 ^3/uL Lymphocytes # (Auto) 0.5 0.4-5.4 10 ^3/uL Monocytes # (Auto) 0.4 0-1.3 10 ^3/uL Eosinophils # (Auto) 0 0-0.8 10 ^3/uL Basophils # (Auto) 0 0-0.2 10 ^3/uL Nucleated Red Blood Cells 0.0 % Sodium Level 134 L 136-145 mmol/L Potassium Level 4.4 3.5-5.1 mmol/L Chloride Level 94 L 98-107 mmol/L Carbon Dioxide Level 29 20-31 mmol/L Anion Gap 11 5-15 Blood Urea Nitrogen < 5 L 9-23 mg/dL Creatinine 0.66 0.550-1.02 mg/dL Glomerular Filtration Rate Calc 123 >90 mL/min BUN/Creatinine Ratio 7.6 L 10.0-20.0 Serum Glucose 121 H 74-106 mg/dL Calcium Level 10.5 H 8.7-10.4 mg/dL Total Bilirubin 2.8 H 0.2-1.0 mg/dL Aspartate Amino Transferase (AST) 435 H 13-40 U/L Alanine Aminotransferase (ALT) 81 H 7-40 U/L Alkaline Phosphatase 469 H 46-116 U/L Total Protein 9.0 H 5.7-8.2 g/dL Albumin 4.9 H 3.2-4.8 g/dL Lipase 35 12-53 U/L Plasma/Serum Blood Alcohol < 3.0 <10 mg/dL Current Medications Medications (Trade) Dose Ordered Sig/Daniela Route Start Time Stop Time Status Last Admin Ondansetron HCl (Zofran) 4 mg ONCE ONCE IV 05/20/25 13:45 05/20/25 13:46 DC 05/20/25 14:14 Pantoprazole Sodium (Protonix) 40 mg ONCE ONCE IV 05/20/25 13:45 05/20/25 13:46 DC 05/20/25 14:14 Sodium Chloride 500 ml @ 500 mls/hr Q1H ONCE IV 05/20/25 13:45 05/20/25 14:44 DC 05/20/25 14:15 X-Ray, Labs, Meds, VS Comment The patient was re-evaluated, vital signs are stable. The patient report improvement on abdominal pain, nausea and vomit. The patient refused the FOBT, upper GI bleeding cannot be rule out. CMP show transaminitis and elevated billirubin, the patient wants to continue f/u with PCP for this. Lipase: WNL UA: lower urinary tract UTI Time of 1ST Reevaluation: 13:59 Reevaluation 1ST: Improved Patient Education/Counseling: Diagnosis, Treatment, Prognosis, Need For Follow Up Family Education/Counseling: No Family Present SEPSIS Sepsis Screen Date sepsis recognized/suspect: May 20, 2025 Time Sepsis recognized/suspect: 1247 Recent Procedure: No On Antibiotic Therapy: No Respiratory Rate >20: No Heart Rate >90: Yes Temp<36 C (96.8 F) or >38.3 C: No SBP <90 or MAP <65 mmHG: No New Acute Mental Status Change: No Is the patient on CPAP, BIPAP,: No Physician Orders Stool Occult Blood (05/20/25 13:36) Vital Signs Date Time Temp Pulse Resp B/P (MAP) Pulse Ox O2 Delivery O2 Flow Rate FiO2 05/20/25 14:25 97 18 96 Room Air* 0 21 05/20/25 14:24 98.6 97 18 119/83 (95) 96 98.6 05/20/25 12:47 98.0 103 20 135/82 98 98.0 Laboratory Tests Test 05/20/25 13:44 White Blood Count 5.7 10^3/uL (4.4-10.8) Medications Medications Dose Ordered Sig/Daniela Route Start Time Stop Time Status Last Admin Dose Admin Ondansetron HCl 4 mg ONCE ONCE IV 05/20/25 13:45 05/20/25 13:46 DC 05/20/25 14:14 Pantoprazole Sodium 40 mg ONCE ONCE IV 05/20/25 13:45 05/20/25 13:46 DC 05/20/25 14:14 Sodium Chloride 500 ml @ 500 mls/hr Q1H ONCE IV 05/20/25 13:45 05/20/25 14:44 DC 05/20/25 14:15 Departure 1 Departure Time of Disposition: 15:43 Impression: Primary Impression: Gastritis Additional Impressions: GERD (gastroesophageal reflux disease) Urinary tract infection Alcohol abuse Disposition: 01 HOME / SELF CARE / HOMELESS Condition: Good Referrals F/U with PCP in one week Referrals: JUAN MONGE MD Additional Instructions: Referral for GI (Dr. Monge) Pantoprazol 40mg po qd Avoid irritants: Alcohol, spacy food. Zofran 4mg po Q6H prn for nausea [id number] po bid for 7 days. Discharged With: Self Comments Goals of care discussed with the patient > 35 min. Discussed plan of care with Dr. Garcia Code status: Full code PCP: Dr. Hill Plan discussed with: Patient, the patient agrees with the plan. Critical Care Note Critical Care Time?: No Stability Stability form required: No Heart Score Heart Score: Heart Score Response (Comments) Value History N/A 0 EKG N/A 0 Age N/A 0 Risk Factors N/A 0 Troponin N/A 0 Total 0 JEN GODINEZ RESIDENT May 20, 2025 13:00
[2025-05-20 13:58] LABS: Hemoglobin 14.2 g/dL (12.2-16.2); Nucleated Red Blood Cells % 0.0 %
[2025-05-20 14:00] LABS: Hematocrit 40.4 % (36.0-46.0); Mean Corpuscular Hemoglobin 35.7 pg (28.0-32.0); Mean Corpuscular Volume 101.4 fL (80.0-100.0)
[2025-05-20 14:12] LABS: Anion Gap 11 (5-15); Carbon Dioxide 29 mmol/L (20-31); Potassium 4.4 mmol/L (3.5-5.1)
[2025-05-20] MEDS: ONDANSETRON HCL 4 MG/2 ML VIAL IV ONE (14:14)
[2025-05-20] MEDS: PANTOPRAZOLE 40 MG/10 ML VIAL INJ IV ONE (14:14)
[2025-05-20] MEDS: SODIUM CHLORIDE 0.9% 500 ML IV ONE (14:15)
[2025-05-20 14:17] LABS: Alanine Aminotransferase 81 U/L (7-40); Albumin 4.9 g/dL (3.2-4.8); Alkaline Phosphatase 469 U/L (46-116); BUN/Creatinine Ratio 7.6 (10.0-20.0); Bilirubin, Total 2.8 mg/dL (0.2-1.0); Blood Urea Nitrogen < 5 mg/dL (9-23); Calcium 10.5 mg/dL (8.7-10.4); Chloride 94 mmol/L (98-107); Glucose 121 mg/dL (74-106); Sodium 134 mmol/L (136-145); Total Protein 9.0 g/dL (5.7-8.2)
[2025-05-20 14:24] VITALS: BP 119/83; TEMP 98.6
[2025-05-20 14:25] VITALS: PULSE 97; RESP 18; O2SAT 96
[2025-05-20 14:35] LABS: Lipase 35 U/L (12-53)
[2025-05-20 14:38] LABS: Urine Protein, UAD 2+ (Negative)
[2025-05-20 14:51] LABS: Benzodiazephine Screen, Urine Pos (NEGATIVE); Cannabinoid Screen, Urine Pos (NEGATIVE)
[2025-05-20 14:55] LABS: Amphetamine Screen, Urine Neg (NEGATIVE); Barbiturate Scree,Urine Neg (NEGATIVE); Cocaine Screen, Urine Neg (NEGATIVE); Opiate Scree,Urine Neg (NEGATIVE); Phencyclidine Screen, Urine Neg (NEGATIVE)
[2025-05-21] MEDS ORDERED: NITR-52 PO (17:05)
[2025-05-21] MEDS ORDERED: FAMO20TA10 PO (17:05)
[2025-05-21] MEDS ORDERED: ZOFR4T PO (17:05)
== END 2025-05-20 18:22 | disposition home or self-care (01) ==
LOC: ER 12:46
DX: K29.70 Gastritis, unspecified, without bleeding (principal); K21.9 Gastro-esophageal reflux disease without esophagitis; N39.0 Urinary tract infection, site not specified; F41.9 Anxiety disorder, unspecified; F10.239 Alcohol dependence with withdrawal, unspecified; F12.90 Cannabis use, unspecified, uncomplicated; F17.210 Nicotine dependence, cigarettes, uncomplicated; Z79.899 Other long term (current) drug therapy; Y90.9 Presence of alcohol in blood, level not specified
CPT/HCPCS: 36415; 80053; 80307; 80320; 81001; 81025; 83690; 85025; 96361; 96374; 96375; 99284; J2405; J2470; J7040

== ENCOUNTER 2025-06-17 07:50 | Emergency (ER) | payer MEDICAID ==
[~2025-06-17] VITALS: Ht 160 cm; Wt 46.0 kg
[~2025-06-17 07:50] MED LIST changes: +FAMO20TA10 PO; +NITR-52 PO
[2025-06-17 08:26] LABS: Urine Protein, UAD 1+ (Negative)
--- NOTE | 2025-06-17 08:38 | ED.PDOC ---
GI ASSESSMENT HPI Comments This is a 25-year-old female, with a history of gastritis, who presents to the ED with a chief complaint of a diffuse abdominal pain, abdominal distention, and N/V as of this morning. Patient reports recent ingestion of ETOH this morning, vodka. Patient additionally states she has been eating spicy food and junk food recently. Patient has no further complaints at this time and otherwise denies further associated symptoms of diarrhea, hematemesis, fever, or chills. Chief Complaint: Abdominal Pain Time Seen by MD: 08:21 Primary Care Provider: SHARMIN Reviewed Notes: Medications, Allergies Allergies: Coded Allergies: NO KNOWN ALLERGIES (Unverified , 03/21/24) Home Meds Active Scripts Ondansetron Odt 4MG Tab (ZOFRAN PO) 4 Mg Tb, 4 MG PO TIDPRN PRN for 14 Days, #42 TAB ODT TAB-DISSOLVE IN MOUTH, THEN SWALLOW Prov:CARA DORSEY 05/21/25 Famotidine (PEPCID TABLET) 20 Mg Tb, 1 TAB PO DAILY for 30 Days, #30 TAB Prov:CARA DORSEY 05/21/25 Nitrofurantoin (Nitrofurantoin) 100 Mg Cap, 1 CAP PO BID for 7 Days, #14 CAP Prov:CARA DORSEY [facility] 05/21/25 Chlordiazepoxide Hcl (Ni-1) (I (Librium) 10 Mg Cap, 10 MG PO BID for 7 Days, #14 CAP Prov:GISELLA DA SILVA MD 03/28/25 Chlordiazepoxide Hcl (Ni-1) (I (Librium) 10 Mg Cap, 10 MG PO DAILY for 3 Days, #3 CAP Prov:LALITA GARCIA MD 02/14/25 Ibuprofen (Ibuprofen) 600 Mg Tab, 1 TAB PO TID for 10 Days, #30 TAB 0 Refills Prov:NEGRO ROSSI NP 02/13/25 Ciprofloxacin Hcl (Cipro) 500 Mg Tab, 1 TAB PO BID for 7 Days, #14 TAB 0 Refills Prov:NEGRO ROSSI NP 02/13/25 Amoxicillin & Pot Clavulanate (AUGMENTIN TABLET) 875 Mg Tb, 875 MG PO BID for 5 Days, #10 TAB 0 Refills Prov:NEGRO ROSSI NP 02/13/25 Ondansetron Odt 4MG Tab (ZOFRAN PO) 4 Mg Tb, 4 MG PO Q8HP PRN for 7 Days, #21 TAB ODT TAB-DISSOLVE IN MOUTH, THEN SWALLOW Prov:GISELLA DA SILVA MD 02/04/25 Thiamine Hcl (VITAMIN B-1) 100 Mg Tb, 100 MG PO DAILY for 30 Days, #30 TAB Prov:FABIANO MURDOCK RESIDENT 03/22/24 Folic Acid (Folic Acid) 1 Mg Tab, 1 MG PO DAILY for 30 Days, #30 TAB Prov:FABIANO MURDOCK RESIDENT 03/22/24 Information Source: Patient Mode of Arrival: Ambulatory Timing: Hours Duration: Since onset Severity: Moderate Recent: Ingestion of ETOH Pain Location: Diffuse Associated sign and symptoms: Nausea, Vomiting, Abdominal Pain Past Medical History PAST MEDICAL HISTORY: Anxiety, GERD Past Medical History (Other): Gastritis Surgical History: Denies all surgeries Family History Family History: Reviewed,noncontributory to illness, Unknown Social History Smoker: Cigarettes Alcohol: Heavy Drugs: Marijuana Lives In: Home Constitutional: denies: chills, diaphoresis, fatigue, fever, malaise, sweats, weakness, others EENTM: denies: blurred vision, double vision, ear bleeding, ear discharge, ear drainage, ear pain, ear ringing, eye pain, eye redness, hearing loss, mouth pain, mouth swelling, nasal discharge, nose bleeding, nose congestion, nose pain, photophobia, tearing, throat pain, throat swelling, voice changes, others Respiratory: denies: cough, hemoptysis, orthopnea, SOB at rest, shortness of breath, SOB with excertion, stridor, wheezing, others Cardiovascular: denies: chest pain, dizzy spells, diaphoresis, Dyspnea on exertion, edema, irregular heart beat, left arm pain, lightheadedness, palpitations, PND, syncope, others Gastrointestinal: reports: abdomen distended, abdominal pain, nausea, vomiting; denies: blood streaked bowels, constipated, diarrhea, dysphagia, difficulty swallowing, hematemesis, melena, poor appetite, poor fluid intake, rectal bleeding, rectal pain, others Genitourinary: denies: abnormal vagina bleeding, burning, dyspareunia, dysuria, flank pain, frequency, hematuria, incontinence, pain, , vagina dis charge, urgency, others Neurological: denies: dizziness, fainting, headache, left sided numbness, left sided weakness, numbness, paresthesia, pre-existing deficit, right sided numbness, right sided weakness, seizure, speech problems, tingling, tremors, weakness, others Musculoskeletal: denies: back pain, gout, joint pain, joint swelling, muscle pain, muscle stiffness, neck pain, others Integumetry: denies: bruises, change in color, change in hair/nails, dryness, laceration, lesions, lumps, rash, wounds, others Allergic/Immunocompromised: denies: Difficulty Healing, Frequent Infections, Hives, Itching, others Hematologic/Lymphatic: denies: anemia, blood clots, easy bleeding, easy bruising, swollen glands, others Endocrine: denies: excessive hunger, excessive sweating, excessive thirst, excessive urination, flushing, intolerance to cold, intolerance to heat, unexplained weight gain, unexplained weight loss, others Psychiatric: denies: anxiety, bipolar disorder, depression, hopeless, panic disorder, schizophrenia, sleepless, suicidal, others All Other Systems: Reviewed and Negative Physical Exam General Appearance: Moderate Distress HEENT: Normal ENT Inspection, Pharynx Normal, TMs Normal Neck: Full Range of Motion, Non-Tender, Normal, Normal Inspection Respiratory: Chest Non-Tender, Lungs Clear, No Accessory Muscle Use, No Respiratory Distress, Normal Breath Sounds Cardiovascular: No Edema, No JVD, No Murmur, No Gallop, Normal Peripheral Pulses, Regular Rate/Rhythm Breast Exam: Deferred Gastrointestinal: No Organomegaly, Non Tender, No Pulsatile Mass, Normal Bowel Sounds, Soft Genitalia: Deferred Pelvic: Deferred Rectal: Deferred Extremities: No calf tenderness, Normal capillary refill, Normal inspection, Normal range of motion, Non-tender, No pedal edema Musculoskeletal : Apperance: Normal Neurologic: Alert, legal administrative secretary II-XII nml as Tested, No Motor Deficits, Normal Affect, Normal Mood, No Sensory Deficits Cerebellar Function: Normal Reflexes: Normal Skin: Dry, Normal Color, Warm Peripheral Pulses: 3+ Radial (R), 3+ Radial (L) Lymphatic: No Adenopathy Was a procedure done? Was a procedure done?: No GI differential Dx Differential Diagnosis: Constipation, Diverticular disease, Esophagitis, Gastritis/PUD, Gastroenteritis, Inflammatory BD, UTI, Urolithiasis, Dehydration, Food Poisoning, Bacterial, Parasitic, Viral X-Ray, Labs, Meds, VS Vital Signs Date Time Temp Pulse Resp B/P (MAP) Pulse Ox O2 Delivery O2 Flow Rate FiO2 06/17/25 08:49 95 18 98 Room Air 06/17/25 08:49 98.7 95 18 97/60 (72) 98 98.7 06/17/25 08:46 Room Air* 0 21 06/17/25 07:59 98.2 103 16 110/70 95 98.2 Lab Test 06/17/25 08:35 06/17/25 08:18 Range/Units Plasma/Serum Blood Alcohol 374.8 H <10 mg/dL Urine Color Dark-yellow Yellow Urine Clarity Turbid H Clear Urine pH 6.0 5.0-9.0 Urine Specific [place] 1.021 1.001-1.035 Urine Protein 1+ H Negative Urine Ketones Trace Negative Urine Blood Negative Negative /uL Urine Nitrite Negative Negative Urine Bilirubin 1+ H Negative Urine Urobilinogen 6 Negative mg/dL Urine Leukocyte Esterase 3+ Negative /uL Urine RBC 15 0 - 4 /hpf Urine Microscopic WBC 67 H 0-5 /HPF Urine Squamous Epithelial Cells Mod <5 /hpf Urine Bacteria Few H None Seen /hpf Urine Hyaline Casts Mod 0 - 2 /lpf Urine Mucus Moderate None Seen Urine Glucose Normal Normal mg/dL Current Medications Medications (Trade) Dose Ordered Sig/Daniela Route Start Time Stop Time Status Last Admin Ondansetron HCl (Zofran) 4 mg ONCE ONCE IV 06/17/25 08:30 06/17/25 08:31 DC 06/17/25 08:44 Sodium Chloride 1,000 ml @ 1,000 mls/hr Q1H ONCE IVB 06/17/25 08:30 06/17/25 09:29 DC 06/17/25 08:44 Pantoprazole Sodium (Protonix) 40 mg ONCE ONCE IV 06/17/25 08:30 06/17/25 08:31 DC 06/17/25 08:44 Patient alert. History of alcohol use. Continues to drink. Vitals stable. Establish intravenous access. Was given fluids. Was given Protonix. Counseled patient on effects of drinking for 15 minutes. She she is ambulating without difficulty. Explained to the patient. Was told to follow up with her primary care physician. Was told to come back if there is any problem. Images Reviewed?: Images reviewed and evaluated by me Time of 1ST Reevaluation: 09:24 Reevaluation 1ST: Unchanged Patient Education/Counseling: Diagnosis, Treatment Family Education/Counseling: No Family Present SEPSIS Sepsis Screen Date sepsis recognized/suspect: Jun 17, 2025 Time Sepsis recognized/suspect: 0759 Recent Procedure: No On Antibiotic Therapy: No Respiratory Rate >20: No Heart Rate >90: Yes Temp<36 C (96.8 F) or >38.3 C: No SBP <90 or MAP <65 mmHG: No New Acute Mental Status Change: No Is the patient on CPAP, BIPAP,: No Vital Signs Date Time Temp Pulse Resp B/P (MAP) Pulse Ox O2 Delivery O2 Flow Rate FiO2 06/17/25 08:49 95 18 98 Room Air 06/17/25 08:49 98.7 95 18 97/60 (72) 98 98.7 06/17/25 08:46 Room Air* 0 21 06/17/25 07:59 98.2 103 16 110/70 95 98.2 Medications Medications Dose Ordered Sig/Daniela Route Start Time Stop Time Status Last Admin Dose Admin Ondansetron HCl 4 mg ONCE ONCE IV 06/17/25 08:30 06/17/25 08:31 DC 06/17/25 08:44 Pantoprazole Sodium 40 mg ONCE ONCE IV 06/17/25 08:30 06/17/25 08:31 DC 06/17/25 08:44 Sodium Chloride 1,000 ml @ 1,000 mls/hr Q1H ONCE IVB 06/17/25 08:30 06/17/25 09:29 DC 06/17/25 08:44 Departure 1 Departure Time of Disposition: 09:41 Impression: Primary Impression: Alcohol abuse Additional Impressions: Urinary tract infection Qualified Codes: N30.00 - Acute cystitis without hematuria Gastritis Qualified Codes: K29.00 - Acute gastritis without bleeding Disposition: 01 HOME / SELF CARE / HOMELESS Condition: Good e-Prescriptions Nitrofurantoin Monohydrate Mac (Macrobid) 100 Mg Cap 100 MG PO BID for 7 Days, #14 CAP Prov: LALITA GARCIA MD 06/17/25 Discharged With: Self Critical Care Note Critical Care Time?: No Stability Stability form required: No Heart Score Heart Score: Heart Score Response (Comments) Value History N/A 0 EKG N/A 0 Age N/A 0 Risk Factors N/A 0 Troponin N/A 0 Total 0 I personally scribed for LALITA GARCIA MD ([facility] [[email or web address] on 06/17/25 at 08:38. Electronically submitted by Evie Blackburn ([facility]). LALITA GARCIA MD Jun 17, 2025 08:38
[2025-06-17] MEDS: SODIUM CHLORIDE 0.9% 1,000 ML IVB ONE (08:44)
[2025-06-17] MEDS: PANTOPRAZOLE 40 MG/10 ML VIAL INJ IV ONE (08:44)
[2025-06-17] MEDS: ONDANSETRON HCL 4 MG/2 ML VIAL IV ONE (08:44)
[2025-06-17] MEDS ORDERED: NITR-87 PO (09:43)
[2025-06-17] MEDS: THIAMINE 100mg/ml INJ (200mg/2ml VIAL) IV ONE (10:05)
== END 2025-06-17 10:16 | disposition home or self-care (01) ==
LOC: ER 07:50
DX: N39.0 Urinary tract infection, site not specified (principal); K29.00 Acute gastritis without bleeding; F10.10 Alcohol abuse, uncomplicated; F17.210 Nicotine dependence, cigarettes, uncomplicated; Z79.899 Other long term (current) drug therapy
CPT/HCPCS: 36415; 80320; 81001; 96361; 96374; 96375; 99284; J2405; J2470; J3411; J7030

== ENCOUNTER 2025-07-05 07:36 | Emergency (ER) | payer MEDICAID ==
[~2025-07-05] VITALS: Ht 160 cm; Wt 45.5 kg
[~2025-07-05 07:36] MED LIST changes: -FAMO20TA10 PO; +NITR-87 PO
--- NOTE | 2025-07-05 07:55 | ED.PDOC ---
GI ASSESSMENT HPI Comments This is a 25 year old female presenting to the ED with chief complaint of abdominal pain. Patient reports that she has been experiencing lower abdominal pain that radiates up her abdomen with associated nausea, vomiting, and constipation for the past 4 days. Patient relays that her symptoms started after eating junk food. Patient states that she has taken Famotidine at home with no relief in symptoms. Patient notes that her LMP was on 03/23/25, but she does not believe she is . Patient denies any diarrhea, fever, chills, chest pain, SOB, dysuria, or vaginal bleeding. Chief Complaint: Abdominal Pain Time Seen by MD: 07:51 Primary Care Provider: SHARMIN Reviewed Notes: Nurses Notes, Medications, Allergies Allergies: Coded Allergies: NO KNOWN ALLERGIES (Unverified , 03/21/24) Home Meds Active Scripts Nitrofurantoin Monohydrate Mac (Macrobid) 100 Mg Cap, 100 MG PO BID for 7 Days, #14 CAP Prov:LALITA GARCIA MD 06/17/25 Ondansetron Odt 4MG Tab (ZOFRAN PO) 4 Mg Tb, 4 MG PO TIDPRN PRN for 14 Days, #42 TAB ODT TAB-DISSOLVE IN MOUTH, THEN SWALLOW Prov:CARA DORSEY RESIDENT 05/21/25 Nitrofurantoin (Nitrofurantoin) 100 Mg Cap, 1 CAP PO BID for 7 Days, #14 CAP Prov:CARA DORSEY RESIDENT 05/21/25 Chlordiazepoxide Hcl (Ni-1) (I (Librium) 10 Mg Cap, 10 MG PO BID for 7 Days, #14 CAP Prov:GISELLA DA SILVA MD 03/28/25 Chlordiazepoxide Hcl (Ni-1) (I (Librium) 10 Mg Cap, 10 MG PO DAILY for 3 Days, #3 CAP Prov:LALITA GARCIA MD 02/14/25 Ibuprofen (Ibuprofen) 600 Mg Tab, 1 TAB PO TID for 10 Days, #30 TAB 0 Refills Prov:NEGRO ROSSI NP 02/13/25 Ciprofloxacin Hcl (Cipro) 500 Mg Tab, 1 TAB PO BID for 7 Days, #14 TAB 0 Refills Prov:NEGRO ROSSI NP 02/13/25 Amoxicillin & Pot Clavulanate (AUGMENTIN TABLET) 875 Mg Tb, 875 MG PO BID for 5 Days, #10 TAB 0 Refills Prov:NEGRO ROSSI NP 02/13/25 Ondansetron Odt 4MG Tab (ZOFRAN PO) 4 Mg Tb, 4 MG PO Q8HP PRN for 7 Days, #21 TAB ODT TAB-DISSOLVE IN MOUTH, THEN SWALLOW Prov:GISELLA DA SILVA MD 02/04/25 Thiamine Hcl (VITAMIN B-1) 100 Mg Tb, 100 MG PO DAILY for 30 Days, #30 TAB Prov:FABIANO MURDOCK 03/22/24 Folic Acid (Folic Acid) 1 Mg Tab, 1 MG PO DAILY for 30 Days, #30 TAB Prov:FABIANO MURDOCK RESIDENT 03/22/24 Information Source: Patient Mode of Arrival: Ambulatory Timing: Days Duration: Since onset Prehospital treatment: None Quality: Sharp Vomitus: Watery Stool: Impaction Severity: Moderate Recent: None Recent Hx of: Constipation Pain Location: Diffuse Modifying Factors: Nothing Associated sign and symptoms: Nausea, Vomiting, Constipation, Abdominal Pain Past Medical History PAST MEDICAL HISTORY: Anxiety, GERD Past Medical History (Other): Gastritis 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 Family History Family History: Reviewed,noncontributory to illness, Unknown Social History Smoker: Non-Smoker Alcohol: Occasionally Drugs: Marijuana Lives In: Home Constitutional: denies: chills, diaphoresis, fatigue, fever, malaise, sweats, weakness, others EENTM: denies: blurred vision, double vision, ear bleeding, ear discharge, ear drainage, ear pain, ear ringing, eye pain, eye redness, hearing loss, mouth pain, mouth swelling, nasal discharge, nose bleeding, nose congestion, nose pain, photophobia, tearing, throat pain, throat swelling, voice changes, others Respiratory: denies: cough, hemoptysis, orthopnea, SOB at rest, shortness of breath, SOB with excertion, stridor, wheezing, others Cardiovascular: denies: chest pain, dizzy spells, diaphoresis, Dyspnea on exertion, edema, irregular heart beat, left arm pain, lightheadedness, palpitations, PND, syncope, others Gastrointestinal: reports: abdominal pain, constipated, nausea, vomiting; denies: abdomen distended, blood streaked bowels, diarrhea, dysphagia, difficulty swallowing, hematemesis, melena, poor appetite, poor fluid intake, rectal bleeding, rectal pain, others Genitourinary: denies: abnormal vagina bleeding, burning, dyspareunia, dysuria, flank pain, frequency, hematuria, incontinence, pain, , vagina discharge, urgency, others Neurological: denies: dizziness, fainting, headache, left sided numbness, left sided weakness, numbness, paresthesia, pre-existing deficit, right sided numbness, right sided weakness, seizure, speech problems, tingling, tremors, weakness, others Musculoskeletal: denies: back pain, gout, joint pain, joint swelling, muscle pain, muscle stiffness, neck pain, others Integumetry: denies: bruises, change in color, change in hair/nails, dryness, laceration, lesions, lumps, rash, wounds, others Allergic/Immunocompromised: denies: Difficulty Healing, Frequent Infections, Hives, Itching, others Hematologic/Lymphatic: denies: anemia, blood clots, easy bleeding, easy bruising, swollen glands, others Endocrine: denies: excessive hunger, excessive sweating, excessive thirst, excessive urination, flushing, intolerance to cold, intolerance to heat, unexplained weight gain, unexplained weight loss, others Psychiatric: denies: anxiety, bipolar disorder, depression, hopeless, panic disorder, schizophrenia, sleepless, suicidal, others All Other Systems: Reviewed and Negative Physical Exam General Appearance: Moderate Distress, Obese HEENT: Normal ENT Inspection, Pharynx Normal, TMs Normal Neck: Full Range of Motion, Non-Tender, Normal, Normal Inspection Respiratory: Chest Non-Tender, Lungs Clear, No Accessory Muscle Use, No Respiratory Distress, Normal Breath Sounds Cardiovascular: No Edema, No JVD, No Murmur, No Gallop, Normal Peripheral Pulses, Regular Rate/Rhythm Breast Exam: Deferred Gastrointestinal: Epigastric, No Organomegaly, No Pulsatile Mass, Normal Bowel Sounds, Soft, Tenderness Genitalia: Deferred Pelvic: Deferred Rectal: Deferred Extremities: No calf tenderness, Normal capillary refill, Normal inspection, Normal range of motion, Non-tender, No pedal edema Musculoskeletal : Apperance: Normal Neurologic: Alert, customer experience associate II-XII nml as Tested, Motor Weakness, Normal Affect, Normal Mood, No Sensory Deficits Cerebellar Function: Normal Reflexes: Normal Skin: Dry, Normal Color, Warm Lymphatic: No Adenopathy Was a procedure done? Was a procedure done?: No GI differential Dx Differential Diagnosis: Appendicitis, Cholangitis, Cholecystitis, Gastritis/PUD, Gastroenteritis, Electrolyte Imbalance, Food Poisoning X-Ray, Labs, Meds, VS Vital Signs Date Time Temp Pulse Resp B/P (MAP) Pulse Ox O2 Delivery O2 Flow Rate FiO2 07/05/25 08:41 94 17 99 Room Air 07/05/25 08:41 98.1 94 17 108/63 (78) 99 98.1 07/05/25 08:00 83 16 107/69 07/05/25 07:41 98.8 102 21 103/71 95 98.8 Lab Test 07/05/25 07:57 Range/Units White Blood Count 9.9 4.4-10.8 10^3/uL Red Blood Count 3.44 L 4.0-5.20 10^6/uL Hemoglobin 12.7 12.2-16.2 g/dL Hematocrit 36.6 36.0-46.0 % Mean Corpuscular Volume 106.5 H 80.0-100.0 fL Mean Corpuscular Hemoglobin 36.8 H 28.0-32.0 pg Mean Corpuscular Hemoglobin Concent 34.6 32.0-36.0 g/dL Red Cell Distribution Width 15.1 H 11.8-14.3 % Platelet Count 198 140-450 10^3/uL Mean Platelet Volume 8.5 6.9-10.8 fL Neutrophils (%) (Auto) 81.7 H 37.0-80.0 % Lymphocytes (%) (Auto) 9.9 L 10.0-50.0 % Monocytes (%) (Auto) 7.4 0.0-12.0 % Eosinophils (%) (Auto) 0.4 0.0-7.0 % Basophils (%) (Auto) 0.6 0.0-2.0 % Neutrophils # (Auto) 8.1 1.6-8.6 10 ^3/uL Lymphocytes # (Auto) 1.0 0.4-5.4 10 ^3/uL Monocytes # (Auto) 0.7 0-1.3 10 ^3/uL Eosinophils # (Auto) 0 0-0.8 10 ^3/uL Basophils # (Auto) 0.1 0-0.2 10 ^3/uL Nucleated Red Blood Cells 0.0 % Sodium Level 137 136-145 mmol/L Potassium Level 3.4 L 3.5-5.1 mmol/L Chloride Level 94 L 98-107 mmol/L Carbon Dioxide Level 25 20-31 mmol/L Anion Gap 18 H 5-15 Blood Urea Nitrogen 6 L 9-23 mg/dL Creatinine 0.43 L 0.550-1.02 mg/dL Glomerular Filtration Rate Calc 137 >90 mL/min BUN/Creatinine Ratio 14.0 10.0-20.0 Serum Glucose 71 L 74-106 mg/dL Calcium Level 9.6 8.7-10.4 mg/dL Total Bilirubin 2.3 H 0.2-1.0 mg/dL Aspartate Amino Transferase (AST) 411 H 13-40 U/L Alanine Aminotransferase (ALT) 74 H 7-40 U/L Alkaline Phosphatase 571 H 46-116 U/L Total Protein 8.5 H 5.7-8.2 g/dL Albumin 4.4 3.2-4.8 g/dL Lipase 29 12-53 U/L Current Medications Medications (Trade) Dose Ordered Sig/Daniela Route Start Time Stop Time Status Last Admin Sodium Chloride 1,000 ml @ 1,000 mls/hr Q1H ONCE IVB 07/05/25 08:00 07/05/25 08:59 DC 07/05/25 08:39 Prochlorperazine Edisylate (Compazine Inj) 10 mg ONCE ONCE IV 07/05/25 08:00 07/05/25 08:01 DC 07/05/25 08:00 Pantoprazole Sodium (Protonix) 40 mg ONCE ONCE IV 07/05/25 08:00 07/05/25 08:01 DC 07/05/25 08:00 Morphine Sulfate 2 mg ONCE ONCE IV 07/05/25 08:00 07/05/25 08:01 DC 07/05/25 08:00 The patient's CBC is within normal limits. The chemistry panel is within normal limits. The liver enzymes are all significantly elevated with a bilirubin of 2.3 The patient was given Protonix 40 mg IV push The patient was given morphine 2 mg IV push The patient was given Compazine 10 mg IV push There is a concern that this patient may have cholecystitis. The patient states that she is now wants to leave AMA We did tell her that she may have a serious gallbladder issue or liver issue but she is leaving any ways We are attempting to call the patient at this time Images Reviewed?: Images reviewed and evaluated by me Time of 1ST Reevaluation: 10:40 Reevaluation 1ST: Unchanged Patient Education/Counseling: Diagnosis, Treatment, Prognosis Family Education/Counseling: No Family Present SEPSIS Sepsis Screen Date sepsis recognized/suspect: Jul 05, 2025 Time Sepsis recognized/suspect: 07 Recent Procedure: No (N) On Antibiotic Therapy: No Respiratory Rate >20: No Heart Rate >90: No Temp<36 C (96.8 F) or >38.3 C: No SBP <90 or MAP <65 mmHG: No New Acute Mental Status Change: No Is the patient on CPAP, BIPAP,: No Physician Orders Urinalysis (07/05/25 07:50) Heplock Iv (07/05/25 07:50) Test, Urine (07/05/25 07:50) Vital Signs Date Time Temp Pulse Resp B/P (MAP) Pulse Ox O2 Delivery O2 Flow Rate FiO2 07/05/25 08:41 94 17 99 Room Air 07/05/25 08:41 98.1 94 17 108/63 (78) 99 98.1 07/05/25 08:00 83 16 107/69 07/05/25 07:41 98.8 102 21 103/71 95 98.8 Laboratory Tests Test 07/05/25 07:57 White Blood Count 9.9 10^3/uL (4.4-10.8) Medications Medications Dose Ordered Sig/Daniela Route Start Time Stop Time Status Last Admin Dose Admin Morphine Sulfate 2 mg ONCE ONCE IV 07/05/25 08:00 07/05/25 08:01 DC 07/05/25 08:00 Pantoprazole Sodium 40 mg ONCE ONCE IV 07/05/25 08:00 07/05/25 08:01 DC 07/05/25 08:00 Prochlorperazine Edisylate 10 mg ONCE ONCE IV 07/05/25 08:00 07/05/25 08:01 DC 07/05/25 08:00 Sodium Chloride 1,000 ml @ 1,000 mls/hr Q1H ONCE IVB 07/05/25 08:00 07/05/25 08:59 DC 07/05/25 08:39 Departure 1 Departure Time of Disposition: 10:40 Impression: Primary Impression: Acute abdominal pain Additional Impression: Elevated liver enzymes Disposition: LEFT AGAINST MEDICAL ADVICE Condition: Fair Critical Care Note Critical Care Time?: No Stability Stability form required: No Heart Score Heart Score: Heart Score Response (Comments) Value History N/A 0 EKG N/A 0 Age N/A 0 Risk Factors N/A 0 Troponin N/A 0 Total 0 I personally scribed for GISELLA DA SILVA MD ([email or web address]) on 07/05/25 at 07:55. Electronically submitted by Balta Herron ([email or web address]). GISELLA DA SILVA MD Jul 05, 2025 07:55
[2025-07-05] MEDS: MORPHINE SULFATE INJ 2 MG/ml SYRG IV ONE (08:00)
[2025-07-05] MEDS: PROCHLORPERAZINE EDISYLATE 5 MG/ML 2ML VIAL IV ONE (08:00)
[2025-07-05] MEDS: PANTOPRAZOLE 40 MG/10 ML VIAL INJ IV ONE (08:00)
[2025-07-05 08:36] LABS: Nucleated Red Blood Cells % 0.0 %
[2025-07-05 08:38] LABS: Hematocrit 36.6 % (36.0-46.0); Hemoglobin 12.7 g/dL (12.2-16.2); Mean Corpuscular Hemoglobin 36.8 pg (28.0-32.0); Mean Corpuscular Volume 106.5 fL (80.0-100.0)
[2025-07-05] MEDS: SODIUM CHLORIDE 0.9% 1,000 ML IVB ONE (08:39)
[2025-07-05 08:41] VITALS: BP 108/63; PULSE 94; RESP 17; TEMP 98.1; O2SAT 99
[2025-07-05 08:46] LABS: Albumin 4.4 g/dL (3.2-4.8); Anion Gap 18 (5-15); BUN/Creatinine Ratio 14.0 (10.0-20.0); Calcium 9.6 mg/dL (8.7-10.4); Carbon Dioxide 25 mmol/L (20-31); Sodium 137 mmol/L (136-145)
[2025-07-05 08:49] LABS: Alanine Aminotransferase 74 U/L (7-40); Alkaline Phosphatase 571 U/L (46-116); Bilirubin, Total 2.3 mg/dL (0.2-1.0); Blood Urea Nitrogen 6 mg/dL (9-23); Chloride 94 mmol/L (98-107); Glucose 71 mg/dL (74-106); Potassium 3.4 mmol/L (3.5-5.1); Total Protein 8.5 g/dL (5.7-8.2)
[2025-07-05 09:18] LABS: Lipase 29 U/L (12-53)
[2025-07-05] MEDS: MORPHINE SULFATE 4 MG/ML SYR/VIAL ONE (09:21)
[2025-07-05 11:53] LABS: Urine Protein, UAD 1+ (Negative)
== END 2025-07-05 09:58 | disposition left against medical advice (07) ==
LOC: ER 07:36
DX: R10.30 Lower abdominal pain, unspecified (principal); R74.8 Abnormal levels of other serum enzymes; F12.90 Cannabis use, unspecified, uncomplicated; F10.90 Alcohol use, unspecified, uncomplicated; F41.9 Anxiety disorder, unspecified; K21.9 Gastro-esophageal reflux disease without esophagitis; Z79.899 Other long term (current) drug therapy; Z87.19 Personal history of other diseases of the digestive system
CPT/HCPCS: 36415; 80053; 81001; 81025; 83690; 85025; 96361; 96374; 96375; 99284; J0780; J2270; J2470; J7030

== ENCOUNTER 2025-07-18 07:43 | Emergency (ER) | payer MEDICAID ==
[~2025-07-18] VITALS: Ht 160 cm; Wt 45.7 kg
--- NOTE | 2025-07-18 08:07 | ED.PDOC ---
GI ASSESSMENT HPI Comments This is a 25 year old female presenting to the ED with chief complaint of abdominal pain. Patient reports that she has been experiencing chronic epigastric abdominal pain with associated nausea and vomiting for the past 2 weeks. Patient relays that she has been seen in the ED for similar symptoms in the past, but she has been unable to see her PCP since last visit. Patient denies any diarrhea, fever, chills, chest pain, or hematemesis. Chief Complaint: Abdominal Pain Time Seen by MD: 08:05 Primary Care Provider: SHARMIN Reviewed Notes: Nurses Notes, Medications, Allergies Allergies: Coded Allergies: NO KNOWN ALLERGIES (Unverified , 03/21/24) Home Meds Active Scripts Nitrofurantoin Monohydrate Mac (Macrobid) 100 Mg Cap, 100 MG PO BID for 7 Days, #14 CAP Prov:LALITA GARCIA MD 06/17/25 Ondansetron Odt 4MG Tab (ZOFRAN PO) 4 Mg Tb, 4 MG PO TIDPRN PRN for 14 Days, #42 TAB ODT TAB-DISSOLVE IN MOUTH, THEN SWALLOW Prov:CARA DORSEY 05/21/25 Nitrofurantoin (Nitrofurantoin) 100 Mg Cap, 1 CAP PO BID for 7 Days, #14 CAP Prov:CARA DORSEY 05/21/25 Chlordiazepoxide Hcl (Ni-1) (I (Librium) 10 Mg Cap, 10 MG PO BID for 7 Days, #14 CAP Prov:GISELLA DA SILVA MD 03/28/25 Chlordiazepoxide Hcl (Ni-1) (I (Librium) 10 Mg Cap, 10 MG PO DAILY for 3 Days, #3 CAP Prov:LALITA GARCIA MD 02/14/25 Ibuprofen (Ibuprofen) 600 Mg Tab, 1 TAB PO TID for 10 Days, #30 TAB 0 Refills Prov:NEGRO ROSSI NP 02/13/25 Ciprofloxacin Hcl (Cipro) 500 Mg Tab, 1 TAB PO BID for 7 Days, #14 TAB 0 Refills Prov:NEGRO ROSSI NP 02/13/25 Amoxicillin & Pot Clavulanate (AUGMENTIN TABLET) 875 Mg Tb, 875 MG PO BID for 5 Days, #10 TAB 0 Refills Prov:NEGRO ROSSI NP 02/13/25 Ondansetron Odt 4MG Tab (ZOFRAN PO) 4 Mg Tb, 4 MG PO Q8HP PRN for 7 Days, #21 TAB ODT TAB-DISSOLVE IN MOUTH, THEN SWALLOW Prov:GISELLA DA SILVA MD 02/04/25 Thiamine Hcl (VITAMIN B-1) 100 Mg Tb, 100 MG PO DAILY for 30 Days, #30 TAB Prov:FABIANO MURDOCK RESIDENT 03/22/24 Folic Acid (Folic Acid) 1 Mg Tab, 1 MG PO DAILY for 30 Days, #30 TAB Prov:FABIANO MURDOCK RESIDENT 03/22/24 Information Source: Patient Mode of Arrival: Ambulatory Timing: Weeks Duration: Since onset Prehospital treatment: None Quality: Aching Vomitus: Watery Stool: Normal Severity: Moderate Recent: None Pain Location: Epigastric Modifying Factors: Nothing Associated sign and symptoms: Nausea, Vomiting, Abdominal Pain Past Medical History PAST MEDICAL HISTORY: Anxiety, GERD 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 Family History Family History: Reviewed,noncontributory to illness, Unknown Social History Smoker: Non-Smoker Alcohol: Occasionally Drugs: Marijuana Lives In: Home Constitutional: denies: chills, diaphoresis, fatigue, fever, malaise, sweats, weakness, others EENTM: denies: blurred vision, double vision, ear bleeding, ear discharge, ear drainage, ear pain, ear ringing, eye pain, eye redness, hearing loss, mouth pain, mouth swelling, nasal discharge, nose bleeding, nose congestion, nose pain, photophobia, tearing, throat pain, throat swelling, voice changes, others Respiratory: denies: cough, hemoptysis, orthopnea, SOB at rest, shortness of breath, SOB with excertion, stridor, wheezing, others Cardiovascular: denies: chest pain, dizzy spells, diaphoresis, Dyspnea on exertion, edema, irregular heart beat, left arm pain, lightheadedness, palpitations, PND, syncope, others Gastrointestinal: reports: abdominal pain, nausea, vomiting; denies: abdomen distended, blood streaked bowels, constipated, diarrhea, dysphagia, difficulty swallowing, hematemesis, melena, poor appetite, poor fluid intake, rectal bleeding, rectal pain, others Genitourinary: denies: abnormal vagina bleeding, burning, dyspareunia, dysuria, flank pain, frequency, hematuria, incontinence, pain, , vagina discharge, urgency, others Neurological: denies: dizziness, fainting, headache, left sided numbness, left sided weakness, numbness, paresthesia, pre-existing deficit, right sided numbness, right sided weakness, seizure, speech problems, tingling, tremors, weakness, others Musculoskeletal: denies: back pain, gout, joint pain, joint swelling, muscle pain, muscle stiffness, neck pain, others Integumetry: denies: bruises, change in color, change in hair/nails, dryness, laceration, lesions, lumps, rash, wounds, others Allergic/Immunocompromised: denies: Difficulty Healing, Frequent Infections, Hives, Itching, others Hematologic/Lymphatic: denies: anemia, blood clots, easy bleeding, easy bruising, swollen glands, others Endocrine: denies: excessive hunger, excessive sweating, excessive thirst, excessive urination, flushing, intolerance to cold, intolerance to heat, unexplained weight gain, unexplained weight loss, others Psychiatric: denies: anxiety, bipolar disorder, depression, hopeless, panic disorder, schizophrenia, sleepless, suicidal, others All Other Systems: Reviewed and Negative Physical Exam General Appearance: Moderate Distress, Normal HEENT: Normal ENT Inspection, Pharynx Normal, TMs Normal Neck: Full Range of Motion, Non-Tender, Normal, Normal Inspection Respiratory: Chest Non-Tender, Lungs Clear, No Accessory Muscle Use, No Respiratory Distress, Normal Breath Sounds Cardiovascular: No Edema, No JVD, No Murmur, No Gallop, Normal Peripheral Pulses, Regular Rate/Rhythm Breast Exam: Deferred Gastrointestinal: No Organomegaly, No Pulsatile Mass, Normal Bowel Sounds, Soft Genitalia: Deferred Pelvic: Deferred Rectal: Deferred Extremities: No calf tenderness, Normal capillary refill, Normal inspection, Normal range of motion, Non-tender, No pedal edema Musculoskeletal : Apperance: Normal Neurologic: 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 Was a procedure done?: No GI differential Dx Differential Diagnosis: Constipation, Diverticular disease, Esophagitis, Gastritis/PUD, Gastroenteritis X-Ray, Labs, Meds, VS Vital Signs Date Time Temp Pulse Resp B/P (MAP) Pulse Ox O2 Delivery O2 Flow Rate FiO2 07/18/25 08:23 91 17 100 Room Air 07/18/25 08:23 98.5 91 17 104/68 (80) 100 98.5 07/18/25 07:44 98.5 132 20 121/85 99 98.5 Lab Test 07/18/25 08:42 07/18/25 08:09 Range/Units Urine Color Dark-yellow Yellow Urine Clarity Turbid H Clear Urine pH 8.0 5.0-9.0 Urine Specific [place] 1.030 1.001-1.035 Urine Protein 1+ H Negative Urine Ketones 1+ H Negative Urine Blood Negative Negative /uL Urine Nitrite Negative Negative Urine Bilirubin 1+ H Negative Urine Urobilinogen 12 H Negative mg/dL Urine Leukocyte Esterase 3+ Negative /uL Urine RBC 6 0 - 4 /hpf Urine Microscopic WBC 43 H 0-5 /HPF Urine Squamous Epithelial Cells Mod <5 /hpf Urine Bacteria Few H None Seen /hpf Urine Mucus Moderate None Seen Urine Glucose Normal Normal mg/dL Urine Opiates Screen Neg NEGATIVE Urine Fentanyl Screen Neg NEGATIVE Urine Barbiturates Screen Neg NEGATIVE Urine Phencyclidine Screen Neg NEGATIVE Urine Amphetamines Screen Neg NEGATIVE Urine Benzodiazepines Screen Neg NEGATIVE Urine Cocaine Screen Neg NEGATIVE Urine Cannabinoids Screen Pos NEGATIVE Sodium Level 138 136-145 mmol/L Potassium Level 3.6 3.5-5.1 mmol/L Chloride Level 95 L 98-107 mmol/L Carbon Dioxide Level 27 20-31 mmol/L Anion Gap 16 H 5-15 Blood Urea Nitrogen 7 L 9-23 mg/dL Creatinine 0.51 L 0.550-1.02 mg/dL Glomerular Filtration Rate Calc 131 >90 mL/min BUN/Creatinine Ratio 13.7 10.0-20.0 Serum Glucose 105 74-106 mg/dL Calcium Level 9.9 8.7-10.4 mg/dL Current Medications Medications (Trade) Dose Ordered Sig/Daniela Route Start Time Stop Time Status Last Admin Sodium Chloride 1,000 ml @ 1,000 mls/hr Q1H ONCE IVB 07/18/25 08:15 07/18/25 09:14 DC 07/18/25 08:22 Patient alert. Complaining of nausea vomiting epigastric discomfort. Vitals stable. Answering all questions. Abdomen is soft nontender. She comes here regularly. No leg swelling. No shortness a breath. Saturation pristine on room air. Reviewed her previous visit. Establish intravenous access. Was given fluids. UA shows UTI. Was given prescription of Bactrim. Explained to the patient. Was told to follow up with her primary care physician. Was told to come back if there is any problem. Time of 1ST Reevaluation: 09:04 Reevaluation 1ST: Unchanged Patient Education/Counseling: Diagnosis, Treatment Family Education/Counseling: No Family Present SEPSIS Sepsis Screen Date sepsis recognized/suspect: Jul 18, 2025 Time Sepsis recognized/suspect: 744 Recent Procedure: No On Antibiotic Therapy: No Respiratory Rate >20: No Heart Rate >90: Yes Temp<36 C (96.8 F) or >38.3 C: No SBP <90 or MAP <65 mmHG: No New Acute Mental Status Change: No Is the patient on CPAP, BIPAP,: No Physician Orders Urine (07/18/25 ) Vital Signs Date Time Temp Pulse Resp B/P (MAP) Pulse Ox O2 Delivery O2 Flow Rate FiO2 07/18/25 08:23 91 17 100 Room Air 07/18/25 08:23 98.5 91 17 104/68 (80) 100 98.5 07/18/25 07:44 98.5 132 20 121/85 99 98.5 Medications Medications Dose Ordered Sig/Daniela Route Start Time Stop Time Status Last Admin Dose Admin Sodium Chloride 1,000 ml @ 1,000 mls/hr Q1H ONCE IVB 07/18/25 08:15 07/18/25 09:14 DC 07/18/25 08:22 Departure 1 Departure Time of Disposition: 08:22 Impression: Primary Impression: Gastritis Qualified Codes: K29.00 - Acute gastritis without bleeding Additional Impression: Urinary tract infection Qualified Codes: N30.00 - Acute cystitis without hematuria Disposition: 01 HOME / SELF CARE / HOMELESS Condition: Good e-Prescriptions Sulfamethoxazole W/Trimethopri (Bactrim Ds Tablet) 1 Tab Tb 1 TAB PO BID for 10 Days, #20 TAB Prov: LALITA GARCIA MD 07/18/25 Discharged With: Self Critical Care Note Critical Care Time?: No Stability Stability form required: No Heart Score Heart Score: Heart Score Response (Comments) Value History N/A 0 EKG N/A 0 Age N/A 0 Risk Factors N/A 0 Troponin N/A 0 Total 0 I personally scribed for LALITA GARCIA MD ([email or web address]) on 07/18/25 at 08:07. Electronically submitted by Balta Herron ([email or web address]). LALITA GARCIA MD Jul 18, 2025 08:07
[2025-07-18] MEDS: SODIUM CHLORIDE 0.9% 1,000 ML IVB ONE (08:22)
[2025-07-18 08:47] LABS: Potassium 3.6 mmol/L (3.5-5.1); Sodium 138 mmol/L (136-145)
[2025-07-18 08:48] LABS: Anion Gap 16 (5-15); Carbon Dioxide 27 mmol/L (20-31)
[2025-07-18 08:49] LABS: Calcium 9.9 mg/dL (8.7-10.4); Chloride 95 mmol/L (98-107)
[2025-07-18 08:53] LABS: Glucose 105 mg/dL (74-106)
[2025-07-18 08:54] LABS: BUN/Creatinine Ratio 13.7 (10.0-20.0)
[2025-07-18 08:59] LABS: Blood Urea Nitrogen 7 mg/dL (9-23)
[2025-07-18 09:11] LABS: Urine Protein, UAD 1+ (Negative)
[2025-07-18 09:13] LABS: Cannabinoid Screen, Urine Pos (NEGATIVE)
[2025-07-18 09:18] LABS: Amphetamine Screen, Urine Neg (NEGATIVE); Barbiturate Scree,Urine Neg (NEGATIVE); Benzodiazephine Screen, Urine Neg (NEGATIVE); Cocaine Screen, Urine Neg (NEGATIVE); Opiate Scree,Urine Neg (NEGATIVE); Phencyclidine Screen, Urine Neg (NEGATIVE)
[2025-07-18] MEDS ORDERED: BACDST PO (11:01)
[2025-07-18 11:17] VITALS: BP 110/67; PULSE 88; RESP 16; TEMP 98; O2SAT 98
== END 2025-07-18 11:21 | disposition home or self-care (01) ==
LOC: ER 07:43
DX: K29.70 Gastritis, unspecified, without bleeding (principal); N39.0 Urinary tract infection, site not specified; Z79.899 Other long term (current) drug therapy
CPT/HCPCS: 36415; 80048; 80307; 81001; 96360; 99283; J7030